=== PATIENT | female | born 1950 | race Caucasian/White ===

== ENCOUNTER 2021-08-24 11:46 | Inpatient (IN) | payer MEDICARE, SELFPAY ==
[2021-08-24] VITALS (29 sets, daily range): BP systolic 98–159; BP diastolic 54–88; PULSE 67–105; RESP 14–27; TEMP 35.7–36.9; O2SAT 85–100; BMI 36.8; BMI 368357.4
--- NOTE | 2021-08-24 11:50 | CM.ED ---
Social Work Note Reason for Referral: STEMI Alert SW responded to STEMI Alert. Pt's brother Forrest Paniagua and neighbor Enrique Granados present at [facility]. SW met with family/friend and provided emotional support. Forrest states that pt is single and has no children. Forrest states he is unaware if pt has LW. Forrest states that pt has no allergies that he is aware of and states that pt has history of High Blood Pressure. Forrest states that pt is not a smoker. [facility] updated RN of this information. Forrest states that pt lives in [place] and [place] lives in [place]. Forrest states that there is a total of 6 siblings - 4 brothers and two sisters. Forrest states that his number is [phone]. Cici Granados, Enrique's , now present at [facility] and states that she can be a second contact if [facility] is not able to get a hold of Forrest. Cici states her number is [phone]. [facility] updated that pt will be going to CT Scan and then to [facility]. Pt's family is able to wait in [facility] waiting area. [facility] updated pt's brother Forrest and neighbors Enrique and Cici. SW led Forrest, Enrique, and Cici to [facility] waiting area. SW to remain available should additional needs arise. Evelia Murphy FORGING PRESS OPERATOR, MEDICAL DIAGNOSTIC RADIOGRAPHER
--- NOTE | 2021-08-24 11:54 | ED.RN ---
PT ARRIVES TO ED VIA EMS, ROSC PRIOR TO ARRIVAL TO ED. PT MOVED TO BED, BAGGING TRANSFERRED FROM EMS TO RESPIRATORY THERAPY. PT PREPPED FOR INTUBATION. EKG COMPLETED, SINUS TACHYCARDIA. PT INTUBATED AT [address] FONTAINE SIZE 7.5 TUBE, 23 CM AT LIP. KAT CATHETER INSERTED AT 1155 BY MALLORY CARDOSO. THREAD TRIMMER PLACED ON ARRIVAL. PT PLACED IN GOWN. PROFESSOR OF RELIGIOUS STUDIES AT BEDSIDE.
--- NOTE | 2021-08-24 11:56 | EKG12_ITS ---
Test Reason : STEMI Blood Pressure : / mmHG Vent. Rate : 108 BPM Atrial Rate : 108 BPM P-R Int : 152 ms QRS Dur : 080 ms QT Int : 356 ms P-R-T Axes : 000 -21 101 degrees QTc Int : 477 ms Sinus tachycardia Nonspecific ST and T wave abnormality Abnormal ECG Confirmed by TRISTAN AL, STAR ([id number]), state editor RADHA OSEI ([id number]) on 08/26/2021 11:02:26 AM Referred By: Gianni Dempsey Confirmed By:STAR HUDSON MD
--- NOTE | 2021-08-24 11:56 | RAD_ITS ---
ACR Level 3 findings have been noted. An addendum which confirms receipt of the report will follow. HISTORY: chest pain, post intubation. TECHNIQUE: XR Chest 1 View. COMPARISON: None. FINDINGS: CARDIOMEDIASTINAL BORDERS: Right mainstem intubation. Endotracheal tube extends to the stomach with the tip excluded from the [id number]. Exaggeration of the cardiac and mediastinal borders secondary to hypoventilatory film. LUNGS: Low lung volumes with patchy opacities in the left lung and mild right basilar opacity. PLEURA: No pleural effusion or pneumothorax seen. OSSEOUS STRUCTURES: Unremarkable. RAD/Chest 1 View (Portable) IMPRESSION: Right mainstem intubation; recommend 6 cm retraction. Satisfactory appearance of nasogastric tube. Low lung volumes with left greater than right atelectasis or pneumonia. Electronically Signed: Staci Jensen MD at 13:01 EDT ,
--- NOTE | 2021-08-24 11:57 | ED.RN ---
HUMERAL HEAD IO INSERTED PER EMS, INFILTRATED ON ARRIVAL TO ED. IO REMOVED. DRESSING PLACED OVER LEFT HUMERAL HEAD SITE.
[2021-08-24] MEDS: 0.9% Normal Saline 1,000 ML 1000 ML IV (12:01)
--- NOTE | 2021-08-24 12:02 | CT_ITS ---
STUDY: CTA CHEST REASON FOR EXAM: Female, 71 years old. Full arrest. CPR RADIATION DOSAGE (If Supplied By Facility): CTDIvol = ( 15.02 ) mGy, DLP = ( 368.73 ) mGycm TECHNIQUE: The examination was performed with the intravenous administration of IV 75mL Isovue-370. Post-processing of the angiographic images was performed, with multiplanar reformation and 3D reconstruction. Individualized dose optimization techniques were used for this CT. COMPARISON: None. FINDINGS: There is an endotracheal tube in place extending 1.7 cm into the right mainstem bronchus. There is an enteric tube in place terminating within the expected region of the distal stomach/proximal duodenum. Motion artifact degrades anatomic detail Normal enhancement of the main pulmonary artery and right and left pulmonary arteries. Normal enhancement of the bilateral peripheral pulmonary arteries. There is no demonstrated pulmonary embolism. There are peripheral calcifications of the descending thoracic aorta. There is no demonstrated aortic dissection. There are calcifications of the coronary arteries. Normal mediastinum. Normal hilar regions. Normal visualized trachea and bronchi. There is dependent consolidation within the upper and lower lobes, most pronounced within the left lower lobe. There are degenerative changes of thoracic spine. Normal visualized upper abdomen. CT/CTA Chest W/WO Contrast IMPRESSION: No demonstrated pulmonary embolism or arterial dissection. Endotracheal tube with in the right mainstem bronchus, recommend retraction by 5 cm. Bilateral dependent consolidation, most pronounced within the left lower lobe. Atherosclerosis. Electronically Signed: Roxane Lezama MD at 13:27 EDT ,
--- NOTE | 2021-08-24 12:02 | CT_ITS ---
STUDY: CT BRAIN WITHOUT CONTRAST REASON FOR EXAM: Female, 71 years old. Changed mental status. CARDIAC ARREST RADIATION DOSAGE (If Supplied By Facility): CTDIvol = ( 44.99 ) mGy, DLP = ( 863.60 ) mGycm TECHNIQUE: Transaxial CT imaging of the brain was performed without administration of intravenous contrast material. Individualized dose optimization techniques were used for this CT. COMPARISON: No relevant priors. FINDINGS: Normal soft tissue structures. Normal calvarium. There is mild cerebral atrophy with widening of the extra-axial spaces and ventricular dilatation. Normal white matter tracts of the cerebral hemispheres. Normal basal ganglia and thalami. Normal brainstem. Normal cerebellum. There is no intracranial hemorrhage. There are no findings of an acute ischemic infarction. Normal visualized paranasal sinuses. CT/Brain/Head without Contrast IMPRESSION: Chronic involutional changes of the brain. Electronically Signed: Roxane Lezama MD at 13:21 EDT ,
[2021-08-24] MEDS: Aspirin 81 MG TAB.CHEW 324 MG PO (12:03)
--- NOTE | 2021-08-24 12:03 | EX.ED.DYSGE1 ---
HPI History of Present Illness Chief Complaint: CPR Informant: EMS Narrative Narrative: Patient is not responding, nonverbal and has I gel airway in place. History is not obtainable from the patient. Family has not yet here. EMS states that they were told last night the patient did not feel well and was having some chest pain. Today she went outside in the yard. Her heard and she evidently fell to the ground. She was not having a pulse or breathing so he started bystander CPR and EMS arrived. CPR was approximately 15 minutes estimated. They found the patient in fine V. fib and then coarse V. fib. She was shocked approximately 4-5 times and about 3 doses of epinephrine. They got return of spontaneous circulation. Initial heart rate was 140s or 150s. I gel was placed. Her heart rate has come down. Her blood pressure is been about 115 or 120. Past medical history: Reportedly high blood pressure only Unknown medications Unknown allergies No recent surgery or travel. Lives at home with unknown smoking status [facility] Medical History HTN (hypertension) Allergy/AdvReac Type Severity Reaction Status Date / Time No Known Allergies Allergy Verified 08/24/21 12:12 Social History Smoking Status: Never smoker ROS ROS ED Review of Systems ROS Unobtainable: due to endotracheal tube and due to mental condition EXAM Physical Exam Const Vital Signs: 08/24/21 11:47 08/24/21 11:51 08/24/21 11:58 Temperature 97.6 F L Temperature Source Temporal Pulse Rate 98 97 Respiratory Rate 16 18 18 Respiratory Depth Respiratory Pattern Blood Pressure 116/66 116/66 128/68 H Blood Pressure Mean 82 88 Pulse Ox 99 85 Oxygen Delivery Method Room Air Room Air Fraction of Inspired Oxygen (FIO2) 08/24/21 12:00 08/24/21 12:04 08/24/21 12:15 Temperature 98.3 F Temperature Source Core Pulse Rate 93 Respiratory Rate 14 Respiratory Depth Normal Respiratory Pattern Normal Blood Pressure 113/69 Blood Pressure Mean 83 Pulse Ox 88 94 98 Oxygen Delivery Method Mechanical Ventilator Mechanical Ventilator Mechanical Ventilator Fraction of Inspired Oxygen (FIO2) 100 08/24/21 12:18 08/24/21 12:53 08/24/21 11:54 Temperature 98.5 F Temperature Source Core Pulse Rate 104 H 97 Respiratory Rate 14 18 Respiratory Depth Respiratory Pattern Normal Blood Pressure 113/69 Blood Pressure Mean 83 Pulse Ox 98 95 Oxygen Delivery Method Room Air Fraction of Inspired Oxygen (FIO2) 100 65 08/24/21 12:00 Temperature Temperature Source Pulse Rate Respiratory Rate Respiratory Depth Respiratory Pattern Blood Pressure Blood Pressure Mean Pulse Ox 87 Oxygen Delivery Method Fraction of Inspired Oxygen (FIO2) 100 Positive well nourished, well developed and obese; Negative for unkempt Constitutional Narrative: Patient has IVs in both arms/hands. IO in the left shoulder but looks a bit swollen around it. I gel is in place. Automatic CPR device is over the patient but is not working at this time as she has a pulse and a heart rate at this time. General Appearance ED: well developed; Negative for unkempt or cyanotic Nutritional Appearance: obese HEENT Reports moist mucous membranes HEENT Narrative: Do not see signs of notable head trauma. Eyes Eyes Narrative: Pupils are about 2 to 3 mm. They do appear to be slightly reactive. Neck Neck Narrative: Thick neck. Very hard to assess for JVD Chest Wall inspection of chest normal Chest Narrative: Good stress is with ambo. Resp No normal respiratory effort Resp Narrative: Relatively clear bilaterally Cardio regular rate and regular rhythm Rate: other Other Details: Heart rate is just about 100. It does appear to be sinus on the monitor. She has palpable peripheral pulses. Peripheral skin color also looks perfused at this time GI normal to inspection, nondistended, normoactive bowel sounds GI Narrative: Obese but otherwise benign. I see no hematomas. Extremity Extremity Narrative: No mottling. No abnormal swelling. No asymmetry. Neuro Neuro Narrative: At this time, patient not responding. There is a tendency toward taking a few breaths independently. Psych Appearance: Negative for unkempt Skin no rashes or lesions noted Skin Narrative: no mottling MDM MDM MDM Narrative Medical decision making narrative: I looked at the patient's plain film of the chest at bedside. It appears as though the tube was about 2 or so centimeters too deep. It was at 23 cm which surprised me that it would look that way on the x-ray. I thought breath sounds were subtly less on the left than the right but they were still present. We pulled back the tube just 1 cm planning to repeat the x-ray. When we pulled back the tube and try to inflate the balloon it felt as though it was in the cords. For this reason we put the balloon back at 23 cm. The repeat x-ray looked slightly improved and her breath sounds did sound better. Since she was oxygenating well, we proceeded to send her to CAT scan as we will get more of a definitive indication of position. When I get the CAT scan images back I looked at those. The tube is too far in. We are going to pull this back 2 cm. She may just have a very short distance between falguni and lips. I did get a call from Dr. Denney as we were putting in orders. He had gone over the EKGs and history with Dr. Dempsey. Plan will be to do a CTA of the chest. She will then go directly to catheterization lab to do a heart cath. We are pending results at this time. I also have hospitalist on page to notify them. Family evidently went up to the Public Administration Teacher. Dr. Denney spoke with him. They stated that patient just did not feel well last night but did not specifically have chest pain. Her heart catheterization showed no obstruction. Final report of CT shows no PE or dissection. Endotracheal tube was in far. We are pulling this back 2 cm in route will repeat image. Patient is only 23 cm and we do not want a pull that back too far. The x-ray was suggesting pulling back 6 cm but this would put her tube only at 17 cm which is very shallow. We will pull this tube back sequentially and repeat imaging. This will likely be done in the ICU. I discussed the case directly with to respiratory therapist and showed them the images and measuring on the CT. We also discussed this with hospitalist and cardiology. They are going to discuss possibility of cooling versus transfer as we cannot do cooling here. We are still pending some blood work at this time. Lab Data Labs: Laboratory Results - last 24 hr 08/24/21 08/24/21 08/24/21 12:00 12:00 12:00 WBC 11.4 H RBC 4.22 Hgb 12.9 Hct 38.7 MCV 91.7 MCH 30.6 MCHC 33.3 RDW Std Deviation 42.6 RDW Coeff of Dougie 12.7 Plt Count 252 MPV 11.3 Immature Gran % (Auto) 4.900 H Neut % (Auto) 58.6 Lymph % (Auto) 26.9 Spencer % (Auto) 7.4 Eos % (Auto) 1.7 Baso % (Auto) 0.5 Absolute Neuts (auto) 6.7 Absolute Lymphs (auto) 3.06 Nucleated RBC % 0 PT 15.3 H INR 1.2 APTT 65.1 H Sodium 139 Potassium 4.1 Chloride 108 H Carbon Dioxide 18.0 L Anion Gap 13 BUN 35 H Creatinine 1.27 H Estim Creat Clear Calc 42.17 Est GFR (MDRD) Af Amer 54 L Est GFR (MDRD) Non-Af 44 L BUN/Creatinine Ratio 27.6 H Glucose 297 H Calcium 8.9 Magnesium 2.1 Troponin I High Sens 283 H* TSH 5.95 H Radiography Diagnostic Testing: Clinical Impression(s) from Imaging Studies Chest X-Ray 08/24/21 11:56 IMPRESSION: Right mainstem intubation; recommend 6 cm retraction. Satisfactory appearance of nasogastric tube. Low lung volumes with left greater than right atelectasis or pneumonia. Electronically Signed: Staci Jensen MD at 13:01 EDT , ADDENDUM: 08/24/21 1324 IMPRESSION: Right mainstem intubation; recommend 6 cm retraction. Satisfactory appearance of nasogastric tube. Low lung volumes with left greater than right atelectasis or pneumonia. N.B. : Suresh Barriga MD, confirmed on 08/24/2021 13:17:20 (ET) that the healthcare facility has received the radiology report. Electronically Signed: Staci Jensen MD at 13:01 EDT , Brain CT 08/24/21 12:02 IMPRESSION: Chronic involutional changes of the brain. Electronically Signed: Roxane Lezama MD at 13:21 EDT , Chest CTA 08/24/21 12:02 IMPRESSION: No demonstrated pulmonary embolism or arterial dissection. Endotracheal tube with in the right mainstem bronchus, recommend retraction by 5 cm. Bilateral dependent consolidation, most pronounced within the left lower lobe. Atherosclerosis. Electronically Signed: Roxane Lezama MD at 13:27 EDT , Chest X-Ray 08/24/21 12:15 IMPRESSION: Endotracheal tube within the right mainstem bronchus, recommend retraction of 4-5 cm. Patchy opacity within the left lower lung may be secondary to underlying atelectasis and/or pneumonia. Electronically Signed: Roxane Lezama MD at 13:29 EDT , Procedures Intubations Intubation Method: orotracheal Intubation Verification: Positive color change (Please see MDM for details regarding intubation and depth of tube. No sedation needed.) Critical Care Time Critical Care Time: Yes Critical care time (excluding procedures): 30-74 minutes and - (52 minutes. Patient care, discussion with consultants and other staff, documentation, reviewing images) Discharge Plan Dx/Rx/DC Orders Clinical Impression: Cardiopulmonary arrest, Respiratory failure, Elevated troponin Disposition Disposition: Acute Care [facility]
[2021-08-24] MEDS: TICAGRELOR 90 MG TABLET 180 MG PO (12:08)
--- NOTE | 2021-08-24 12:11 | ED.RN ---
GHISLAINE CARVER IN GREEN GLASSES CASE IN HER PURSE.
--- NOTE | 2021-08-24 12:11 | ED.RN ---
GOLD [address] IN GREEN GLASSES CASE IN PURSE.
--- NOTE | 2021-08-24 12:13 | ED.RN ---
XRAY PER MINAL REVIEWED. REPORTS ET TUBE NEEDS TO BE WITHDRAWN 1 CM. RESPIRATORY AT BEDSIDE.
--- NOTE | 2021-08-24 12:15 | RAD_ITS ---
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 ET TUBE PLACEMENT#2 TECHNIQUE: Single frontal view of the chest. COMPARISON: 08/24/2021 at 11:58 AM. FINDINGS: There is an endotracheal tube in place extending 0.8 cm into the right mainstem bronchus there is an enteric tube in place terminating caudal to the inferior margin of the image. There is a patchy opacity within the left lower lung. Normal size heart. Normal mediastinum and loco. Normal visualized pulmonary arteries. Normal visualized aortic arch and descending thoracic aorta. Normal visualized thoracic spine. Normal visualized ribs, clavicles, and shoulders. There is no demonstrated abnormality of the visualized soft tissue structures of the upper abdomen. RAD/Chest 1 View (Portable) IMPRESSION: Endotracheal tube within the right mainstem bronchus, recommend retraction of 4-5 cm. Patchy opacity within the left lower lung may be secondary to underlying atelectasis and/or pneumonia. Electronically Signed: Roxane Lezama MD at 13:29 EDT ,
[2021-08-24] MEDS: Heparin Injection (Vial) 5,000 UNIT/ML VIAL 4000 UNIT IV (12:21)
[2021-08-24 12:22] LABS: Absolute Lymphocyte Count 3.06 X10^3/uL (0.83-4.51); Absolute Neutrophil Count 6.7 X10^3/uL (2.0-7.7); Basophil# 0.06 X10^3/uL; Basophil% 0.5 % (0-1); Eosinophil# 0.19 X10^3/uL; Eosinophils% 1.7 % (0-5); Hematocrit 38.7 % (37-47); Hemoglobin 12.9 g/dL (12.0-15.0); Lymphocyte # 3.06 X10^3/ul (0.83-4.51); Lymphocyte % 26.9 % (19-41); Mean Corp Hgb Conc 33.3 g/dL (32-36); Mean Corpuscular Hgb 30.6 pg (27.0-32.0); Mean Corpuscular Volume 91.7 fL (81-99); Mean Platelet Vol. 11.3 fl (6.2-12.0); Monocyte# 0.84 X10^3/uL; Monocyte% 7.4 % (0-10); NRBC Flagged by Analyzer 0 % (0-5); Neutrophil # 6.68 X10^3/uL (2.7-7.7); Neutrophil % 58.6 % (47-70); Platelet Count 252 K/mm3 (150-450); RBC Distribution Width CV 12.7 % (11.6-14.6); RBC Distribution Width SD 42.6 fl (35.1-43.9); Red Blood Count 4.22 M/mm3 (4.2-5.4); White Blood Count 11.4 K/mm3 (4.4-11.0)
[2021-08-24] MEDS: HEPARIN/D5w 25,000 UNITS 25,000 UNITS/250 ML IV.SOLN. 10 UNITS CONT INF (12:22)
[2021-08-24 12:31] LABS: International Normalized Ratio 1.2; Prothrombin Time (Protime)PT. 15.3 SECONDS (11.7-14.9)
[2021-08-24 12:32] LABS: Partial Thromboplast Time 65.1 Seconds (24.1-36.2)
--- NOTE | 2021-08-24 12:54 | ED.RN ---
WHEN RESPIRATORY ATTEMPTED TO WITHDRAW ET TUBE, DIFFICULTY OCCURRED, UNABLE TO WITHDRAW. TUBE REMAINING AT 23CM AT LIP. DR. FONTAINE INFORMED. DR. FONTAINE ORDERS REPEAT XRAY. AIRWAY MANAGED PER RESPIRATORY.
[2021-08-24 13:39] LABS: Anion Gap 13 (5-15); BUN 35 mg/dL (7-18); BUN/Creat Ratio 27.6 RATIO (10-20); Calcium,Total 8.9 mg/dL (8.5-10.1); Chloride 108 mmol/L (98-107); Creatinine, Serum 1.27 mg/dL (0.55-1.02); EST Glomerular Filtration Rate 44 mL/min (>60); Est Glom Filt Rate - Afr Amer 54 mL/min (>60); Estimated Creatinine Clearance 42.17 ml/min; Glucose 297 mg/dL (74-106); Magnesium 2.1 mg/dL (1.6-2.6); Potassium 4.1 mmol/L (3.5-5.1); Sodium Level 139 mmol/L (136-145); Thyroid Stim Hormone (TSH) 5.95 uIU/mL (0.358-3.74); Troponin-I HS (w/2H Reflex) 283 pg/mL (3.0-54.0)
--- NOTE | 2021-08-24 13:50 | CL.D_ITS ---
Patient Name: AYESHA OTTO Study Date: 08/24/2021 Performing: Robbie Denney MD Ht: 68.11 inches 173 cm : 1950 Wt: 242.51 lbs 110 kg Age: 71 Gender: female BSA: 2.22 PROCEDURE(S) PERFORMED [id number])LHC/COR/LV CLINICAL PROFILE AND INDICATIONS Indications: Other Heart Failure: None Stress/Imaging Stress/Image Study Performed: No CAD Presentations: Other: Cardiac arrest CONCLUSIONS Non obstructive coronary arteries Normal LV size, wall motion,and systolic function RECOMMENDATIONS Medical therapy DESCRIPTION OF PROCEDURE The patient arrived to the procedure lab. The risks and benefits of the procedure as well as a full d escription of our services here and current unavailability of surgical backup were fully explained to the patient and/or their significant other prior to the catheterization. The Timeout was completed, verifying the correct patient and procedure. The patient's procedural site was prepped and draped in the usual fashion. Local anesthetic was given subcutaneously to right radial region with Lidocaine 2% . Using a modified Seldinger technique, arterial access was obtained via the right radial artery, a 6 Fr sheath was inserted. Left Coronary Artery selective angiography was performed in multiple views u sing a 5 Fr. 4.0 Marion catheter. Right Coronary Artery selective angiography was then performed in mu ltiple views using a 5 Fr. 4.0 Marion catheter. Left Ventriculography was performed in LOUIS projection using a 5 Fr. Pigtail catheter. LV to AO pullback pressures were then recorded.The arterial sheath was pulled and a TR Band was applied for hemostasis. 8cc of air CORONARY ANGIOGRAPHY DOMINANCE: Right Dominant LEFT HEART ASSESSMENT Left Ventricular Ejection Fraction: by LV Gram 60 % Normal LV wall motion Normal Left Ventricular systolic function LEFT MAIN: Angiographically normal, No significant disease noted LEFT ANTERIOR DESCENDING ARTERY: Mild luminal irregularities less than 30% CIRCUMFLEX ARTERY: Mild luminal irregularities less than 30% RIGHT CORONARY ARTERY: Mild luminal irregularities less than 30% COMPLICATIONS No Complications PROCEDURE MEDICATIONS Oxygen: 60 % FiO2 via ventilator. See Resp Record for Settings Heparin 25,000u / 250ml D5W @ 10 u/hr IV started in ED 08/24/2021 12:53:27 Heparin 25,000u / 250ml D5W @ u/hr discontinued 08/24/2021 12:57:54 SUMMARY OF HEMODYNAMIC DATA Time AIR REST ECG 12:51:08 AO 112/70 (88) SA 13:02:42 LV 110/9, 12 13:09:22 LV 103/12, 14 13:09:29 LV 113/15, 22 13:10:50 LVp 104/27, 53 13:11:00 AOp 121/70 (94) 13:11:05 Signed By Robbie Denney MD On 08/24/2021 13:48:54 Robbie Denney MD
--- NOTE | 2021-08-24 14:02 | PCM.CONS.C ---
Assessment & Plan Assessment/Plan (1) Cardiopulmonary arrest: PLAN: Patient is status post pulmonary arrest. She underwent a cardiac catheterization today which demonstrates essentially normal coronary arteries with preserved ejection fraction. At this point in time it does not appear that a cardiac etiology was responsible for the above. Will continue to follow peripherally. HPI Consult Data Date of Consult: 08/24/21 HPI Narrative HPI Narrative: AYESHA OTTO, is a 71 F who presents to the emergency room with a cardiorespiratory arrest. The patient apparently was not feeling well yesterday but this morning felt well enough to take a power tool and go try to fix a deck in her brother's house. She had no cardiac complaints but then after the brother went in and came back she was apparently lying on the deck foaming at the mouth with a power tool. She had denied any dizziness diaphoresis near syncope or syncope prior to the above. Her EKG was transmitted initially and showed sinus tachycardia and initially was thought to be a STEMI but on further evaluation was not. When she arrived in the emergency room her EKG demonstrated sinus rhythm with no acute changes. After discussion with interventional is in the ER physician the patient was taken emergency to the CAT scan and then brought to the cardiac catheterization lab. [facility] Medical History HTN (hypertension) Allergy/AdvReac Type Severity Reaction Status Date / Time No Known Allergies Allergy Verified 08/24/21 12:12 Social History Smoking Status: Never smoker ROS Review of Systems ROS Unobtainable: due to encephalopathy and due to endotracheal tube Physical Exam Const alert, oriented x3 and no apparent distress General Appearance: cooperative HEENT hearing grossly normal bilaterally Head and Scalp: atraumatic Eyes EOMs intact bilaterally Neck General: normal visual inspection Chest inspection of chest normal and palpation of chest normal Resp normal respiratory effort Auscultation: clear to auscultation bilaterally Cardio regular rate, regular rhythm, S1 normal heart sound and S2 normal heart sound Jugular Venous Distention: JVD GI normal to inspection, nondistended, normoactive bowel sounds Extremity normal capillary refill and no pedal edema Peripheral Pulses: Yes pulses 2+ throughout and femoral pulses present Skin no rashes or lesions noted Neuro oriented x3 and CN's II-XII intact bilaterally Psych Appearance: grossly normal and appropriate Risk Stratification Risk Stratification Applicable: No Objective Data Vital Signs: Vital Signs Temp Pulse Resp BP Pulse Ox O2 Del Method FiO2 98.5 F 89 14 113/69 98 Room Air 100 08/24/21 12:53 08/24/21 13:55 08/24/21 12:53 08/24/21 12:53 08/24/21 12:53 08/24/21 12:53 08/24/21 12:18 Oxygen Delivery Method Room Air Weight: 242 lb 4.608 oz Body Mass Index (BMI) 36.8 Lab / Micro Data Result Diagrams: 08/24/21 12:00 08/24/21 12:00 Labs: Laboratory Results - last 24 hr 08/24/21 12:00: WBC 11.4 H, RBC 4.22, Hgb 12.9, Hct 38.7, MCV 91.7, MCH 30.6, MCHC 33.3, RDW Std Deviation 42.6, RDW Coeff of Dougie 12.7, Plt Count 252, MPV 11.3, Immature Gran % (Auto) 4.900 H, Neut % (Auto) 58.6, Lymph % (Auto) 26.9, [place] % (Auto) 7.4, Eos % (Auto) 1.7, Baso % (Auto) 0.5, Absolute Neuts (auto) 6.7, Absolute Lymphs (auto) 3.06, Nucleated RBC % 0 08/24/21 12:00: Sodium 139, Potassium 4.1, Chloride 108 H, Carbon Dioxide 18.0 L, Anion Gap 13, BUN 35 H, Creatinine 1.27 H, Estim Creat Clear Calc 42.17, Est GFR (MDRD) Af Amer 54 L, Est GFR (MDRD) Non-Af 44 L, BUN/Creatinine Ratio 27.6 H, Glucose 297 H, Calcium 8.9, Magnesium 2.1, Troponin I High Sens 283 H*, TSH 5.95 H 08/24/21 12:00: PT 15.3 H, INR 1.2, APTT 65.1 H Cardiology Labs/Tests 08/24/21 12:00: WBC 11.4 H, RBC 4.22, Hgb 12.9, Hct 38.7, MCV 91.7, MCH 30.6, MCHC 33.3, Plt Count 252, MPV 11.3, Immature Gran % (Auto) 4.900 H, Neut % (Auto) 58.6, Lymph % (Auto) 26.9, [place] % (Auto) 7.4, Eos % (Auto) 1.7, Baso % (Auto) 0.5, Absolute Neuts (auto) 6.7, Nucleated RBC % 0 08/24/21 12:00: Sodium 139, Potassium 4.1, Chloride 108 H, Carbon Dioxide 18.0 L, Anion Gap 13, BUN 35 H, Creatinine 1.27 H, Est GFR (MDRD) Af Amer 54 L, Est GFR (MDRD) Non-Af 44 L, BUN/Creatinine Ratio 27.6 H, Glucose 297 H, Calcium 8.9, Magnesium 2.1 08/24/21 12:00: PT 15.3 H, INR 1.2, APTT 65.1 H Rhythm: EKG: ECHO: Stress Test: Cardiac Cath: PCI: CT Surgery: Holter monitor: EPS: PPM: CXR: Chest CT Scan: Radiography Diagnostic Testing: Radiology Impression Chest X-Ray 08/24/21 11:56 IMPRESSION: Right mainstem intubation; recommend 6 cm retraction. Satisfactory appearance of nasogastric tube. Low lung volumes with left greater than right atelectasis or pneumonia. Electronically Signed: Staci Jensen MD at 13:01 EDT Reading Location ID and State: [facility] / [place] Tel , Service support , ADDENDUM: 08/24/21 1324 IMPRESSION: Right mainstem intubation; recommend 6 cm retraction. Satisfactory appearance of nasogastric tube. Low lung volumes with left greater than right atelectasis or pneumonia. N.B. : Suresh Barriga MD, confirmed on 08/24/2021 13:17:20 (ET) that the healthcare facility has received the radiology report. Electronically Signed: Staci Jensen MD at 13:01 EDT , Brain CT 08/24/21 12:02 IMPRESSION: Chronic involutional changes of the brain. Electronically Signed: Roxane Lezama MD at 13:21 EDT , Chest CTA 08/24/21 12:02 IMPRESSION: No demonstrated pulmonary embolism or arterial dissection. Endotracheal tube with in the right mainstem bronchus, recommend retraction by 5 cm. Bilateral dependent consolidation, most pronounced within the left lower lobe. Atherosclerosis. Electronically Signed: Roxane Lezama MD at 13:27 EDT , Chest X-Ray 08/24/21 12:15 IMPRESSION: Endotracheal tube within the right mainstem bronchus, recommend retraction of 4-5 cm. Patchy opacity within the left lower lung may be secondary to underlying atelectasis and/or pneumonia. Electronically Signed: Roxane Lezama MD at 13:29 EDT ,
[2021-08-24] MEDS: Morphine 4 MG/ML Syringe IV (14:05)
--- NOTE | 2021-08-24 14:05 | CPS ---
pt et tube was left at [address] del castillo with very full remotely piloted vehicle controller balloon problem
--- NOTE | 2021-08-24 14:05 | CPS ---
when et tube moved in ER per dr frost to 22 cm at lip the cuff over inflated with minimal air making the ems helicopter pilot baloon over expand risking it popping. ET tube was placed back at 23 and issue resolved. Upon reaching the floor was instructed by dr del castillo to pull tube back to 21 cm. When this was done the same issue occurred with the ems helicopter pilot balloon being overinflated. Dr. del castillo then informed to pull tube back to 20cm of which same issue occured with overinflated ems helicopter pilot cuff. Then she informed to put tube back at 23 of which then had same issue with cuff being very full when it did not occur before. Was then instructed to put et tube back at 21 even though the ems helicopter pilot cuff very full with minimal air. Patients tidal volume and vitals stable and patient resting easy.
[2021-08-24] MEDS: 0.9% Normal Saline 1,000 ML 70 ML IV (14:10)
[2021-08-24] MEDS: Propofol 10MG/Ml 1,000 MG/100 ML Bottle 6.6 MG CONT INF (14:11)
--- NOTE | 2021-08-24 14:14 | ECHOCS_ITS ---
Reason For Study: Syncope Procedure This was a 2D Doppler, Color Flow transthoracic echocardiogram. The study was technically difficult. Contrast injection was performed. Exam performed portable in ICU/CCU. Left Ventricle Normal LV size. Left ventricular systolic function is normal. The estimated ejection fraction is 55 %. Stage 1 diastolic dysfunction. No regional wall motion abnormalities noted. Right Ventricle Normal RV size. Normal systolic function. Atria Normal left atrium. Normal right atrium. Mitral Valve Normal mitral valve. Tricuspid Valve Normal tricuspid valve. Aortic Valve Normal aortic valve. Pulmonic Valve Normal pulmonic valve. Great Vessels Normal aortic root. The pulmonary artery is normal size. Normal inferior vena cava. Pericardium/Pleural No pericardial effusion. Medication Diluted definity 2ml given slow IV push to enhance endocardial definition. MMode/2D Measurements & Calculations LVIDd: 4.3 cm IVSd: 1.1 cm Ao root diam: 3.2 cm LVIDs: 3.0 cm LVPWd: 1.2 cm RVDd: 2.4 cm FS: 31.2 % LAV(MOD-bp): 48.0 ml LA A4 area: 18.7 cm2 LA dimension(2D): 3.2 cm LAV(MOD-bp) Indexed: 21.7 ml/m2 LAV(MOD-sp2): 40.0 ml LAV(MOD-sp4): 53.0 ml RA A4 area: 13.3 cm2 Time Measurements MV dec time: 0.17 sec Doppler Measurements & Calculations MV E max suresh: 63.6 cm/sec Lat Peak E' Suresh: 9.5 cm/sec Med Peak E' Suresh: 7.2 cm/sec MV A max suresh: 64.2 cm/sec E/E' lat: 6.7 E/E' med: 8.9 MV E/A: 0.99 MV V2 max: 81.2 cm/sec MV dec slope: 377.7 cm/sec2 Ao V2 max: 165.8 cm/sec MV max P.6 mmHg Ao max P.0 mmHg MV V2 mean: 57.2 cm/sec MV mean P.4 mmHg MV V2 VTI: 20.8 cm LV V1 max: 110.7 cm/sec PA V2 max: 122.0 cm/sec LV V1 max P.9 mmHg ECHO/Echo Complete W/ Contrast Interpretation Summary Normal LV size. Left ventricular systolic function is normal. The estimated ejection fraction is 55 %. Stage 1 diastolic dysfunction. Contrast injection was performed. Ordering Physician: Angela Milian Referring Physician: Gianni Dempsey Performed By: Elizabeth Stroud RCS
--- NOTE | 2021-08-24 14:17 | PCM.HP.STD ---
Documented by User: Dr. Angela Milian DO 08/24/21 18:19 HPI - General General Date of Admission: 08/24/21 Date of Service: 08/24/21 Chief Complaint: CPA HPI Narrative Dr. Milian Ms. Otto is a 71-year-old white female who presented to the emergency department [facility] on 08/24/2021 following a cardiopulmonary arrest. Her history is obtained from her family. Evidently he and the patient had been working on replacing deck boards at his house for the last 2 days. Yesterday the patient reported that she had not been feeling well but was nonspecific in her complaints at that time. The patient evidently arrived at his house at 10 AM to help and she reported at that time she had difficulty sleeping and had some chest pain through the night. He reported she told him that she woke up ate something and then was able to get some sleep and was feeling better. She went outside and began using a drill to remove screws from the deck to replace the boards and had me removed approximately 6 screws. She had been outside no longer than 5 to 10 minutes at which time he found her lying on the deck with her eyes open and foaming at the mouth. The brother at that time called a neighbor who came over to his house and started CPR on the patient. She was down for an unknown amount of time before CPR was initiated. EMS was called at that time as well. Upon EMS arrival the patient's rhythm was fine V. fib and then coarse V. fib. CPR was continued and she was given approximately 4-5 shocks and 3 rounds of epinephrine. ROSC was achieved with initial heart rate of 140s to 150s and advanced airway was placed. Her EKG on transport to the hospital was concerning for a STEMI and a STEMI team was called. Estimated CPR time was approximately 15 minutes. Repeat EKG at the emergency department showed resolution of ST elevation. Upon arrival to the emergency department her temperature was 97.6, heart rate 98, blood pressure 116/66, respiratory rate of 16 and her oxygen saturations were 99% with artificial airway at 100%. Her CBC is overall unremarkable showing only a mild white count elevation 11.4. Her coags were unremarkable. Her chemistry panel showed mild hyperchloremia with a chloride of 108 and a serum bicarb of 18, BUN was 35 and serum creatinine was 1.27, transaminases were elevated for an AST of 121 and ALT of 107. Alk phos and bilirubin are normal. Initial troponin was 283 and not unexpectedly her CK was elevated at 264. Hemoglobin A1c was obtained as her initial blood sugar was 297 and was found to be 5.8. Her TSH is 5.95. Her UA is unremarkable. Her serum tox screen is positive for opiates which she was given here and benzodiazepines. Ethyl alcohol level was less than 3. She was taken emergently to the cardiac lab [employer] and was found to have unremarkable coronary disease at less than 30% in any given vessel. On admission a CT of her brain showed only chronic involutional changes. Her CTA showed no pulmonary embolism or arterial dissection, her endotracheal tube was in the right mainstem bronchus, and she had bilateral dependent consolidation most pronounced in the left lower lobe along with atherosclerosis. Given her ET tube being in the right mainstem bronchus her tube was pulled back 3 cm. [employer] Student AYESHA OTTO, is a 71 F who presents to the [facility] emergency department following cardiopulmonary arrest. Per patient's brother, he and the patient have been working to replace deck boards yesterday and today. Yesterday, the patient complained of not feeling well. The patient arrived to her brother's house today at approximately 10 AM and reported to have had difficulty sleeping last night with chest pain. However, the patient woke up this morning, ate something, and was then able to get some sleep. The patient then went outside and began using the drill to remove deck screws. The brother states she had been outside just long enough to remove maybe 6 screws and he found her lying on the deck, eyes open, and foaming at the mouth. The brother then called the neighbor who responded and began CPR. EMS arrived and found the patient in fine V. fib and then coarse V. fib.? She was shocked approximately 4-5 times and about 3 doses of epinephrine.? They got return of spontaneous circulation.? Initial heart rate was 140s or 150s.? I gel was placed.?Her EKG was transmitted initially and showed sinus tachycardia and initially was thought to be a STEMI, and a STEMI alert was called LIC[employer]ED [employer] DIRECT[employer] AND EMBAL[employer]. On arrival, EMS estimated CPR time to be approximately 15 minutes. The patient's initial vital signs on arrival to the emergency department were temperature of 97.6, heart rate 98, blood pressure 116/66, respiratory rate of 16, and oxygen saturation of 99% on room air. Her repeat EKG demonstrated sinus rhythm with no acute changes. The patient remained unresponsive however and was intubated. Per the emergency physician, the patient was somewhat of a difficult intubation. There was also some difficulty inflating the cuff fully when withdrawn from the right main bronchus, as per the chest xray, and was returned to the initial depth of 23cm. The case was discussed with cardiology, and a CTA of the chest was performed enroute to the [employer] and given aspirin, Brilinta, heparin bolus, and 1 L bolus. Catheterization revealed essentially normal coronary arteries with preserved ejection fraction. Laboratory results showed normal CBC, normal electrolytes, and elevated BUN/creatinine at 35 and 1.27. Glucose was also elevated at 297. The patient was admitted to the intensive care unit for further work-up and management. [facility] Medical History GERD (gastroesophageal reflux disease) HTN (hypertension) Hyperlipidemia Obesity (BMI 30-39.9) Allergy/AdvReac Type Severity Reaction Status Date / Time No Known Allergies Allergy Verified 08/24/21 12:12 Family History Father Diabetes Mother Congestive heart disease Brother Diabetes Hypertension Sister Hypertension Family History unable to obtain unable to obtain Surgical History History of arthroscopic knee surgery History of carpal tunnel release History of toe surgery Surgical History unable to obtain unable to obtain Social History household members: none housing: house Smoking Status: Never smoker alcohol intake: current alcohol intake frequency: holidays/special occasions only substance use type: does not use ROS Review of Systems ROS Unobtainable: due to endotracheal tube and due to mental status Vital Signs Vital Signs Vital Signs: 08/24/21 11:47 08/24/21 11:51 08/24/21 11:58 Temperature 97.6 F L Temperature Source Temporal Pulse Rate 98 97 Respiratory Rate 16 18 18 Respiratory Depth Respiratory Pattern Blood Pressure 116/66 116/66 128/68 H Blood Pressure Mean 82 88 Pulse Ox 99 85 Oxygen Delivery Method Room Air Room Air Fraction of Inspired Oxygen (FIO2) 08/24/21 12:00 08/24/21 12:04 08/24/21 12:15 Temperature 98.3 F Temperature Source Core Pulse Rate 93 Respiratory Rate 14 Respiratory Depth Normal Respiratory Pattern Normal Blood Pressure 113/69 Blood Pressure Mean 83 Pulse Ox 88 94 98 Oxygen Delivery Method Mechanical Ventilator Mechanical Ventilator Mechanical Ventilator Fraction of Inspired Oxygen (FIO2) 100 08/24/21 12:18 08/24/21 12:53 08/24/21 11:54 Temperature 98.5 F Temperature Source Core Pulse Rate 104 H 97 Respiratory Rate 14 18 Respiratory Depth Respiratory Pattern Normal Blood Pressure 113/69 Blood Pressure Mean 83 Pulse Ox 98 95 Oxygen Delivery Method Room Air Fraction of Inspired Oxygen (FIO2) 100 65 08/24/21 12:00 08/24/21 13:55 08/24/21 12:25 Temperature Temperature Source Pulse Rate 89 Respiratory Rate Respiratory Depth Respiratory Pattern Blood Pressure Blood Pressure Mean Pulse Ox 87 98 Oxygen Delivery Method Fraction of Inspired Oxygen (FIO2) 100 60 Weight Weight: 109.9 kg Body Mass Index (BMI) 36.8 Physical Exam Const well nourished Constitutional Narrative: Older obese white female lying in bed currently intubated, responsive to noxious stimuli i.e. suctioning with movement of bilateral upper extremities but no spontaneous eye opening or meaningful interaction HEENT normocephalic, head/scalp atraumatic and moist oral mucous membranes HEENT Narrative: ET tube present and secured Eyes conjunctivae normal Eyes Narrative: Pupils are 2 mm and reactive to light bilaterally. No scleral icterus. Significant eye watering Neck no lymphadenopathy and supple Resp no retractions, no use of accessory muscles and clear to auscultation bilaterally Effort and Inspection: symmetric chest movement and mechanically ventilated Cardio regular rate, regular rhythm, S1 normal heart sound, S2 normal heart sound, no murmurs, no rub, no gallops and no clicks GI normal to inspection, nondistended, normoactive bowel sounds, soft to palpation, non-tender and non-distended Extremity normal to inspection and no clubbing, cyanosis or edema Extremity Narrative: 2+ pulses upper and lower extremities Skin no rashes or lesions noted, no wounds, skin turgor normal, no jaundice, no petechiae and no mottling Neuro moves all extremities and deep tendon reflexes 2+ bilaterally Neuro Narrative: Patient spontaneously moves all 4 extremities with suctioning and adjustment of the ET tube but no purposeful or meaningful interaction Motor Exam: no fasciculations and clonus absent Comatose: response to noxious stimuli present Results Lab / Micro Data Result Diagrams: 08/24/21 12:00 08/24/21 12:00 Labs: Laboratory Results - last 24 hr 08/24/21 12:00: WBC 11.4 H, RBC 4.22, Hgb 12.9, Hct 38.7, MCV 91.7, MCH 30.6, MCHC 33.3, RDW Std Deviation 42.6, RDW Coeff of Dougie 12.7, Plt Count 252, MPV 11.3, Immature Gran % (Auto) 4.900 H, Neut % (Auto) 58.6, Lymph % (Auto) 26.9, [place] % (Auto) 7.4, Eos % (Auto) 1.7, Baso % (Auto) 0.5, Absolute Neuts (auto) 6.7, Absolute Lymphs (auto) 3.06, Nucleated RBC % 0 08/24/21 12:00: Sodium 139, Potassium 4.1, Chloride 108 H, Carbon Dioxide 18.0 L, Anion Gap 13, BUN 35 H, Creatinine 1.27 H, Estim Creat Clear Calc 42.17, Est GFR (MDRD) Af Amer 54 L, Est GFR (MDRD) Non-Af 44 L, BUN/Creatinine Ratio 27.6 H, Glucose 297 H, Calcium 8.9, Magnesium 2.1, Troponin I High Sens 283 H*, TSH 5.95 H 08/24/21 12:00: PT 15.3 H, INR 1.2, APTT 65.1 H Radiology Impression Chest X-Ray 08/24/21 11:56 IMPRESSION: Right mainstem intubation; recommend 6 cm retraction. Satisfactory appearance of nasogastric tube. Low lung volumes with left greater than right atelectasis or pneumonia. Electronically Signed: Staci Jensen MD at 13:01 EDT , ADDENDUM: 08/24/21 1324 IMPRESSION: Right mainstem intubation; recommend 6 cm retraction. Satisfactory appearance of nasogastric tube. Low lung volumes with left greater than right atelectasis or pneumonia. N.B. : Suresh Barriga MD, confirmed on 08/24/2021 13:17:20 (ET) that the healthcare facility has received the radiology report. Electronically Signed: Staci Jensen MD at 13:01 EDT , Brain CT 08/24/21 12:02 IMPRESSION: Chronic involutional changes of the brain. Electronically Signed: Roxane Lezama MD at 13:21 EDT , Chest CTA 08/24/21 12:02 IMPRESSION: No demonstrated pulmonary embolism or arterial dissection. Endotracheal tube with in the right mainstem bronchus, recommend retraction by 5 cm. Bilateral dependent consolidation, most pronounced within the left lower lobe. Atherosclerosis. Electronically Signed: Roxane Lezama MD at 13:27 EDT , ADDENDUM: 08/24/21 1409 IMPRESSION: undefined Chest X-Ray 08/24/21 12:15 IMPRESSION: Endotracheal tube within the right mainstem bronchus, recommend retraction of 4-5 cm. Patchy opacity within the left lower lung may be secondary to underlying atelectasis and/or pneumonia. Electronically Signed: Roxane Lezama MD at 13:29 EDT , Assessment & Plan Assessment/Plan (1) Cardiopulmonary arrest: (2) Respiratory failure: (3) Elevated troponin: (4) Elevated serum creatinine: (5) Hyperglycemia: (6) Rib fractures: PLAN: Plan Dr. Milian CPA -Estimated CPR time at least 15 minutes after EMS arrival -Uncertain downtime prior -Etiology uncertain at this time given negative work-up thus far -Check echocardiogram -Check EEG -Will consider further brain imaging depending on response -Check for infectious etiologies -Check procalcitonin -We will hold on empiric antibiotics at this time -Tox screen is overall unimpressive however she did have benzodiazepines on her talk screen and we are unclear where these came from -Cardiac catheterization unremarkable -Consult ICU medicine Acute hypoxic respiratory failure secondary to CPA -Maintain ventilation -Initial ABG showed respiratory acidosis and ventilator changes were made with noted correction on repeat ABG -Repeat ABG in a.m. -Check a.m. chest x-ray -Propofol and fentanyl for sedation -Patient with a ET tube in place however unable to inflate cuff but obtaining adequate volumes on the ventilator -Critical care medicine consulted Rib fractures -Likely related to CPR -Patient on sedation with fentanyl and propofol at this time -We will have to further evaluate once patient is more awake Troponin elevation -Likely related to defibrillation efforts -No reason for further cycle -Cardiac cath was unremarkable Transaminitis -Could be related to arrest however patient does also have fatty liver at baseline -We will trend Hyperglycemia -blood sugar was 297 on arrival -A1c was obtained and found to be 5.8 -We will utilize sliding scale insulin every 6 hours -Accu-Cheks every 6 hours -May be able to discontinue insulin and Accu-Cheks if blood sugars normalize Hypertension -Patient takes atenolol 50 mg at baseline -Hold antihypertensives at this time -As needed medications available GERD -Patient on omeprazole 20 mg at home -We will continue on Protonix 40 mg here Hyperlipidemia -Patient on simvastatin 40 mg at baseline -Continue to hold Obesity -BMI 36.8 -Complicates treatment, prognosis, outcomes -Recommend weight loss DVT prophylaxis -Lovenox subcu daily -SCDs CODE STATUS -Full code [employer] Student Cardiopulmonary arrest ? Estimated CPR time of 15 minutes ? Uncertain etiology, given negative heart cath, head CT, chest CTA, and blood work thus far ? Check echo ? Blood cultures to investigate infectious cause ? Check EEG ? Tox screen, phos, mag, procalcitonin pending ? TSH elevated at 5.95 ? Consult motion study engineer ? Trend CMP, CBC ? Maintain core temperature monitoring Respiratory failure ? Patient remains nonresponsive without spontaneous respirations following ROSC ? Maintain ET tube/OG tube ? Vent settings with tidal volume of 400 ml, per ideal body weight ? ABG shows respiratory acidosis with pH of 7.22 and PaCO2 at 55.9, respirations set to 17 ? Propofol and fentanyl drip for sedation ? Reduce FiO2 as tolerated to keep Spo2 94-99% ? Trend ABGs ? COVID-negative, sputum culture pending Elevated troponin ? Troponin on arrival to 83-->2107 ? Cardiac catheterization revealed no significant disease in left main and less than 30% luminal irregularities in the LAD, circumflex, and RCA with estimated EF of 60% ? Trend serial cardiac enzymes Elevated serum creatinine ? Creatinine 1.27 ? Unsure patient baseline ? Trend BMP ? Gentle hydration with 0.9 normal saline at 70 mL an hour Transaminitis ? Unclear etiology, possibly secondary to cardiopulmonary arrest ? Trend CMP Rib fractures ? Nondisplaced anterior and lateral, as per chest CTA ? Secondary to CPR Hyperglycemia ? Glucose 297 on arrival ? Per family, not diabetic, despite strong family history, likely reactive ? Hemoglobin A1c 5.8 ? Insulin lispro per sliding scale protocol every 6 hours History of hypertension ? Holding home atenolol, per prescription last filled May 2021 ? Hydralazine 10 mg IV as needed 6 hours for systolic blood pressure greater than 160 History of hyperlipidemia ? Holding home simvastatin, per prescription last filled May 2021 History of GERD ? Holding home omeprazole, per prescription last filled June 2021 ? Pantoprazole 40 mg IV daily DVT prophylaxis ? Enoxaparin 40 mg subcu daily ? SCDs CODE STATUS ? Full code Charges/Coding Visit Charges Inpatient E&M: 35693 Init Hosp L3 Documented by User: CHARLEE LAGUNAS 08/24/21 17:37 HPI - General General Date of Admission: 08/24/21 HPI Narrative AYESHA OTTO, is a 71 F who presents to the [facility] emergency department following cardiopulmonary arrest. Per patient's brother, he and the patient have been working to replace [employer] boards yesterday and today. Yesterday, the patient complained of not feeling well. The patient arrived to her brother's house today at approximately 10 AM and reported to have had difficulty sleeping last night with chest pain. However, the patient woke up this morning, ate something, and was then able to get some sleep. The patient then went outside and began using the drill to remove deck screws. The brother states she had been outside just long enough to remove maybe 6 screws and he found her lying on the deck, eyes open, and foaming at the mouth. The brother then called the neighbor who responded and began CPR. EMS arrived and found the patient in fine V. fib and then coarse V. fib.? She was shocked approximately 4-5 times and about 3 doses of epinephrine.? They got return of spontaneous circulation.? Initial heart rate was 140s or 150s.? I gel was placed.?Her EKG was transmitted initially and showed sinus tachycardia and initially was thought to be a STEMI, and a STEMI alert was called [employer]ED [employer] AND EMBAL[employer]. On arrival, EMS estimated CPR time to be approximately 15 minutes. The patient's initial vital signs on arrival to the emergency department were temperature of 97.6, heart rate 98, blood pressure 116/66, respiratory rate of 16, and oxygen saturation of 99% on room air. Her repeat EKG demonstrated sinus rhythm with no acute changes. The patient remained unresponsive however and was intubated. Per the emergency physician, the patient was somewhat of a difficult intubation. There was also some difficulty inflating the cuff fully when withdrawn from the right main bronchus, as per the chest xray, and was returned to the initial depth of 23cm. The case was discussed with cardiology, and a CTA of the chest was performed enroute to the [employer] and given aspirin, Brilinta, heparin bolus, and 1 L bolus. Catheterization revealed essentially normal coronary arteries with preserved ejection fraction. Laboratory results showed normal CBC, normal electrolytes, and elevated BUN/creatinine at 35 and 1.27. Glucose was also elevated at 297. The patient was admitted to the intensive care unit for further work-up and management. [facility] Medical History GERD (gastroesophageal reflux disease) HTN (hypertension) Hyperlipidemia Obesity (BMI 30-39.9) Allergy/AdvReac Type Severity Reaction Status Date / Time No Known Allergies Allergy Verified 08/24/21 12:12 Family History Father Diabetes Mother Congestive heart disease Brother Diabetes Hypertension Sister Hypertension Family History unable to obtain Surgical History History of arthroscopic knee surgery History of carpal tunnel release History of toe surgery Surgical History unable to obtain Social History household members: none housing: house Smoking Status: Never smoker alcohol intake: current alcohol intake frequency: holidays/special occasions only substance use type: does not use Physical Exam Const well nourished Constitutional Narrative: Older, obese, white female intubated. HEENT normocephalic, head/scalp atraumatic and moist oral mucous membranes HEENT Narrative: ET tube present and secured. Eyes conjunctivae normal Eyes Narrative: Pupils are 2 mm and reactive to light bilaterally. No scleral icterus. Neck Neck Narrative: Short, thick neck. Trachea midline. Resp no retractions, no use of accessory muscles and clear to auscultation bilaterally Effort and Inspection: symmetric chest movement and mechanically ventilated Auscultation: Negative for crackles, rales, rhonchi or wheezes Cardio regular rate, regular rhythm, S1 normal heart sound, S2 normal heart sound, no murmurs, no rub, no gallops and no clicks GI normal to inspection, nondistended, normoactive bowel sounds, soft to palpation, non-tender and non-distended Palpation: Negative for tender, guarding or hernia Extremity normal to inspection and no clubbing, cyanosis or edema Skin no rashes or lesions noted, no wounds, skin turgor normal, no jaundice, no petechiae and no mottling Neuro moves all extremities Neuro Narrative: Patient is coughing and attempting to move upper extremities towards ET tube. Motor Exam: no tremor, no fasciculations and clonus absent Comatose: response to noxious stimuli present Pupil Exam: Normal Pupillary Reactivity/Response: bilateral and Mid Position: bilateral Right Pupil Size (mm): 2 Left Pupil Size (mm): 2 Psych Psych Narrative: Patient is nonresponsive. Results Lab / Micro Data Attestation: I reviewed the patient's lab results. Result Diagrams: 08/24/21 12:00 08/24/21 12:00 Assessment & Plan Assessment/Plan (1) Cardiopulmonary arrest: (2) Respiratory failure: (3) Elevated troponin: (4) Elevated serum creatinine: (5) Hyperglycemia: (6) Rib fractures: PLAN: Plan Dr. Milian [employer] HOME INST[employer] Student Cardiopulmonary arrest ? Estimated CPR time of 15 minutes ? Uncertain etiology, given negative heart cath, head CT, chest CTA, and blood work thus far ? Check echo ? Blood cultures to investigate infectious cause ? Check EEG ? Tox screen, phos, mag, procalcitonin pending ? TSH elevated at 5.95 ? Consult motion study engineer ? Trend CMP, CBC ? Maintain core temperature monitoring Respiratory failure ? Patient remains nonresponsive without spontaneous respirations following ROSC ? Maintain ET tube/OG tube ? Vent settings with tidal volume of 400 ml, per ideal body weight ? ABG shows respiratory acidosis with pH of 7.22 and PaCO2 at 55.9, respirations set to 17 ? Propofol and fentanyl drip for sedation ? Reduce FiO2 as tolerated to keep Spo2 94-99% ? Trend ABGs ? COVID-negative, sputum culture pending Elevated troponin ? Troponin on arrival to 83-->2106 ? Cardiac catheterization revealed no significant disease in left main and less than 30% luminal irregularities in the LAD, circumflex, and RCA with estimated EF of 60% ? Trend serial cardiac enzymes Elevated serum creatinine ? Creatinine 1.27 ? Unsure patient baseline ? Trend BMP ? Gentle hydration with 0.9 normal saline at 70 mL an hour Transaminitis ? Unclear etiology, possibly secondary to cardiopulmonary arrest ? Trend CMP Rib fractures ? Nondisplaced anterior and lateral, as per chest CTA ? Secondary to CPR Hyperglycemia ? Glucose 297 on arrival ? Per family, not diabetic, despite strong family history, likely reactive ? Hemoglobin A1c 5.8 ? Insulin lispro per sliding scale protocol every 6 hours History of hypertension ? Holding home atenolol, per prescription last filled May 2021 ? Hydralazine 10 mg IV as needed 6 hours for systolic blood pressure greater than 160 History of hyperlipidemia ? Holding home simvastatin, per prescription last filled May 2021 History of GERD ? Holding home omeprazole, per prescription last filled June 2021 ? Pantoprazole 40 mg IV daily DVT prophylaxis ? Enoxaparin 40 mg subcu daily ? SCDs CODE STATUS ? Full code
[2021-08-24 14:19] LABS: Reflex Troponin-HS? (from REC) Y
[2021-08-24 14:21] LABS: Allen Test Positive; Base Excess -5 mmol/L (-2 to +2); Bicarbonate 22.8 mmol/L (22-26); Blood Gas Specimen Type ART; FI02 60; Mode AC; O2 Delivery Device Adult Vent; PEEP 5; PO2 118 mmHG (75-100); RR 14; SITE L Radial; SO2 98 % (95-99); Total Carbon Dioxide 25 mmol/L; Vt 400; pCO2 55.9 mmHg (35-45); pH 7.22 (7.35-7.45)
[2021-08-24 15:17] LABS: Bacteria 0 SEEN /hpf (None Seen); Mucous, Urine 0 SEEN /hpf (<or=2+); Squamous Epithelial Cells - UA 0 SEEN /hpf (5-10)
--- NOTE | 2021-08-24 15:21 | CPS ---
Addendum entered and electronically signed by Jose Rueda 08/24/21 15:29: @12:10 Original Note: Dr. Prince wanted the ET tube pulled back from 23 centimeters at the lip to 22 centimeters at the lip in ER initially after x-ray confirming tube placement was done. After doing so, re-inflating the cuff caused the packing machine pilot can router balloon to over distend. The tube was placed back at the original placement at 23 centimeters @ the lips.
[2021-08-24 15:26] LABS: Hemoglobin A1c 5.8 % (3.8-5.6)
[2021-08-24 15:43] LABS: AST(SGOT) 121 U/L (15-37); Alanine Aminotransfer ALT/SGPT 107 U/L (13-56); Albumin, Serum 3.3 g/dL (3.2-5.0); Alkaline Phosphatase 83 U/L (45-117); Bilirubin, Direct 0.11 mg/dL (0.00-0.30); Globulin 3.1 g/dL (2.2-4.2); Protein, Total 6.4 g/dL (6.4-8.2); Troponin-I HS 2107 pg/mL (3.0-54.0)
[2021-08-24 15:44] LABS: CPK Total, Creatine Kinase 264 U/L (26-192); Triglycerides 67 mg/dL
[2021-08-24 15:50] LABS: Alcohol, Blood (Medical)-Serum < 3.0 mg/dL
[2021-08-24 16:05] LABS: Color, Urine Yellow (Yellow); Glucose, Dipstick Normal (Normal); Ketone-Dipstick Negative (Negative); Leukocyte Esterase-Dipstick Negative /ul (Negative); Nitrite-Dipstick Negative (Negative); Occult Blood-Urine 50 /ul (Negative); Protein-Dipstick 30 mg/dl (Negative); Urine Bilirubin Dipstick Negative (Negative); Urine Clarity Clear (Clear); Urine Urobilinogen Normal (Normal); Urine pH 6.5 (5.0 - 8.0)
[2021-08-24 16:16] LABS: Red Blood Cells-Urine 0-5 SEEN /hpf (0-5); White Blood Cells 0-5 SEEN /hpf (0-5)
--- NOTE | 2021-08-24 17:02 | TELEMED_ITS ---
[facility] has confirmed receipt of a request for visit. This document confirms receipt of the order initiating the consult. To find the results of the consultation, please view the patient's reports for the scanned Telemed Consult.
[2021-08-24 17:30] LABS: Allen Test Positive; Base Excess -5 mmol/L (-2 to +2); Blood Gas Specimen Type ART; FI02 40; Mode AC; O2 Delivery Device AeroMask; PEEP 5; PO2 77 mmHG (75-100); RR 18; SITE R Brach; SO2 95 % (95-99); Total Carbon Dioxide 21 mmol/L; Vt 400; pCO2 34.8 mmHg (35-45); pH 7.37 (7.35-7.45)
[2021-08-24 17:45] LABS: Amphetamine Urine VISTA NEGATIVE (<1000 ng/mL); Barbiturate Urine VISTA NEGATIVE (< 200 ng/mL); Benzodiazepine Urine VISTA POSITIVE (< 200 ng/mL); Cocaine Urine VISTA NEGATIVE (< 300 ng/mL); Ecstacy Urine VISTA NEGATIVE (< 500 ng/mL); Methadone Urine VISTA NEGATIVE (< 300 ng/mL); PCP Urine VISTA NEGATIVE (< 25 ng/mL); THC Urine VISTA NEGATIVE (< 50 ng/mL); Vista UDS pH Range 5
[2021-08-24 18:48] LABS: Procalcitonin 0.98 ng/mL (0.00-0.09)
[2021-08-24 19:46] LABS: Bedside Glucose 199 mg/dL (74-106)
[2021-08-24] MEDS: 0.9% Saline Lock 10 ML Syringe IV (20:30)
[2021-08-24] MEDS: Chlorhexidine 15 ML PO (20:30)
[2021-08-24] MEDS: levETIRAcetam IV 1,000 MG/100 ML BAG 400 MG IV (20:30)
[2021-08-24] MEDS: CHLORHEXIDINE GLUC 2% CLOTH 1 EACH TOWELETTE TOPICAL (22:00)
[2021-08-24] MEDS: Insulin Lispro 100 UNIT/ML INSULN.PEN SC (23:40)
[2021-08-24 23:56] LABS: Bedside Glucose 206 mg/dL (74-106)
[2021-08-25] VITALS (36 sets, daily range): BP systolic 98–165; BP diastolic 44–102; PULSE 72–84; RESP 18–26; TEMP 36.9–38; O2SAT 92–99
[2021-08-25] MEDS: Propofol 10MG/Ml 1,000 MG/100 ML Bottle 19.8 MG CONT INF (01:02)
[2021-08-25 03:04] LABS: Absolute Lymphocyte Count 0.46 X10^3/uL (0.83-4.51); Absolute Neutrophil Count 11.5 X10^3/uL (2.0-7.7); Basophil# 0.01 X10^3/uL; Basophil% 0.1 % (0-1); Hematocrit 34.3 % (37-47); Hemoglobin 11.4 g/dL (12.0-15.0); Lymphocyte # 0.46 X10^3/ul (0.83-4.51); Lymphocyte % 3.6 % (19-41); Mean Corp Hgb Conc 33.2 g/dL (32-36); Mean Corpuscular Hgb 30.6 pg (27.0-32.0); Mean Platelet Vol. 10.8 fl (6.2-12.0); Monocyte# 0.65 X10^3/uL; Monocyte% 5.1 % (0-10); NRBC Flagged by Analyzer 0 % (0-5); Neutrophil # 11.52 X10^3/uL (2.7-7.7); Neutrophil % 90.6 % (47-70); POSITIVE DIFFERENTIAL YES; Platelet Count 177 K/mm3 (150-450); RBC Distribution Width CV 13.2 % (11.6-14.6); RBC Distribution Width SD 43.9 fl (35.1-43.9); Red Blood Count 3.73 M/mm3 (4.2-5.4); White Blood Count 12.7 K/mm3 (4.4-11.0)
[2021-08-25 03:10] LABS: Differential Indicated SCAN CRITERIA MET
[2021-08-25 03:42] LABS: AST(SGOT) 81 U/L (15-37); Alanine Aminotransfer ALT/SGPT 83 U/L (13-56); Albumin, Serum 2.9 g/dL (3.2-5.0); Alkaline Phosphatase 66 U/L (45-117); Anion Gap 8 (5-15); BUN 36 mg/dL (7-18); BUN/Creat Ratio 31.6 RATIO (10-20); Calcium,Total 8.4 mg/dL (8.5-10.1); Chloride 114 mmol/L (98-107); Creatinine, Serum 1.14 mg/dL (0.55-1.02); EST Glomerular Filtration Rate 50 mL/min (>60); Est Glom Filt Rate - Afr Amer 61 mL/min (>60); Globulin 2.9 g/dL (2.2-4.2); Glucose 157 mg/dL (74-106); Protein, Total 5.8 g/dL (6.4-8.2); Sodium Level 143 mmol/L (136-145); Thyroid Stim Hormone (TSH) 0.68 uIU/mL (0.358-3.74)
[2021-08-25 03:46] LABS: Differential Comment SCANNED
[2021-08-25] MEDS: TITRATION PARAMETER CHANGE 1 EACH IV (05:10)
--- NOTE | 2021-08-25 05:15 | CON.PCM.CC_ITS ---
Assessment & Plan Assessment/Plan (1) Respiratory failure: (2) Cardiopulmonary arrest: PLAN: Plan RECOMMENDATIONS: 1. Continue assist-control mode mechanical ventilation. Wean FiO2 for saturations greater than 90%. 2. Limit sedation as tolerated. 3. Continue Keppra as ordered. 4. Await EEG read. 5. Obtain neurology consultation. 6. Await results of echocardiogram. 7. Continue appropriate ICU prophylaxis. 8. Tube feeds can be initiated today from my perspective. IMPRESSIONS: 1. Acute hypoxemic respiratory failure in the setting of out of hospital cardiac arrest Unclear precipitating etiology. Both cardiac catheterization and CTA chest were unrevealing. ABG is appropriate at this time. Plan to continue assist-control mode of mechanical ventilation and wean FiO2 for saturations greater than 90%. I would recommend limiting sedation as tolerated to best assess the patient's underlying neurologic status. The patient does appear to have infiltrates on her chest imaging. While the findings could be related to the CPR that she received, I am also going to place her empirically on antimicrobials. Cultures are pending. Awaiting results of echocardiogram. 2. Questionable anoxic brain injury The patient is demonstrating myoclonic jerking on examination. However, she does initiate spontaneous breaths and does appear to respond to noxious stimulation. Accordingly, EEG has been completed. The read is currently pending. Recommend obtaining neurology consultation. In the interim, attempt to limit sedation as tolerated. Continue Keppra as ordered. 3. Mild transaminitis/hypertension/GERD/hyperlipidemia/obesity Complicates care, management, recovery and prognosis. Continue supportive measures as noted above. TIME: 40 minutes of critical care time, independent of procedures, was spent ad dressing the patient's acute hypoxemic respiratory failure, out of hospital V. fib cardiac arrest, questionable anoxic brain injury, review of all data and collaboration with the care team. HPI Consult Data Date of Consult: 08/25/21 HPI Narrative Reason for Consultation: Acute respiratory failure HPI Narrative: The patient is a 71-year-old female, with a history as outlined below, who presented to the emergency department on August 24 after experiencing an [id number] cardiac arrest. The patient was found to be in ventricular fibrillation and received ACLS. The patient was apparently working outside on her brother's house when she was found unresponsive. Bystander CPR was initially initiated. The patient was shocked approximately 4-5 times by EMS and received several rounds of epinephrine. ROSC was subsequently achieved. On presentation to the emergency department, the patient was noted to be afebrile and hemodynamically stable. Initial laboratory evaluation revealed a white blood cell count of 11,000. Chemistry profile was notable for a bicarbonate of 18 and creatinine of 1.27. AST and ALT were mildly elevated at 121 and 107, respectively. Troponins were increased to 2107. Urinalysis was unremarkable. Toxicology screen was positive for opiates and benzodiazepines. The patient was ultimately intubated and taken to the cardiac catheterization lab. Cardiac catheterization demonstrated nonobstructive coronary disease with normal LV size, wall motion and systolic function. Subsequent head CT revealed chronic involutional changes of the brain. CTA chest demonstrated right mainstem intubation with normal enhancement of the pulmonary arteries. There is incidental note of dependent consolidation in the upper and lower lobes. Multiple rib fractures were also noted. Post work-up, the patient was transferred to the medical intensive care unit. The patient has been experiencing upper extremity along with facial myoclonic jerking, for which she was placed on Keppra overnight. [facility] Medical History GERD (gastroesophageal reflux disease) HTN (hypertension) Hyperlipidemia Obesity (BMI 30-39.9) Allergy/AdvReac Type Severity Reaction Status Date / Time No Known Allergies Allergy Verified 08/24/21 12:12 Family History Father Diabetes Mother Congestive heart disease Brother Diabetes Hypertension Sister Hypertension Family History unable to obtain Surgical History History of arthroscopic knee surgery History of carpal tunnel release History of toe surgery Surgical History unable to obtain Social History household members: none housing: house Smoking Status: Never smoker alcohol intake: current alcohol intake frequency: holidays/special occasions only substance use type: does not use ROS Review of Systems ROS Unobtainable: due to endotracheal tube and due to mental status Physical Exam Const Constitutional Narrative: The patient has myoclonic jerking of her upper extremities and facial/cervical regions. General Appearance: intubated and patient mechanically ventilated Nutritional Appearance: obese HEENT normocephalic and head/scalp atraumatic Mouth: endotracheal tube in place and OG tube in place Eyes PERRL and conjunctivae normal Neck supple General: trachea midline Chest inspection of chest normal Resp normal respiratory effort Auscultation: Negative for rales, rhonchi or wheezes Cardio regular rate and regular rhythm GI normal to inspection, nondistended, normoactive bowel sounds Extremity no clubbing, cyanosis or edema Skin no rashes or lesions noted Neuro Neuro Narrative: The patient does initiate small tidal volume breaths on spontaneous mode mechanical ventilation. She does demonstrate facial grimacing and appears uncomfortable with noxious stimulation and suctioning. Lab / Micro Data Result Diagrams: 08/25/21 02:55 08/25/21 02:55 Labs: Laboratory Results - last 24 hr 08/24/21 12:00: WBC 11.4 H, RBC 4.22, Hgb 12.9, Hct 38.7, MCV 91.7, MCH 30.6, MCHC 33.3, RDW Std Deviation 42.6, RDW Coeff of Dougie 12.7, Plt Count 252, MPV 11.3, Immature Gran % (Auto) 4.900 H, Neut % (Auto) 58.6, Lymph % (Auto) 26.9, [place] % (Auto) 7.4, Eos % (Auto) 1.7, Baso % (Auto) 0.5, Absolute Neuts (auto) 6.7, Absolute Lymphs (auto) 3.06, Nucleated RBC % 0 08/24/21 12:00: Sodium 139, Potassium 4.1, Chloride 108 H, Carbon Dioxide 18.0 L , Anion Gap 13, BUN 35 H, Creatinine 1.27 H, Estim Creat Clear Calc 42.17, Est GFR (MDRD) Af Amer 54 L, Est GFR (MDRD) Non-Af 44 L, BUN/Creatinine Ratio 27.6 H , Glucose 297 H, Calcium 8.9, Magnesium 2.1, Troponin I High Sens 283 H*, TSH 5.95 H 08/24/21 12:00: PT 15.3 H, INR 1.2, APTT 65.1 H 08/24/21 12:00: Ethyl Alcohol < 3.0 08/24/21 14:45: Total Bilirubin 0.40, Direct Bilirubin 0.11, AST 121 H, ALT 107 H, Alkaline Phosphatase 83, Troponin I High Sens 2107 H*, Total Protein 6.4, Albumin 3.3, Globulin 3.1 08/24/21 14:45: Hemoglobin A1c 5.8 H 08/24/21 14:45: Total Creatine Kinase 264 H, Triglycerides 67 08/24/21 15:08: Urine Color Yellow, Urine Clarity Clear, Urine pH 6.5, Ur Speci fic [place] 1.010, Urine Protein 30 H, Urine Glucose (UA) Normal, Urine Ketones Negative, Urine Occult Blood 50 H, Urine Nitrite Negative, Urine Bilirubin Negative, Urine Urobilinogen Normal, Ur Leukocyte Esterase Negative, Urine RBC 0-5 SEEN, Urine WBC 0-5 SEEN, Ur Squamous Epith Cells 0 SEEN, Urine Bacteria 0 SEEN, Urine Mucus 0 SEEN 08/24/21 17:15: Urine Opiates Screen POSITIVE H, Urine Methadone Screen NEGATIVE, Ur Barbiturates Screen NEGATIVE, Ur Phencyclidine Scrn NEGATIVE, Ur Amphetamines Screen NEGATIVE, MDMA (Ecstasy) Screen NEGATIVE, U Benzodiazepines Scrn POSITIVE H, Urine Cocaine Screen NEGATIVE, U Cannabinoids Screen NEGATIVE, Ur Drug Screen Comment 08/24/21 18:00: Procalcitonin 0.98 H 08/24/21 18:00: Ammonia 36.0 H 08/24/21 19:26: POC Glucose 199 H 08/24/21 23:37: POC Glucose 206 H 08/25/21 02:55: WBC 12.7 H, RBC 3.73 L, Hgb 11.4 L, Hct 34.3 L, MCV 92.0, MCH 30.6, MCHC 33.2, RDW Std Deviation 43.9, RDW Coeff of Dougie 13.2, Plt Count 177, MPV 10.8, Immature Gran % (Auto) 0.600, Neut % (Auto) 90.6 H, Lymph % (Auto) 3.6 L, [place] % (Auto) 5.1, Eos % (Auto) 0.0, Baso % (Auto) 0.1, Absolute Neuts (auto) 11.5 H, Absolute Lymphs (auto) 0.46 L, Nucleated RBC % 0, Differential Comment SCANNED 08/25/21 02:55: Sodium 143, Potassium 4.0, Chloride 114 H, Carbon Dioxide 21.0, Anion Gap 8, BUN 36 H, Creatinine 1.14 H, Estim Creat Clear Calc 80.80, Est GFR (MDRD) Af Amer 61, Est GFR (MDRD) Non-Af 50 L, BUN/Creatinine Ratio 31.6 H, Glucose 157 H, Calcium 8.4 L, Magnesium 2.0, Total Bilirubin 0.40, AST 81 H, ALT 83 H, Alkaline Phosphatase 66, Total Protein 5.8 L, Albumin 2.9 L, Globulin 2.9, Albumin/Globulin Ratio 1.0, TSH 0.68 Micro: Microbiology 08/24/21 15:55 Nasal Secretion SARS-CoV-2 Antigen (Rapid) - Final ABG Data ABG results: ABG 08/24/21 08/24/21 14:12 17:27 Specimen Type ART ART Sample Site L Radial R Brach pH 7.22 L 7.37 Bicarbonate Actual 22.8 20.0 L Total CO2 25 21 Base Excess -5 L -5 L O2 Saturation 98 95 O2 % 60 40 ABG pCO2 55.9 H 34.8 L ABG pO2 118 H 77 [place] Test Positive Positive Respiration Rate 14 18 O2 Delivery Device Adult Vent AeroMask Vent Mode AC AC Tidal Volume 400 400 POC PEEP 5 5 Radiology Impression Chest X-Ray 08/24/21 11:56 IMPRESSION: Right mainstem intubation; recommend 6 cm retraction. Satisfactory appearance of nasogastric tube. Low lung volumes with left greater than right atelectasis or pneumonia. Electronically Signed: Staci Jensen MD at 13:01 EDT Reading Location ID and State: [facility] / [place] Tel , Service support , ADDENDUM: 08/24/21 1324 IMPRESSION: Right mainstem intubation; recommend 6 cm retraction. Satisfactory appearance of nasogastric tube. Low lung volumes with left greater than right atelectasis or pneumonia. N.B. : Suresh Barriga MD, confirmed on 08/24/2021 13:17:20 (ET) that the healthcare facility has received the radiology report. Electronically Signed: Staci Jensen MD at 13:01 EDT , Brain CT 08/24/21 12:02 IMPRESSION: Chronic involutional changes of the brain. Electronically Signed: Roxane Lezama MD at 13:21 EDT , Chest CTA 08/24/21 12:02 IMPRESSION: No demonstrated pulmonary embolism or arterial dissection. Endotracheal tube with in the right mainstem bronchus, recommend retraction by 5 cm. Bilateral dependent consolidation, most pronounced within the left lower lobe. Atherosclerosis. Electronically Signed: Roxane Lezama MD at 13:27 EDT , ADDENDUM: 08/24/21 1409 IMPRESSION: undefined Chest X-Ray 08/24/21 12:15 IMPRESSION: Endotracheal tube within the right mainstem bronchus, recommend retraction of 4-5 cm. Patchy opacity within the left lower lung may be secondary to underlying atelectasis and/or pneumonia. Electronically Signed: Roxane Lezama MD at 13:29 EDT , Charges/Coding Procedures Hospitalists Procedures: [address] [facility] Care 1st Hr
[2021-08-25] MEDS: Propofol 10MG/Ml 1,000 MG/100 ML Bottle 14.7 MG CONT INF ×3 (05:52→17:33)
--- NOTE | 2021-08-25 06:05 | RAD_ITS ---
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 Esophagogastric tube extends the left upper abdomen. Lungs are underexpanded with atelectasis in the retrocardiac left lower lobe. No cavitating process. Slight blunting of the left costophrenic angle. Normal size heart. Normal mediastinum and loco. Normal visualized pulmonary arteries. There is atherosclerotic calcification of the aortic arch with tortuosity. No acute bony process. There is no demonstrated abnormality of the visualized soft tissue structures of the upper abdomen. RAD/Chest 1 View (Portable) IMPRESSION: Left lower lobe atelectasis with trace left pleural effusion. Endotracheal tube terminates 4.4 cm above the falguni. Electronically Signed: Fred Landis MD ([place]) at 10:44 EDT ,
[2021-08-25 06:16] LABS: Bedside Glucose 125 mg/dL (74-106)
--- NOTE | 2021-08-25 09:11 | PCM.PN.CARD ---
Subjective Subjective Patient seen and evaluated. Still on the ventilator. Not really responsive. Objective Data Vital Signs: Vital Signs Temp Pulse Resp BP Pulse Ox O2 Del Method FiO2 99.8 F H 82 18 151/68 H 99 Mechanical Ventilator 25 08/25/21 07:00 08/25/21 07:00 08/25/21 07:00 08/25/21 07:00 08/25/21 07:00 08/25/21 07:00 08/25/21 07:00 Oxygen Delivery Method Mechanical Ventilator Weight: 215 lb 9.793 oz Body Mass Index (BMI) 829373.4 Intake & Output: Intake and Output for Last 24 Hours 08/23/21 08/24/21 08/25/21 23:59 23:59 23:59 Intake Total 1402.47 / 1408.70 1236.06 / 1236.06 Output Total 680 / 680 150 / 150 Balance 722.47 / 728.70 1086.06 / 1086.06 Lab / Micro Data Result Diagrams: 08/25/21 02:55 08/25/21 02:55 Labs: Laboratory Results - last 24 hr 08/24/21 12:00: WBC 11.4 H, RBC 4.22, Hgb 12.9, Hct 38.7, MCV 91.7, MCH 30.6, MCHC 33.3, RDW Std Deviation 42.6, RDW Coeff of Dougie 12.7, Plt Count 252, MPV 11.3, Immature Gran % (Auto) 4.900 H, Neut % (Auto) 58.6, Lymph % (Auto) 26.9, [place] % (Auto) 7.4, Eos % (Auto) 1.7, Baso % (Auto) 0.5, Absolute Neuts (auto) 6.7, Absolute Lymphs (auto) 3.06, Nucleated RBC % 0 08/24/21 12:00: Sodium 139, Potassium 4.1, Chloride 108 H, Carbon Dioxide 18.0 L, Anion Gap 13, BUN 35 H, Creatinine 1.27 H, Estim Creat Clear Calc 42.17, Est GFR (MDRD) Af Amer 54 L, Est GFR (MDRD) Non-Af 44 L, BUN/Creatinine Ratio 27.6 H, Glucose 297 H, Calcium 8.9, Magnesium 2.1, Troponin I High Sens 283 H*, TSH 5.95 H 08/24/21 12:00: PT 15.3 H, INR 1.2, APTT 65.1 H 08/24/21 12:00: Ethyl Alcohol < 3.0 08/24/21 14:45: Total Bilirubin 0.40, Direct Bilirubin 0.11, AST 121 H, ALT 107 H, Alkaline Phosphatase 83, Troponin I High Sens 2107 H*, Total Protein 6.4, Albumin 3.3, Globulin 3.1 08/24/21 14:45: Hemoglobin A1c 5.8 H 08/24/21 14:45: Total Creatine Kinase 264 H, Triglycerides 67 08/24/21 15:08: Urine Color Yellow, Urine Clarity Clear, Urine pH 6.5, Ur Specific [place] 1.010, Urine Protein 30 H, Urine Glucose (UA) Normal, Urine Ketones Negative, Urine Occult Blood 50 H, Urine Nitrite Negative, Urine Bilirubin Negative, Urine Urobilinogen Normal, Ur Leukocyte Esterase Negative, Urine RBC 0-5 SEEN, Urine WBC 0-5 SEEN, Ur Squamous Epith Cells 0 SEEN, Urine Bacteria 0 SEEN, Urine Mucus 0 SEEN 08/24/21 17:15: Urine Opiates Screen POSITIVE H, Urine Methadone Screen NEGATIVE, Ur Barbiturates Screen NEGATIVE, Ur Phencyclidine Scrn NEGATIVE, Ur Amphetamines Screen NEGATIVE, MDMA (Ecstasy) Screen NEGATIVE, U Benzodiazepines Scrn POSITIVE H, Urine Cocaine Screen NEGATIVE, U Cannabinoids Screen NEGATIVE, Ur Drug Screen Comment 08/24/21 18:00: Procalcitonin 0.98 H 08/24/21 18:00: Ammonia 36.0 H 08/24/21 19:26: POC Glucose 199 H 08/24/21 23:37: POC Glucose 206 H 08/25/21 02:55: WBC 12.7 H, RBC 3.73 L, Hgb 11.4 L, Hct 34.3 L, MCV 92.0, MCH 30.6, MCHC 33.2, RDW Std Deviation 43.9, RDW Coeff of Dougie 13.2, Plt Count 177, MPV 10.8, Immature Gran % (Auto) 0.600, Neut % (Auto) 90.6 H, Lymph % (Auto) 3.6 L, [place] % (Auto) 5.1, Eos % (Auto) 0.0, Baso % (Auto) 0.1, Absolute Neuts (auto) 11.5 H, Absolute Lymphs (auto) 0.46 L, Nucleated RBC % 0, Differential Comment SCANNED 08/25/21 02:55: Sodium 143, Potassium 4.0, Chloride 114 H, Carbon Dioxide 21.0, Anion Gap 8, BUN 36 H, Creatinine 1.14 H, Estim Creat Clear Calc 80.80, Est GFR (MDRD) Af Amer 61, Est GFR (MDRD) Non-Af 50 L, BUN/Creatinine Ratio 31.6 H, Glucose 157 H, Calcium 8.4 L, Magnesium 2.0, Total Bilirubin 0.40, AST 81 H, ALT 83 H, Alkaline Phosphatase 66, Total Protein 5.8 L, Albumin 2.9 L, Globulin 2.9, Albumin/Globulin Ratio 1.0, TSH 0.68 08/25/21 05:57: POC Glucose 125 H Micro: Microbiology 08/24/21 15:55 Nasal Secretion SARS-CoV-2 Antigen (Rapid) - Final ABG Data ABG results: ABG 08/24/21 08/24/21 14:12 17:27 Specimen Type ART ART Sample Site L Radial R Brach pH 7.22 L 7.37 Bicarbonate Actual 22.8 20.0 L Total CO2 25 21 Base Excess -5 L -5 L O2 Saturation 98 95 O2 % 60 40 ABG pCO2 55.9 H 34.8 L ABG pO2 118 H 77 [place] Test Positive Positive Respiration Rate 14 18 O2 Delivery Device Adult Vent AeroMask Vent Mode AC AC Tidal Volume 400 400 POC PEEP 5 5 Cardiology Labs/Tests 08/24/21 12:00: WBC 11.4 H, RBC 4.22, Hgb 12.9, Hct 38.7, MCV 91.7, MCH 30.6, MCHC 33.3, Plt Count 252, MPV 11.3, Immature Gran % (Auto) 4.900 H, Neut % (Auto) 58.6, Lymph % (Auto) 26.9, [place] % (Auto) 7.4, Eos % (Auto) 1.7, Baso % (Auto) 0.5, Absolute Neuts (auto) 6.7, Nucleated RBC % 0 08/24/21 12:00: Sodium 139, Potassium 4.1, Chloride 108 H, Carbon Dioxide 18.0 L, Anion Gap 13, BUN 35 H, Creatinine 1.27 H, Est GFR (MDRD) Af Amer 54 L, Est GFR (MDRD) Non-Af 44 L, BUN/Creatinine Ratio 27.6 H, Glucose 297 H, Calcium 8.9, Magnesium 2.1 08/24/21 12:00: PT 15.3 H, INR 1.2, APTT 65.1 H 08/24/21 14:12: pH 7.22 L, Bicarbonate Actual 22.8, Base Excess -5 L, O2 Saturation 98, ABG pCO2 55.9 H, ABG pO2 118 H, Juaquin Test Positive 08/24/21 14:45: Total Bilirubin 0.40, Direct Bilirubin 0.11 08/24/21 14:45: Hemoglobin A1c 5.8 H 08/24/21 14:45: Triglycerides 67 08/24/21 15:08: Urine Color Yellow, Urine Clarity Clear, Urine pH 6.5, Ur Specific [place] 1.010, Urine Protein 30 H, Urine Glucose (UA) Normal, Urine Ketones Negative, Urine Occult Blood 50 H, Urine Nitrite Negative, Urine Bilirubin Negative, Urine Urobilinogen Normal, Ur Leukocyte Esterase Negative, Urine RBC 0-5 SEEN, Urine WBC 0-5 SEEN 08/24/21 17:27: pH 7.37, Bicarbonate Actual 20.0 L, Base Excess -5 L, O2 Saturation 95, ABG pCO2 34.8 L, ABG pO2 77, [place] Test Positive 08/25/21 02:55: WBC 12.7 H, RBC 3.73 L, Hgb 11.4 L, Hct 34.3 L, MCV 92.0, MCH 30.6, MCHC 33.2, Plt Count 177, MPV 10.8, Immature Gran % (Auto) 0.600, Neut % (Auto) 90.6 H, Lymph % (Auto) 3.6 L, [place] % (Auto) 5.1, Eos % (Auto) 0.0, Baso % (Auto) 0.1, Absolute Neuts (auto) 11.5 H, Nucleated RBC % 0 08/25/21 02:55: Sodium 143, Potassium 4.0, Chloride 114 H, Carbon Dioxide 21.0, Anion Gap 8, BUN 36 H, Creatinine 1.14 H, Est GFR (MDRD) Af Amer 61, Est GFR (MDRD) Non-Af 50 L, BUN/Creatinine Ratio 31.6 H, Glucose 157 H, Calcium 8.4 L, Magnesium 2.0, Total Bilirubin 0.40 Rhythm: EKG: ECHO: Stress Test: Cardiac Cath: PCI: CT Surgery: Holter monitor: EPS: PPM: CXR: Chest CT Scan: Radiography Diagnostic Testing: Radiology Impression Chest X-Ray 08/24/21 11:56 IMPRESSION: Right mainstem intubation; recommend 6 cm retraction. Satisfactory appearance of nasogastric tube. Low lung volumes with left greater than right atelectasis or pneumonia. Electronically Signed: Staci Jensen MD at 13:01 EDT , ADDENDUM: 08/24/21 1324 IMPRESSION: Right mainstem intubation; recommend 6 cm retraction. Satisfactory appearance of nasogastric tube. Low lung volumes with left greater than right atelectasis or pneumonia. N.B. : Suresh Barriga MD, confirmed on 08/24/2021 13:17:20 (ET) that the healthcare facility has received the radiology report. Electronically Signed: Staci Jensen MD at 13:01 EDT , Brain CT 08/24/21 12:02 IMPRESSION: Chronic involutional changes of the brain. Electronically Signed: Roxane Lezama MD at 13:21 EDT , Chest CTA 08/24/21 12:02 IMPRESSION: No demonstrated pulmonary embolism or arterial dissection. Endotracheal tube with in the right mainstem bronchus, recommend retraction by 5 cm. Bilateral dependent consolidation, most pronounced within the left lower lobe. Atherosclerosis. Electronically Signed: Roxane Lezama MD at 13:27 EDT , ADDENDUM: 08/24/21 1409 IMPRESSION: undefined Chest X-Ray 08/24/21 12:15 IMPRESSION: Endotracheal tube within the right mainstem bronchus, recommend retraction of 4-5 cm. Patchy opacity within the left lower lung may be secondary to underlying atelectasis and/or pneumonia. Electronically Signed: Roxane Lezama MD at 13:29 EDT , Physical Exam Const Constitutional Narrative: Intubated unresponsive General Appearance: intubated and patient mechanically ventilated Nutritional Appearance: obese HEENT normocephalic and head/scalp atraumatic Mouth: endotracheal tube in place and OG tube in place Eyes PERRL and conjunctivae normal Neck supple General: trachea midline Chest inspection of chest normal Resp normal respiratory effort Auscultation: Negative for rales, rhonchi or wheezes Cardio regular rate and regular rhythm GI normal to inspection, nondistended, normoactive bowel sounds Extremity no clubbing, cyanosis or edema Skin no rashes or lesions noted Neuro Neuro Narrative: The patient does initiate small tidal volume breaths on spontaneous mode mechanical ventilation. She does demonstrate facial grimacing and appears uncomfortable with noxious stimulation and suctioning. Assessment & Plan Assessment/Plan (1) Cardiopulmonary arrest: PLAN: The etiology of the above is not clear at this particular time. There does not appear to be any obvious cardiac reason for this. Her ejection fraction is normal and her coronary arteries does not demonstrate any significant obstruction. The cardiac arrhythmia cannot be completely excluded. The troponin elevation is likely secondary to the severe hypoxia and the CPR. Will await further recovery from the neurologic standpoint. Thank you for allowing me to participate in the care of your patient. Please don't hesitate to call if any issues arise.
[2021-08-25] MEDS: Enoxaparin 40 MG/0.4 ML Syringe SC (10:00)
[2021-08-25] MEDS: Chlorhexidine 15 ML PO ×2 (10:00→21:00)
--- NOTE | 2021-08-25 10:16 | PN.HOSP_ITS ---
Documented by User: Dr. Angela Milian, 08/25/21 14:32 Subjective Subjective Patient remains intubated and sedated. Per discussion with nursing sedation vacation was performed and patient did poorly with periods of apnea. Seems to be riding the ventilator with regards to her respiratory status. Objective Data Objective Data Vital Signs: Vital Signs Temp Pulse Resp BP Pulse Ox O2 Del Method FiO2 99.8 F H 81 18 151/68 H 99 Mechanical Ventilator 25 08/25/21 07:00 08/25/21 07:00 08/25/21 07:00 08/25/21 07:00 08/25/21 07:00 08/25/21 07:00 08/25/21 07:00 Oxygen Delivery Method Mechanical Ventilator Weight: 97.8 kg Body Mass Index (BMI) 394517.4 Intake & Output: Intake and Output for Last 24 Hours 08/23/21 08/24/21 08/25/21 23:59 23:59 23:59 Intake Total 1402.47 / 1408.70 1236.06 / 1236.06 Output Total 680 / 680 795 / 795 Balance 722.47 / 728.70 441.06 / 441.06 Lab / Micro Data Result Diagrams: 08/25/21 02:55 08/25/21 02:55 Labs: Laboratory Results - last 24 hr 08/24/21 12:00: WBC 11.4 H, RBC 4.22, Hgb 12.9, Hct 38.7, MCV 91.7, MCH 30.6, MCHC 33.3, RDW Std Deviation 42.6, RDW Coeff of Dougie 12.7, Plt Count 252, MPV 11.3, Immature Gran % (Auto) 4.900 H, Neut % (Auto) 58.6, Lymph % (Auto) 26.9, Morrill % (Auto) 7.4, Eos % (Auto) 1.7, Baso % (Auto) 0.5, Absolute Neuts (auto) 6.7, Absolute Lymphs (auto) 3.06, Nucleated RBC % 0 08/24/21 12:00: Sodium 139, Potassium 4.1, Chloride 108 H, Carbon Dioxide 18.0 L , Anion Gap 13, BUN 35 H, Creatinine 1.27 H, Estim Creat Clear Calc 42.17, Est GFR (MDRD) Af Amer 54 L, Est GFR (MDRD) Non-Af 44 L, BUN/Creatinine Ratio 27.6 H , Glucose 297 H, Calcium 8.9, Magnesium 2.1, Troponin I High Sens 283 H*, TSH 5.95 H 08/24/21 12:00: PT 15.3 H, INR 1.2, APTT 65.1 H 08/24/21 12:00: Ethyl Alcohol < 3.0 08/24/21 14:45: Total Bilirubin 0.40, Direct Bilirubin 0.11, AST 121 H, ALT 107 H, Alkaline Phosphatase 83, Troponin I High Sens 2107 H*, Total Protein 6.4, Albumin 3.3, Globulin 3.1 08/24/21 14:45: Hemoglobin A1c 5.8 H 08/24/21 14:45: Total Creatine Kinase 264 H, Triglycerides 67 08/24/21 15:08: Urine Color Yellow, Urine Clarity Clear, Urine pH 6.5, Ur Specific [place] 1.010, Urine Protein 30 H, Urine Glucose (UA) Normal, Urine Ketones Negative, Urine Occult Blood 50 H, Urine Nitrite Negative, Urine Bilirubin Negative, Urine Urobilinogen Normal, Ur Leukocyte Esterase Negative, Urine RBC 0-5 SEEN, Urine WBC 0-5 SEEN, Ur Squamous Epith Cells 0 SEEN, Urine Bacteria 0 SEEN, Urine Mucus 0 SEEN 08/24/21 17:15: Urine Opiates Screen POSITIVE H, Urine Methadone Screen NEGATIVE, Ur Barbiturates Screen NEGATIVE, Ur Phencyclidine Scrn NEGATIVE, Ur Amphetamines Screen NEGATIVE, MDMA (Ecstasy) Screen NEGATIVE, U Benzodiazepines Scrn POSITIVE H, Urine Cocaine Screen NEGATIVE, U Cannabinoids Screen NEGATIVE, Ur Drug Screen Comment 08/24/21 18:00: Procalcitonin 0.98 H 08/24/21 18:00: Ammonia 36.0 H 08/24/21 19:26: POC Glucose 199 H 08/24/21 23:37: POC Glucose 206 H 08/25/21 02:55: WBC 12.7 H, RBC 3.73 L, Hgb 11.4 L, Hct 34.3 L, MCV 92.0, MCH 30.6, MCHC 33.2, RDW Std Deviation 43.9, RDW Coeff of Dougie 13.2, Plt Count 177, MPV 10.8, Immature Gran % (Auto) 0.600, Neut % (Auto) 90.6 H, Lymph % (Auto) 3.6 L, Morrill % (Auto) 5.1, Eos % (Auto) 0.0, Baso % (Auto) 0.1, Absolute Neuts (auto) 11.5 H, Absolute Lymphs (auto) 0.46 L, Nucleated RBC % 0, Differential Comment SCANNED 08/25/21 02:55: Sodium 143, Potassium 4.0, Chloride 114 H, Carbon Dioxide 21.0, Anion Gap 8, BUN 36 H, Creatinine 1.14 H, Estim Creat Clear Calc 80.80, Est GFR (MDRD) Af Amer 61, Est GFR (MDRD) Non-Af 50 L, BUN/Creatinine Ratio 31.6 H, Glucose 157 H, Calcium 8.4 L, Magnesium 2.0, Total Bilirubin 0.40, AST 81 H, ALT 83 H, Alkaline Phosphatase 66, Total Protein 5.8 L, Albumin 2.9 L, Globulin 2.9, Albumin/Globulin Ratio 1.0, TSH 0.68 08/25/21 05:57: POC Glucose 125 H Micro: Microbiology 08/24/21 15:55 Nasal Secretion SARS-CoV-2 Antigen (Rapid) - Final ABG Data ABG results: ABG 08/24/21 08/24/21 14:12 17:27 Specimen Type ART ART Sample Site L Radial R Brach pH 7.22 L 7.37 Bicarbonate Actual 22.8 20.0 L Total CO2 25 21 Base Excess -5 L -5 L O2 Saturation 98 95 O2 % 60 40 ABG pCO2 55.9 H 34.8 L ABG pO2 118 H 77 Juaquin Test Positive Positive Respiration Rate 14 18 O2 Delivery Device Adult Vent AeroMask Vent Mode AC AC Tidal Volume 400 400 POC PEEP 5 5 Radiography Diagnostic Testing: Radiology Impression Chest X-Ray 08/24/21 11:56 IMPRESSION: Right mainstem intubation; recommend 6 cm retraction. Satisfactory appearance of nasogastric tube. Low lung volumes with left greater than right atelectasis or pneumonia. Electronically Signed: Staci Jensen MD at 13:01 EDT , ADDENDUM: 08/24/21 1324 IMPRESSION: Right mainstem intubation; recommend 6 cm retraction. Satisfactory appearance of nasogastric tube. Low lung volumes with left greater than right atelectasis or pneumonia. N.B. : Suresh Barriga MD, confirmed on 08/24/2021 13:17:20 (ET) that the healthcare facility has received the radiology report. Electronically Signed: Staci Jensen MD at 13:01 EDT , Brain CT 08/24/21 12:02 IMPRESSION: Chronic involutional changes of the brain. Electronically Signed: Roxane Lezama MD at 13:21 EDT , Chest CTA 08/24/21 12:02 IMPRESSION: No demonstrated pulmonary embolism or arterial dissection. Endotracheal tube with in the right mainstem bronchus, recommend retraction by 5 cm. Bilateral dependent consolidation, most pronounced within the left lower lobe. Atherosclerosis. Electronically Signed: Roxane Lezama MD at 13:27 EDT , ADDENDUM: 08/24/21 1409 IMPRESSION: undefined Chest X-Ray 08/24/21 12:15 IMPRESSION: Endotracheal tube within the right mainstem bronchus, recommend retraction of 4-5 cm. Patchy opacity within the left lower lung may be secondary to underlying atelectasis and/or pneumonia. Electronically Signed: Roxane Lezama MD at 13:29 EDT , Physical Exam Const well nourished Constitutional Narrative: Obese older white female lying in bed currently intubated and sedated ET tube in place and well secured. Nursing at bedside HEENT head/scalp atraumatic and moist oral mucous membranes HEENT Narrative: Dried blood on lips and saliva is [id number] related to manipulation of ET tube and complicated intubation Eyes PERRL and conjunctivae normal Neck no lymphadenopathy and supple Resp no retractions, no use of accessory muscles and clear to auscultation bilaterally Resp Narrative: Ryland intubated and sedated, patient's showing no significant respiratory drive over vent settings Effort and Inspection: symmetric chest movement and mechanically ventilated Auscultation: Negative for crackles, rales, rhonchi or wheezes Cardio regular rate, regular rhythm, S1 normal heart sound, S2 normal heart sound, no murmurs, no rub, no gallops, no clicks and no JVD GI normal to inspection, nondistended, normoactive bowel sounds, soft to palpation, non-tender and non-distended Extremity normal to inspection and no clubbing, cyanosis or edema Skin no rashes or lesions noted, no wounds, skin turgor normal, no jaundice, no petechiae and no mottling Neuro moves all extremities and deep tendon reflexes 2+ bilaterally Motor Exam: no fasciculations and clonus absent Comatose: response to noxious stimuli present Assessment & Plan Assessment/Plan (1) Cardiopulmonary arrest: (2) Respiratory failure: (3) Elevated troponin: (4) Elevated serum creatinine: (5) Hyperglycemia: (6) Rib fractures: PLAN: Plan CPA -Estimated CPR time at least 15 minutes after EMS arrival -Uncertain downtime prior -Etiology uncertain at this time given negative work-up thus far -Echocardiogram is pending -EEG shows generalized suppression of electrical activity over all head regions with no discernible activity of cerebral origin is identified and this EEG suggested severe diffuse bihemispheric cerebral dysfunction -MRI pending for tomorrow -Doubt infectious etiology however work-up is in progress -Continue to hold empiric antibiotics -Toxicology screen shows benzodiazepines-OARRS is negative/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 -Unclear where these were from -Cardiac catheterization unremarkable -Patient critical care input Acute hypoxic respiratory failure secondary to CPA -Maintain ventilation -ABG repeated showed correction acidosis -Chest x-ray stable -Propofol and fentanyl for sedation -Sedation vacations per ICU -Patient with a ET tube in place however unable to inflate cuff but obtaining adequate volumes on the ventilator -Critical care medicine following Rib fractures -Likely related to CPR -Patient on sedation with fentanyl and propofol at this time -We will have to further evaluate once patient is more awake Troponin elevation -Likely related to defibrillation efforts -No reason for further cycle -Cardiac cath was unremarkable Transaminitis -Could be related to arrest however patient does also have fatty liver at [facility] -Trending down Hyperglycemia -blood sugar was 297 on arrival -A1c was obtained and found to be 5.8 -Blood sugars have been stable since admission we will discontinue insulin and blood sugar checks Hypertension -Patient takes atenolol 50 mg at baseline -Hold antihypertensives at this time -As needed medications available GERD -Patient on omeprazole 20 mg at home -We will continue on Protonix 40 mg here Hyperlipidemia -Patient on simvastatin 40 mg at baseline -Continue to hold Obesity -BMI 36.8 -Complicates treatment, prognosis, outcomes -Recommend weight loss DVT prophylaxis -Lovenox subcu daily -SCDs CODE STATUS -Full code Charges/Coding Visit Charges Inpatient E&M: 67713 Subs Hosp L2 Documented by User: CHARLEE LAGUNAS 08/25/21 14:25 Subjective Subjective Patient remains on ventilator with sedation, appears comfortable. Eyes open without tracking, mild monoclonus jerks bilaterally in face and upper body. No purposeful or meaningful interaction. Objective Data Lab / Micro Data Attestation: I reviewed the patient's lab results. Result Diagrams: 08/25/21 02:55 08/25/21 02:55 Physical Exam Const well nourished Constitutional Narrative: Older, obese, white female resting with head of bed elevated and on ventilator. HEENT head/scalp atraumatic and moist oral mucous membranes HEENT Narrative: Saliva is blood-tinged, likely secondary to intubation and subsequent ET tube manipulation. Eyes Eyes Narrative: Patient's eyes are open. No scleral icterus. Eyes do not track movement. Pupils are 2 mm bilaterally and reactive to light equally. Neck no lymphadenopathy, supple and no carotid bruits Neck Narrative: Neck is short and thick. Trachea is midline. Resp no retractions, no use of accessory muscles and clear to auscultation bi laterally Resp Narrative: Patient remains on ventilator with sedation. Auscultation: Negative for crackles, rales, rhonchi or wheezes Cardio regular rate, regular rhythm, S1 normal heart sound, S2 normal heart sound, no murmurs, no rub, no gallops, no clicks and no JVD GI soft to palpation, non-tender and non-distended GI Narrative: Protuberant abdomen. Auscultation: hypoactive bowel sounds Palpation: Negative for tender, guarding or hernia Extremity normal to inspection and no clubbing, cyanosis or edema Extremity Narrative: Left pedal pulse 1+, lt foot cooler to touch. Right pedal pulse and bilateral radial pulses 2+, warm. General Extremity: Negative for edema Skin no rashes or lesions noted, no wounds, skin turgor normal, no jaundice, no pet echiae and no mottling General Skin Exam: no breakdown Neuro Neuro Narrative: Patient is nonresponsive with no purposeful or meaningful interaction. Sedation holiday was performed during the night, and patient was grimacing and restless, per nursing. Bicep and patellar reflexes 2+ bilaterally. No ankle clonus present. Psych Psych Narrative: Patient is nonresponsive with no purposeful or meaningful interaction. 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 Unknown downtime prior to CPR with estimated CPR time of 15 minutes, concerning for anoxic injury ? Uncertain etiology of arrest ? Echo pending ? Investigate infectious etiology, blood and sputum cultures pending ? Tox screen positive for opiates and benzodiazepines. Unclear source of benzodiazepines. ? Procalcitonin mildly elevated at 0.98 ? Line Server consult reviewed, neurology consult initiated ? Trend CMP, CBC ? Maintain core temperature monitoring, mild upward trend, will monitor ? Initiate gastric tube feeds Respiratory failure ? Patient remains nonresponsive following ROSC ? Maintain ET tube/OG tube ? Continue assist?control mode mechanical ventilation ? Wean FiO2 for saturations greater than 90% ? Propofol and fentanyl drip for sedation, limit as tolerated ? Morning chest x-ray shows ET tube 4.4 cm above the falguni, left lower lobe atelectasis with trace pleural effusion Suspected anoxic encephalopathy ? Likely secondary to the above ? Sedation holiday performed, patient grimacing and restless ? No apparent metabolic abnormality, underlying infection, or attributable toxins ? Significant myoclonus last evening, patient loaded with Keppra ? Myoclonus improved, continue Keppra every 12 hours ? EEG report suggests severe diffuse bihemispheric cerebral dysfunction ? Brain MRI tomorrow Elevated troponin ? Troponin on arrival to 83-->2106 ? Cardiac catheterization revealed no significant disease in left main and less than 30% luminal irregularities in the LAD, circumflex, and RCA with estimated EF of 60% ? Likely secondary to CPR and multiple defibrillation ? No need to trend Elevated serum creatinine ? Creatinine 1.14, trending down after one liter 0.9 NS ? Unsure patient baseline ? Trend CMP Transaminitis ? Possibly secondary to cardiopulmonary arrest ? AST and ALT are trending down, 81 and 83 respectively ? Trend CMP Rib fractures ? Nondisplaced anterior and lateral, as per chest CTA ? Secondary to CPR ? Patient remains on sedation ? Will assess as mentation allows Hyperglycemia ? Glucose 157 ? Hemoglobin A1c 5.8 ? Insulin lispro per sliding scale protocol every 6 hours Obesity ? BMI 40.7 ? Complicates treatment, prognosis, outcomes History of hypertension ? Systolic blood pressures 151-160 today ? Holding home atenolol ? Hydralazine 10 mg IV as needed 6 hours for systolic blood pressure greater than 160 History of hyperlipidemia ? Holding home simvastatin History of GERD ? Holding home omeprazole ? Pantoprazole 40 mg IV daily DVT prophylaxis ? Enoxaparin 40 mg subcu daily ? SCDs CODE STATUS ? Full code
[2021-08-25] MEDS: Vital AF 1.2 Cal Liquid 1,000 ML 20 ML GT (11:47)
[2021-08-25 12:30] LABS: Bedside Glucose 100 mg/dL (74-106)
[2021-08-25] MEDS: LORazepam 2 MG/ML Syringe IV (13:44)
[2021-08-25 14:29] LABS: Phosphorus 2.9 mg/dL (2.5-4.9)
[2021-08-25] MEDS: CHLORHEXIDINE GLUC 2% CLOTH 1 EACH TOWELETTE TOPICAL (16:07)
--- NOTE | 2021-08-25 18:15 | RAD_ITS ---
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 oet placement TECHNIQUE: Single AP portable view of the chest. COMPARISON: 5:54 AM. FINDINGS: ET tube terminates 4.8 cm above the falguni. Nasogastric tube traverses the thorax. Terminus lies outside the [id number]-ha-solb. The lungs are clear and expanded. There is no demonstrated pleural abnormality. Normal size heart. Normal mediastinum and loco. Normal visualized pulmonary arteries. Normal visualized aortic arch and descending thoracic aorta. Normal visualized thoracic spine. Normal visualized ribs, clavicles, and shoulders. There is no demonstrated abnormality of the visualized soft tissue structures of the upper abdomen. RAD/Chest 1 View (Portable) IMPRESSION: ET tube 4.8 cm above the falguni. Electronically Signed: Nicol Alejandre MD at 23:55 EDT Reading Location ID and State: [id number] / Tel , Service support ,
--- NOTE | 2021-08-25 20:22 | RAD_ITS ---
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 advanced ET tube TECHNIQUE: Single AP portable view of the chest. COMPARISON: 6:11 PM. FINDINGS: ET tube terminates 1.6 cm above the falguni. NG tube traverses the thorax. Terminus is outside the field of view. Low lung volumes. Evaluation of the lungs is limited due to respiratory motion artifact. No obvious consolidation. There is no demonstrated pleural abnormality. Normal size heart. Normal mediastinum and loco. Normal visualized aortic arch and descending thoracic aorta. RAD/Chest 1 View (Portable) IMPRESSION: Limited study. ET tube terminates 1.6 cm above the falguni. Electronically Signed: Nicol Alejandre MD at 21:59 EDT Reading Location ID and State: [id number] / Tel , Service support ,
--- NOTE | 2021-08-25 22:13 | RAD_ITS ---
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 ET tube adjustment TECHNIQUE: Single AP portable view of the chest. COMPARISON: 8:15 PM. FINDINGS: ET tube terminates 3 cm above the falguni. NG tube traverses the thorax. Terminus is outside the field of view. The lungs are clear and expanded. There is no demonstrated pleural abnormality. Normal size heart. Normal mediastinum and loco. Normal visualized pulmonary arteries. Normal visualized aortic arch and descending thoracic aorta. Normal visualized thoracic spine. Normal visualized ribs, clavicles, and shoulders. There is no demonstrated abnormality of the visualized soft tissue structures of the upper abdomen. RAD/Chest 1 View (Portable) IMPRESSION: ET tube in place. Electronically Signed: Nicol Alejandre MD at 23:37 EDT Reading Location ID and State: [id number] / Tel , Service support ,
[2021-08-25] MEDS: Propofol 10MG/Ml 1,000 MG/100 ML Bottle 20.5 MG CONT INF (22:25)
--- NOTE | 2021-08-25 23:15 | CPS ---
ETT tube withdrawn 2 cmH2O per verbal order from Dr. Shea
[2021-08-26] VITALS (37 sets, daily range): BP systolic 112–190; BP diastolic 46–91; PULSE 76–111; RESP 16–32; TEMP 37.4–38; O2SAT 92–100
[2021-08-26] MEDS: Propofol 10MG/Ml 1,000 MG/100 ML Bottle 20.5 MG CONT INF (02:58)
[2021-08-26 03:22] LABS: ALB/GLOB Ratio 0.8 RATIO (0.9-2.4); AST(SGOT) 72 U/L (15-37); Alanine Aminotransfer ALT/SGPT 68 U/L (13-56); Albumin, Serum 2.5 g/dL (3.2-5.0); Alkaline Phosphatase 63 U/L (45-117); Anion Gap 6 (5-15); BUN 32 mg/dL (7-18); BUN/Creat Ratio 31.1 RATIO (10-20); Calcium,Total 8.7 mg/dL (8.5-10.1); Chloride 113 mmol/L (98-107); Creatinine, Serum 1.03 mg/dL (0.55-1.02); EST Glomerular Filtration Rate 57 mL/min (>60); Est Glom Filt Rate - Afr Amer 68 mL/min (>60); Globulin 3.1 g/dL (2.2-4.2); Glucose 128 mg/dL (74-106); Potassium 3.6 mmol/L (3.5-5.1); Protein, Total 5.6 g/dL (6.4-8.2); Sodium Level 142 mmol/L (136-145)
[2021-08-26 03:40] LABS: Absolute Lymphocyte Count 1.03 X10^3/uL (0.83-4.51); Absolute Neutrophil Count 7.5 X10^3/uL (2.0-7.7); Basophil# 0.02 X10^3/uL; Basophil% 0.2 % (0-1); Eosinophil# 0.09 X10^3/uL; Hematocrit 35.6 % (37-47); Hemoglobin 11.6 g/dL (12.0-15.0); Lymphocyte # 1.03 X10^3/ul (0.83-4.51); Lymphocyte % 10.9 % (19-41); Mean Corp Hgb Conc 32.6 g/dL (32-36); Mean Corpuscular Hgb 30.4 pg (27.0-32.0); Mean Corpuscular Volume 93.4 fL (81-99); Mean Platelet Vol. 11.3 fl (6.2-12.0); Monocyte# 0.84 X10^3/uL; Monocyte% 8.9 % (0-10); NRBC Flagged by Analyzer 0 % (0-5); Neutrophil # 7.45 X10^3/uL (2.7-7.7); Neutrophil % 78.6 % (47-70); Platelet Count 155 K/mm3 (150-450); RBC Distribution Width CV 13.7 % (11.6-14.6); RBC Distribution Width SD 46.5 fl (35.1-43.9); Red Blood Count 3.81 M/mm3 (4.2-5.4); White Blood Count 9.5 K/mm3 (4.4-11.0)
[2021-08-26] MEDS: CHLORHEXIDINE GLUC 2% CLOTH 1 EACH TOWELETTE TOPICAL (05:02)
[2021-08-26] MEDS: TITRATION PARAMETER CHANGE 1 EACH IV ×2 (05:47→08:44)
[2021-08-26] MEDS: Propofol 10MG/Ml 1,000 MG/100 ML Bottle 20.7 MG CONT INF ×2 (06:54→12:17)
--- NOTE | 2021-08-26 06:55 | MRI_ITS ---
ACR Level 3 findings have been noted. An addendum which confirms receipt of the report will follow. STUDY: MRI BRAIN WITHOUT CONTRAST REASON FOR EXAM: Female, 71 years old. anoxia,intubated TECHNIQUE: Standardized multiplanar fat and water weighted pulse sequences were obtained. COMPARISON: None. 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 Single focus of diffusion weighted bright signal in the right central cerebellar region, as along the folia and likely related to hypoxic ischemia rather than an acute infarct. There is mild cerebral atrophy with widening of the extra-axial spaces and ventricular dilatation. There are a limited number of small white matter hyperintensities, distributed throughout the deep white matter tracts of the cerebral hemispheres, consistent with mild chronic white matter ischemic changes. Normal T2* images of the brain without demonstrated susceptibility artifact. There is no demonstrated hemosiderin stain. There is no evidence for recent infarct on diffusion weighted imaging (DWI). Normal bilateral basal ganglia. Normal thalami. There is no extra-axial fluid accumulation. Normal flow voids within the major intracranial circulation suggesting patency by spin echo criteria. There is enlargement of the sella turcica with increased CSF within the sella and flattening of the pituitary gland consistent with an empty sellar syndrome. Normal infundibular stalk, hypothalamus, and optic chiasm. Normal tectal plate and pineal gland. Normal midbrain, david and medulla. Normal cerebellum. Normal basal cisterns. Normal bilateral temporal bones. Normal bilateral internal auditory canals. No demonstrated orbital abnormality, within the constraints of a routine brain study. Normal visualized paranasal sinuses. Normal calvarium and skull base. Normal visualized soft tissue structures. Normal visualized upper cervical spine. MRI/Brain without Contrast IMPRESSION: 1. 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 Electronically Signed: Kaushal Oliva MD at 12:01 EDT ,
[2021-08-26 07:15] LABS: Allen Test Positive; Base Excess -4 mmol/L (-2 to +2); Bicarbonate 20.5 mmol/L (22-26); Blood Gas Specimen Type ART; FI02 25; Mode AC/PC; O2 Delivery Device Adult Vent; PEEP 5; PO2 68 mmHG (75-100); RR 18; SITE R Radial; SO2 94 % (95-99); Total Carbon Dioxide 22 mmol/L; pCO2 33.3 mmHg (35-45)
--- NOTE | 2021-08-26 07:25 | PN.CC_ITS ---
Assessment & Plan Assessment/Plan (1) Respiratory failure: (2) Cardiopulmonary arrest: PLAN: Plan RECOMMENDATIONS: 1. Decrease rate. Continue assist-control mode mechanical ventilation. Wean FiO2 for saturations greater than 90%. 2. Limit sedation as tolerated. 3. Continue Keppra as ordered. 4. Await neurology recommendations 5. MRI scheduled for today 6. Await results of echocardiogram. 7. Continue appropriate ICU prophylaxis. 8. Continue tube feeds IMPRESSIONS: 1. Acute hypoxemic respiratory failure in the setting of out of hospital cardiac arrest Unclear precipitating etiology. Possible benzo overdose. Both cardiac catheterization and CTA chest were unrevealing. ABG is appropriate at this time. Plan to continue assist-control mode of mechanical ventilation and wean FiO2 for saturations greater than 90%. I would recommend limiting sedation as tolerated to best assess the patient's underlying neurologic status. The patient does appear to have infiltrates on her chest imaging. While the findings could be related to the CPR that she received, I am also going to place her empirically on antimicrobials. Cultures are pending. Awaiting results of echocardiogram. 2. Probable anoxic brain injury The patient is demonstrating myoclonic jerking on examination. However, she does initiate spontaneous breaths and does appear to respond to noxious stimulation. Accordingly, EEG has been completed showing severe anoxic injury. Recommend obtaining neurology consultation. In the interim, attempt to limit sedation as tolerated. Continue Keppra as ordered. Patient does have reflexes, so brain will not be initiated. ABG shows adequate oxygenation and ventilation on the current settings, but will decrease respiratory rate to attempt to stimulate spontaneous respiratory effort 3. Mild transaminitis/hypertension/GERD/hyperlipidemia/obesity Complicates care, management, recovery and prognosis. Continue supportive measures as noted above. TIME: 33 minutes of critical care time, independent of procedures, was spent addressing the patient's acute hypoxemic respiratory failure, out of hospital V. fib cardiac arrest, questionable anoxic brain injury, review of all data and collaboration with the care team. Subjective Subjective Patient did okay overnight from a hemodynamic standpoint. Patient does remain on the ventilator. There was some concern about tube placement leading to multiple adjustments with x-rays. Patient has maintained her saturations throughout. Patient does continue to have a cough and gag reflex. Myoclonic jerking was improved with increased sedation. Patient continues to tolerate tube feeds. [facility] has been notified per nursing. Objective Data Objective Data Vital Signs: Vital Signs Temp Pulse Resp BP Pulse Ox O2 Del Method FiO2 37.9 C H 80 18 135/53 H 95 Mechanical Ventilator 25 08/26/21 07:00 08/26/21 07:02 08/26/21 07:02 08/26/21 07:00 08/26/21 07:02 08/26/21 07:00 08/26/21 07:00 Oxygen Delivery Method Mechanical Ventilator Weight: 98.8 kg Body Mass Index (BMI) 230414.4 Intake & Output: Intake and Output for Last 24 Hours 08/24/21 08/25/21 08/26/21 23:59 23:59 23:59 Intake Total 1402.47 / 1408.70 2727.72 / 2810.72 707.65 / 707.65 Output Total 680 / 680 990 / 990 0 / 0 Balance 722.47 / 728.70 1737.72 / 1820.72 707.65 / 707.65 Lab / Micro Data Attestation: I reviewed the patient's lab results. Result Diagrams: 08/26/21 02:45 08/26/21 02:45 Labs: Laboratory Results - last 24 hr 08/25/21 02:55: Phosphorus 2.9 08/25/21 11:49: POC Glucose 100 08/26/21 02:45: WBC 9.5, RBC 3.81 L, Hgb 11.6 L, Hct 35.6 L, MCV 93.4, MCH 30.4, MCHC 32.6, RDW Std Deviation 46.5 H, RDW Coeff of Dougie 13.7, Plt Count 155, MPV 11.3, Immature Gran % (Auto) 0.400, Neut % (Auto) 78.6 H, Lymph % (Auto) 10.9 L, [place] % (Auto) 8.9, Eos % (Auto) 1.0, Baso % (Auto) 0.2, Absolute Neuts (auto) 7.5, Absolute Lymphs (auto) 1.03, Nucleated RBC % 0 08/26/21 02:45: Sodium 142, Potassium 3.6, Chloride 113 H, Carbon Dioxide 23.0, Anion Gap 6, BUN 32 H, Creatinine 1.03 H, Estim Creat Clear Calc 38.90, Est GFR (MDRD) Af Amer 68, Est GFR (MDRD) Non-Af 57 L, BUN/Creatinine Ratio 31.1 H, Glucose 128 H, Calcium 8.7, Total Bilirubin 0.50, AST 72 H, ALT 68 H, Alkaline Phosphatase 63, Total Protein 5.6 L, Albumin 2.5 L, Globulin 3.1, Albumin/Globulin Ratio 0.8 L Micro: Microbiology 08/24/21 15:30 Sputum, Induced/Lukens Gram Stain - Final 08/24/21 15:30 Sputum, Induced/Lukens Respiratory Culture - Preliminary Appears to be normal respiratory guerita. Further studies to follow. 08/24/21 15:55 Nasal Secretion SARS-CoV-2 Antigen (Rapid) - Final ABG Data ABG results: ABG 08/26/21 07:08 Specimen Type ART Sample Site R Radial pH 7.40 Bicarbonate Actual 20.5 L Total CO2 22 Base Excess -4 L O2 Saturation 94 L O2 % 25 ABG pCO2 33.3 L ABG pO2 68 L J[place]quin Test Positive Respiration Rate 18 O2 Delivery Device Adult Vent Vent Mode AC/PC POC PEEP 5 Clinical Comments Attestation: I personally reviewed and interpreted this ABG as follows: Interpretation: Fully compensated metabolic acidosis with increased AA gradient Radiography Diagnostic Testing: Radiology Impression Chest X-Ray 08/25/21 06:05 IMPRESSION: Left lower lobe atelectasis with trace left pleural effusion. Endotracheal tube terminates 4.4 cm above the falguni. Electronically Signed: Fred Landis MD ([place]) at 10:44 EDT , Chest X-Ray 08/25/21 18:15 IMPRESSION: ET tube 4.8 cm above the falguni. Electronically Signed: Nicol Alejandre MD at 23:55 EDT Reading Location ID and State: [id number] / Tel , Service support , Chest X-Ray 08/25/21 20:22 IMPRESSION: Limited study. ET tube terminates 1.6 cm above the falguni. Electronically Signed: Nicol Alejandre MD at 21:59 EDT Reading Location ID and State: [place] / Tel , Service support , Chest X-Ray 08/25/21 22:13 IMPRESSION: ET tube in place. Electronically Signed: Nicol Alejandre MD at 23:37 EDT Reading Location ID and State: [place] / Tel , Service support , Rhythm Strip Rhythm Strip: Sinus Rhythm Rate: 83 Physical Exam Const Constitutional Narrative: Myoclonic jerking of the left facial and cervical area with stimulation only. General Appearance: intubated and patient mechanically ventilated Nutritional Appearance: obese HEENT normocephalic and head/scalp atraumatic Eyes PERRL and conjunctivae normal Neck supple General: trachea midline Chest inspection of chest normal Resp normal respiratory effort Auscultation: Negative for rales, rhonchi or wheezes Cardio regular rate, regular rhythm, S1 normal heart sound, S2 normal heart sound, no murmurs, no rub and no gallops GI normal to inspection, nondistended, normoactive bowel sounds Extremity no clubbing, cyanosis or edema Skin no rashes or lesions noted Neuro Neuro Narrative: The patient does initiate small tidal volume breaths on spontaneous mode mec hanical ventilation. She does demonstrate facial grimacing and appears uncomfortable with noxious stimulation and suctioning. Positive cough and gag reflexes. Psych Mood & Affect: flat affect Charges/Coding Procedures Hospitalists Procedures: 06533 Critial Care 1st Hr
--- NOTE | 2021-08-26 07:30 | PN.HOSP_ITS ---
Subjective Subjective Follow-up on acute hypoxic respite failure/acute cardiopulmonary arrest: Patient was seen and examined. She is running a low-grade temperature. Remains intubated. She is however able to go about the events. She has a gag reflex. She remains on propofol and fentanyl Objective Data Objective Data Vital Signs: Vital Signs Temp Pulse Resp BP Pulse Ox O2 Del Method FiO2 100.3 F H 80 18 135/53 H 95 Mechanical Ventilator 25 08/26/21 07:00 08/26/21 07:02 08/26/21 07:02 08/26/21 07:00 08/26/21 07:02 08/26/21 07:00 08/26/21 07:00 Oxygen Delivery Method Mechanical Ventilator Weight: 98.8 kg Body Mass Index (BMI) 931671.4 Intake & Output: Intake and Output for Last 24 Hours 08/24/21 08/25/21 08/26/21 23:59 23:59 23:59 Intake Total 1402.47 / 1408.70 2727.72 / 2810.72 707.65 / 707.65 Output Total 680 / 680 990 / 990 0 / 0 Balance 722.47 / 728.70 1737.72 / 1820.72 707.65 / 707.65 Lab / Micro Data Result Diagrams: 08/26/21 02:45 08/26/21 02:45 Labs: Laboratory Results - last 24 hr 08/25/21 02:55: Phosphorus 2.9 08/25/21 11:49: POC Glucose 100 08/26/21 02:45: WBC 9.5, RBC 3.81 L, Hgb 11.6 L, Hct 35.6 L, MCV 93.4, MCH 30.4, MCHC 32.6, RDW Std Deviation 46.5 H, RDW Coeff of Dougie 13.7, Plt Count 155, MPV 11.3, Immature Gran % (Auto) 0.400, Neut % (Auto) 78.6 H, Lymph % (Auto) 10.9 L, [place] % (Auto) 8.9, Eos % (Auto) 1.0, Baso % (Auto) 0.2, Absolute Neuts (auto) 7.5, Absolute Lymphs (auto) 1.03, Nucleated RBC % 0 08/26/21 02:45: Sodium 142, Potassium 3.6, Chloride 113 H, Carbon Dioxide 23.0, Anion Gap 6, BUN 32 H, Creatinine 1.03 H, Estim Creat Clear Calc 38.90, Est GFR (MDRD) Af Amer 68, Est GFR (MDRD) Non-Af 57 L, BUN/Creatinine Ratio 31.1 H, Glucose 128 H, Calcium 8.7, Total Bilirubin 0.50, AST 72 H, ALT 68 H, Alkaline Phosphatase 63, Total Protein 5.6 L, Albumin 2.5 L, Globulin 3.1, Albumin/Globulin Ratio 0.8 L Micro: Microbiology 08/24/21 15:30 Sputum, Induced/Lukens Gram Stain - Final 08/24/21 15:30 Sputum, Induced/Lukens Respiratory Culture - Preliminary Appears to be normal respiratory guerita. Further studies to follow. 08/24/21 15:55 Nasal Secretion SARS-CoV-2 Antigen (Rapid) - Final ABG Data ABG results: ABG 08/26/21 07:08 Specimen Type ART Sample Site R Radial pH 7.40 Bicarbonate Actual 20.5 L Total CO2 22 Base Excess -4 L O2 Saturation 94 L O2 % 25 ABG pCO2 33.3 L ABG pO2 68 L Juaquin Test Positive Respiration Rate 18 O2 Delivery Device Adult Vent Vent Mode AC/PC POC PEEP 5 Clinical Comments Radiography Diagnostic Testing: Radiology Impression Chest X-Ray 08/25/21 06:05 IMPRESSION: Left lower lobe atelectasis with trace left pleural effusion. Endotracheal tube terminates 4.4 cm above the falguni. Electronically Signed: Fred Landis MD ([place]) at 10:44 EDT , Chest X-Ray 08/25/21 18:15 IMPRESSION: ET tube 4.8 cm above the falguni. Electronically Signed: Nicol Alejandre MD at 23:55 EDT Reading Location ID and State: [id number] / Tel , Service support , Chest X-Ray 08/25/21 20:22 IMPRESSION: Limited study. ET tube terminates 1.6 cm above the falguni. Electronically Signed: Nicol Alejandre MD at 21:59 EDT Reading Location ID and State: [place] Tel , Service support , Chest X-Ray 08/25/21 22:13 IMPRESSION: ET tube in place. Electronically Signed: Nicol Alejandre MD at 23:37 EDT Reading Location ID and State: [place] Tel , Service support , Physical Exam Narrative Physical exam: General: Sedated, on mechanical ventilator HEENT: Atraumatic Oral: Moist Mucosa Neck: Supple Lungs: Diminished to auscultation Cardiovascular: HS I+II, regular, no murmurs Abdomen: Bowel Sounds Present, Soft, Non Tender Extremities: No edema Skin: No rashes, No breakdown Neurological: Grossly intact Psych/Mental Status: Appropriate Assessment & Plan Assessment/Plan (1) Cardiopulmonary arrest: (2) Respiratory failure: (3) Elevated troponin: (4) Elevated serum creatinine: (5) Hyperglycemia: (6) Rib fractures: PLAN: Plan 1. Acute cardiopulmonary arrest, status post CPR; patient remains intubated, Patient with some brainstem function; EEG showed severe diffuse bihemispheric cerebral dysfunction MRI brain is pending Electric[employer] following. SOC Tele-neurology consulted. 2. Acute hypoxic respiratory failure secondary to #1, remains intubated 3. Myoclonus, appears resolved, on propofol and fentanyl 4. Elevated troponins secondary to CPR, cardiac cath is unremarkable 2D-ECHO pending 4. Acute rib fractures, s/p CPR, nondisplaced, 5th and 6th anterior rib fractures 5. Elevated transaminitis secondary to #1, levels are slightly improved 6. Hypertension, fairly uncontrolled, continue to monitor, hydralazine as needed 7. GERD, continue PPI 8. DVT PPx - Lovenox SC Charges/Coding Visit Charges Inpatient E&M: 58811 Subs Hosp L3
--- NOTE | 2021-08-26 07:39 | PN.CARD_ITS ---
Subjective Subjective Patient seen and evaluated. Status quo. Objective Data Vital Signs: Vital Signs Temp Pulse Resp BP Pulse Ox O2 Del Method FiO2 100.3 F H 80 18 135/53 H 95 Mechanical Ventilator 25 08/26/21 07:00 08/26/21 07:02 08/26/21 07:02 08/26/21 07:00 08/26/21 07:02 08/26/21 07:00 08/26/21 07:00 Oxygen Delivery Method Mechanical Ventilator Weight: 217 lb 13.067 oz Body Mass Index (BMI) 144347.4 Intake & Output: Intake and Output for Last 24 Hours 08/24/21 08/25/21 08/26/21 23:59 23:59 23:59 Intake Total 1402.47 / 1408.70 2727.72 / 2810.72 707.65 / 707.65 Output Total 680 / 680 990 / 990 0 / 0 Balance 722.47 / 728.70 1737.72 / 1820.72 707.65 / 707.65 Lab / Micro Data Result Diagrams: 08/26/21 02:45 08/26/21 02:45 Labs: Laboratory Results - last 24 hr 08/25/21 02:55: Phosphorus 2.9 08/25/21 11:49: POC Glucose 100 08/26/21 02:45: WBC 9.5, RBC 3.81 L, Hgb 11.6 L, Hct 35.6 L, MCV 93.4, MCH 30.4, MCHC 32.6, RDW Std Deviation 46.5 H, RDW Coeff of Dougie 13.7, Plt Count 155, MPV 11.3, Immature Gran % (Auto) 0.400, Neut % (Auto) 78.6 H, Lymph % (Auto) 10.9 L, [place] % (Auto) 8.9, Eos % (Auto) 1.0, Baso % (Auto) 0.2, Absolute Neuts (auto) 7.5, Absolute Lymphs (auto) 1.03, Nucleated RBC % 0 08/26/21 02:45: Sodium 142, Potassium 3.6, Chloride 113 H, Carbon Dioxide 23.0, Anion Gap 6, BUN 32 H, Creatinine 1.03 H, Estim Creat Clear Calc 38.90, Est GFR (MDRD) Af Amer 68, Est GFR (MDRD) Non-Af 57 L, BUN/Creatinine Ratio 31.1 H, Glucose 128 H, Calcium 8.7, Total Bilirubin 0.50, AST 72 H, ALT 68 H, Alkaline Phosphatase 63, Total Protein 5.6 L, Albumin 2.5 L, Globulin 3.1, Albumin/Globulin Ratio 0.8 L Micro: Microbiology 08/24/21 15:30 Sputum, Induced/Lukens Gram Stain - Final 08/24/21 15:30 Sputum, Induced/Lukens Respiratory Culture - Preliminary Appears to be normal respiratory guerita. Further studies to follow. ABG Data ABG results: ABG 08/26/21 07:08 Specimen Type ART Sample Site R Radial pH 7.40 Bicarbonate Actual 20.5 L Total CO2 22 Base Excess -4 L O2 Saturation 94 L O2 % 25 ABG pCO2 33.3 L ABG pO2 68 L Juaquin Test Positive Respiration Rate 18 O2 Delivery Device Adult Vent Vent Mode AC/PC POC PEEP 5 Clinical Comments Rhythm Strip Rhythm Strip: Sinus Rhythm Rate: 83 Cardiology Labs/Tests 08/25/21 02:55: Phosphorus 2.9 08/26/21 02:45: WBC 9.5, RBC 3.81 L, Hgb 11.6 L, Hct 35.6 L, MCV 93.4, MCH 30.4, MCHC 32.6, Plt Count 155, MPV 11.3, Immature Gran % (Auto) 0.400, Neut % (Auto) 78.6 H, Lymph % (Auto) 10.9 L, [place] % (Auto) 8.9, Eos % (Auto) 1.0, Baso % (Auto) 0.2, Absolute Neuts (auto) 7.5, Nucleated RBC % 0 08/26/21 02:45: Sodium 142, Potassium 3.6, Chloride 113 H, Carbon Dioxide 23.0, Anion Gap 6, BUN 32 H, Creatinine 1.03 H, Est GFR (MDRD) Af Amer 68, Est GFR (MDRD) Non-Af 57 L, BUN/Creatinine Ratio 31.1 H, Glucose 128 H, Calcium 8.7, Total Bilirubin 0.50 08/26/21 07:08: pH 7.40, Bicarbonate Actual 20.5 L, Base Excess -4 L, O2 Saturation 94 L, ABG pCO2 33.3 L, ABG pO2 68 L, Juaquin Test Positive Rhythm: EKG: ECHO: Stress Test: Cardiac Cath: PCI: CT Surgery: Holter monitor: EPS: PPM: CXR: Chest CT Scan: Radiography Diagnostic Testing: Radiology Impression Chest X-Ray 08/25/21 06:05 IMPRESSION: Left lower lobe atelectasis with trace left pleural effusion. Endotracheal tube terminates 4.4 cm above the falguni. Electronically Signed: Fred Landis MD ([place]) at 10:44 EDT , Chest X-Ray 08/25/21 18:15 IMPRESSION: ET tube 4.8 cm above the falguni. Electronically Signed: Nicol Alejandre MD at 23:55 EDT Reading Location ID and State: [id number] / Tel , Service support , Chest X-Ray 08/25/21 20:22 IMPRESSION: Limited study. ET tube terminates 1.6 cm above the falguni. Electronically Signed: Nicol Alejandre MD at 21:59 EDT Reading Location ID and State: [place] MD Tel , Service support , Chest X-Ray 08/25/21 22:13 IMPRESSION: ET tube in place. Electronically Signed: Nicol Alejandre MD at 23:37 EDT Reading Location ID and State: [place] MD Tel , Service support , Physical Exam Const Constitutional Narrative: Myoclonic jerking of the left facial and cervical area with stimulation only. General Appearance: intubated and patient mechanically ventilated Nutritional Appearance: obese HEENT normocephalic and head/scalp atraumatic Eyes PERRL and conjunctivae normal Neck supple General: trachea midline Chest inspection of chest normal Resp normal respiratory effort Auscultation: Negative for rales, rhonchi or wheezes Cardio regular rate, regular rhythm, S1 normal heart sound, S2 normal heart sound, no murmurs, no rub and no gallops GI normal to inspection, nondistended, normoactive bowel sounds Extremity no clubbing, cyanosis or edema Skin no rashes or lesions noted Neuro Neuro Narrative: The patient does initiate small tidal volume breaths on spontaneous mode mechanical ventilation. She does demonstrate facial grimacing and appears uncomfortable with noxious stimulation and suctioning. Positive cough and gag reflexes. Assessment & Plan Assessment/Plan (1) Cardiopulmonary arrest: PLAN: The etiology of the above is not clear at this particular time. There does not appear to be any obvious cardiac reason for this. Her ejection fraction is normal and her coronary arteries does not demonstrate any significant obstruction. The cardiac arrhythmia cannot be completely excluded. The troponin elevation is likely secondary to the severe hypoxia and the CPR. Will await further recovery from the neurologic standpoint. We will sign off at this time. Please reconsult as necessary. Thank you for allowing me to participate in the care of your patient. Please don't hesitate to call if any issues arise.
--- NOTE | 2021-08-26 08:10 | CPS ---
Patient placed on MRI Transport Vent to acclimate, RN aware. Vt set around 400, pressure at 24, rate around 16-18, peep of 5, 65% FiO2. PIP was around 21 and sat of 96. Patient tolerated well. Switched back to 980 Vent at 0840.
[2021-08-26] MEDS: Chlorhexidine 15 ML PO ×2 (08:38→21:00)
[2021-08-26] MEDS: Enoxaparin 40 MG/0.4 ML Syringe SC (08:38)
--- NOTE | 2021-08-26 09:41 | NURSING ---
sedation medications and tube feed placed on hold at this time for MRI. Pt transported to MRI with RT and Cate window tinter.
--- NOTE | 2021-08-26 09:56 | CASEMGMT ---
RN CM NOTE: Pt remains intubated, nonresponsive, and with no purposeful or meaningful interaction per MD note. RN CM assessment deferred at this time. [place] SIMSN RN CM
[2021-08-26] MEDS: Acetaminophen 650 MG/20 ML UDC GT (11:34)
[2021-08-26] MEDS: 0.9% Saline Lock 10 ML Syringe IV (11:35)
[2021-08-26] MEDS: Vital AF 1.2 Cal Liquid 1,000 ML 55 ML GT (14:19)
[2021-08-26] MEDS: Propofol 10MG/Ml 1,000 MG/100 ML Bottle 17.8 MG CONT INF ×2 (16:18→21:10)
--- NOTE | 2021-08-26 16:19 | CHAPLAIN ---
Type of Pastoral Visit _x__ Initial Visit ___ Follow-up Visit ___ On-call Visit ___ General Patient Visit ___ Spiritual Assessment ___ Family Conference ___ Bereavement ___ Rapid Response ___ Code Blue ___ Other (describe below) Pastoral Care Referral From ___ Patient _x__ Family ___ Nurse ___ Physician ___ Instructional Design Specialist ___ Nurse Orthopaedic ___ Other (describe below) Sacrament/Intervention _x__ Active listening ___ Anointing ___ Anabaptist ___ Bereavement ___ Communion ___ [place] exploration ___ ___ Life review _x__ Prayer ___ Reconciliation ___ Sacrament of Sick _x__ Supportive presence ___ Wedding ___ Other (describe below) Pastoral Comments met with two brothers and a sister of patient; patient is unresponsive; patient is ; siblings state that they are waiting for more information from MRI and from doctor evaluation; siblings state we have never been in this situation before and are not sure what to expect; affirmation of siblings presence in room for patient, the right to ask questions, and the ongoing offer of support through presence and prayer by this business management specialist; brother requests prayer for patient; pt was raised Roman Catholic but is said to be non practicing
[2021-08-26] MEDS: LORazepam 2 MG/ML Syringe IV (19:00)
[2021-08-27] VITALS (32 sets, daily range): BP systolic 109–139; BP diastolic 47–73; PULSE 85–102; RESP 15–29; TEMP 37.5–38; O2SAT 89–97
[2021-08-27] MEDS: Propofol 10MG/Ml 1,000 MG/100 ML Bottle 20.7 MG CONT INF (00:31)
[2021-08-27] MEDS: Propofol 10MG/Ml 1,000 MG/100 ML Bottle 23.7 MG CONT INF ×5 (04:26→19:00)
[2021-08-27 04:42] LABS: Absolute Lymphocyte Count 1.05 X10^3/uL (0.83-4.51); Absolute Neutrophil Count 5.8 X10^3/uL (2.0-7.7); Basophil# 0.02 X10^3/uL; Basophil% 0.3 % (0-1); Eosinophil# 0.26 X10^3/uL; Eosinophils% 3.3 % (0-5); Hematocrit 35.7 % (37-47); Hemoglobin 11.4 g/dL (12.0-15.0); Lymphocyte # 1.05 X10^3/ul (0.83-4.51); Lymphocyte % 13.3 % (19-41); Mean Corp Hgb Conc 31.9 g/dL (32-36); Mean Corpuscular Hgb 30.2 pg (27.0-32.0); Mean Corpuscular Volume 94.4 fL (81-99); Mean Platelet Vol. 11.2 fl (6.2-12.0); Monocyte# 0.67 X10^3/uL; Monocyte% 8.5 % (0-10); NRBC Flagged by Analyzer 0 % (0-5); Neutrophil # 5.83 X10^3/uL (2.7-7.7); Neutrophil % 73.7 % (47-70); Platelet Count 162 K/mm3 (150-450); RBC Distribution Width CV 13.5 % (11.6-14.6); RBC Distribution Width SD 47.1 fl (35.1-43.9); Red Blood Count 3.78 M/mm3 (4.2-5.4); White Blood Count 7.9 K/mm3 (4.4-11.0)
--- NOTE | 2021-08-27 06:46 | PN.CC_ITS ---
Assessment & Plan Assessment/Plan (1) Respiratory failure: (2) Cardiopulmonary arrest: PLAN: Plan RECOMMENDATIONS: 1. Continue pressure control mode mechanical ventilation. Wean FiO2 for saturations greater than 90%. 2. Limit sedation as tolerated. 3. Continue Keppra as ordered. 4. Await neurology recommendations 5. Family meeting to discuss goals of therapy. Nursing aware 6. [facility] being updated by nursing 7. Continue appropriate ICU prophylaxis. 8. Continue tube feeds IMPRESSIONS: 1. Acute hypoxemic respiratory failure in the setting of out of hospital cardiac arrest Unclear precipitating etiology. Possible benzo overdose. Both cardiac catheterization and CTA chest were unrevealing. ABG is appropriate at this time. Plan to continue assist-control mode of mechanical ventilation and wean FiO2 for saturations greater than 90%. I would recommend limiting sedation as tolerated to best assess the patient's underlying neurologic status. The patient does appear to have infiltrates on her chest imaging. Anticipate completion of 7 days of antibiotics 2. Probable anoxic brain injury The patient is demonstrating myoclonic jerking on examination. However, she does initiate spontaneous breaths and does appear to respond to noxious s timulation. Accordingly, EEG has been completed showing severe anoxic injury. Recommend obtaining neurology consultation. In the interim, attempt to limit sedation as tolerated. Continue Keppra as ordered. Patient does have reflexes, so brain will not be initiated. Previous ABG showed current settings are adequate. Patient does have spinal reflexes 72 hours after presentation. Low clinical suspicion for progression to brain . Cannot exclude devastating anoxic injuries. Will attempt to arrange a family meeting to discuss goals of therapy. 3. Mild transaminitis/hypertension/GERD/hyperlipidemia/obesity Complicates care, management, recovery and prognosis. Continue supportive measures as noted above. TIME: 32 minutes of critical care time, independent of procedures, was spent addressing the patient's acute hypoxemic respiratory failure, out of hospital V. fib cardiac arrest, questionable anoxic brain injury, review of all data and collaboration with the care team. Subjective Subjective Patient did okay overnight from a hemodynamic standpoint. Patient remains on 30% FiO2 with good saturations. Patient did have to be initiated on propofol and fentanyl secondary to continued myoclonus and hypoxia. Patient is having spontaneous respirations, cough and gag at this time. Patient is not responding to loud stimulus and has myoclonus to noxious stimulus. No spontaneous movement noted. Objective Data Objective Data Vital Signs: Vital Signs Temp Pulse Resp BP Pulse Ox O2 Del Method O2 Flow Rate 37.6 C H 86 21 H 126/56 H 93 Mechanical Ventilator 3 08/27/21 04:00 08/27/21 04:46 08/27/21 04:46 08/27/21 04:00 08/27/21 04:46 08/27/21 04:00 08/26/21 17:00 FiO2 30 08/27/21 04:00 Oxygen Flow Rate (L/min) 3 Oxygen Delivery Method Mechanical Ventilator Weight: 99.1 kg Body Mass Index (BMI) 571821.4 Intake & Output: Intake and Output for Last 24 Hours 08/25/21 08/26/21 08/27/21 23:59 23:59 23:59 Intake Total 2727.72 / 2810.72 2787.30 / 3155.00 907.97 / 907.97 Output Total 990 / 990 120 / 135 15 / 15 Balance 1737.72 / 1820.72 2667.30 / 3020.00 892.97 / 892.97 Lab / Micro Data Attestation: I reviewed the patient's lab results. Result Diagrams: 08/27/21 04:15 08/26/21 02:45 Labs: Laboratory Results - last 24 hr 08/27/21 04:15: WBC 7.9, RBC 3.78 L, Hgb 11.4 L, Hct 35.7 L, MCV 94.4, MCH 30.2, MCHC 31.9 L, RDW Std Deviation 47.1 H, RDW Coeff of Dougie 13.5, Plt Count 162, MPV 11.2, Immature Gran % (Auto) 0.900, Neut % (Auto) 73.7 H, Lymph % (Auto) 13.3 L, [place] % (Auto) 8.5, Eos % (Auto) 3.3, Baso % (Auto) 0.3, Absolute Neuts (auto) 5.8, Absolute Lymphs (auto) 1.05, Nucleated RBC % 0 Micro: Microbiology 08/24/21 15:08 Blood Culture (Wb) - Right Hand Blood Culture - Preliminary No growth in 48 hours. 08/24/21 14:45 Blood Culture (Wb) - Left Hand Blood Culture - Preliminary No growth in 48 hours. 08/24/21 15:30 Sputum, Induced/Lukens Gram Stain - Final 08/24/21 15:30 Sputum, Induced/Lukens Respiratory Culture - Preliminary Appears to be normal respiratory guerita. Further studies to follow. 08/24/21 15:55 Nasal Secretion SARS-CoV-2 Antigen (Rapid) - Final ABG Data ABG results: ABG 08/26/21 07:08 Specimen Type ART Sample Site R Radial pH 7.40 Bicarbonate Actual 20.5 L Total CO2 22 Base Excess -4 L O2 Saturation 94 L O2 % 25 ABG pCO2 33.3 L ABG pO2 68 L Juaquin Test Positive Respiration Rate 18 O2 Delivery Device Adult Vent Vent Mode AC/PC POC PEEP 5 Clinical Comments Radiography Diagnostic Testing: Radiology Impression Echocardiogram 08/24/21 14:14 Interpretation Summary Normal LV size. Left ventricular systolic function is normal. The estimated ejection fraction is 55 %. Stage 1 diastolic dysfunction. Contrast injection was performed. Ordering Physician: Angela Milian Referring Physician: Gianni Dempsey Performed By: Elizabeth Stroud RCS Brain MRI 08/26/21 06:55 IMPRESSION: 1. 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 Electronically Signed: Kaushal Oliva MD at 12:01 EDT , ADDENDUM: 08/26/21 1248 IMPRESSION: 1. 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 N.B. : Lina Olivares;[phone], WALKER, confirmed on 08/26/2021 12:41:40 (ET) that the healthcare facility has received the radiology report. Electronically Signed: Kaushal Oliva MD at 12:01 EDT , Rhythm Strip Rhythm Strip: Sinus Rhythm Rate: 94 Ectopy: None Physical Exam Const Constitutional Narrative: Myoclonic jerking of the left facial and cervical area with stimulation only. General Appearance: intubated and patient mechanically ventilated Nutritional Appearance: obese HEENT normocephalic and head/scalp atraumatic Eyes PERRL and conjunctivae normal Neck supple General: trachea midline Chest inspection of chest normal Resp normal respiratory effort Auscultation: Negative for rales, rhonchi or wheezes Cardio regular rate, regular rhythm, S1 normal heart sound, S2 normal heart sound, no murmurs, no rub and no gallops GI normal to inspection, nondistended, normoactive bowel sounds Extremity no clubbing, cyanosis or edema Skin no rashes or lesions noted Neuro Neuro Narrative: The patient does initiate small tidal volume breaths (200 cc) on spontaneous mo de mechanical ventilation. She does demonstrate facial grimacing and predominantly left facial myoclonus with noxious stimulation and suctioning. Positive cough and gag reflexes. Psych Mood & Affect: flat affect Charges/Coding Procedures Hospitalists Procedures: 84553 Critial Care 1st Hr
--- NOTE | 2021-08-27 07:11 | PN.HOSP_ITS ---
Subjective Subjective Follow-up on acute hypoxic respite failure/acute cardiopulmonary arrest: Patient was seen and examined.?Continues to have myoclonic jerks especially with stimulation. Fentanyl drip was stopped briefly;resumed back on. She was continued on propofol. Her vitals have remained stable. Sputum cultures are negative. Blood cultures are negative. Objective Data Objective Data Vital Signs: Vital Signs Temp Pulse Resp BP Pulse Ox O2 Del Method O2 Flow Rate 99.6 F H 90 17 119/55 L 95 Mechanical Ventilator 3 08/27/21 07:00 08/27/21 07:00 08/27/21 07:00 08/27/21 07:00 08/27/21 07:00 08/27/21 07:00 08/26/21 17:00 FiO2 30 08/27/21 07:00 Oxygen Flow Rate (L/min) 3 Oxygen Delivery Method Mechanical Ventilator Weight: 99.1 kg Body Mass Index (BMI) 939834.4 Intake & Output: Intake and Output for Last 24 Hours 08/25/21 08/26/21 08/27/21 23:59 23:59 23:59 Intake Total 2727.72 / 2810.72 2787.30 / 3155.00 960.37 / 960.37 Output Total 990 / 990 120 / 135 15 / 15 Balance 1737.72 / 1820.72 2667.30 / 3020.00 945.37 / 945.37 Lab / Micro Data Result Diagrams: 08/27/21 04:15 08/27/21 04:15 Labs: Laboratory Results - last 24 hr 08/27/21 04:15: WBC 7.9, RBC 3.78 L, Hgb 11.4 L, Hct 35.7 L, MCV 94.4, MCH 30.2, MCHC 31.9 L, RDW Std Deviation 47.1 H, RDW Coeff of Dougie 13.5, Plt Count 162, MPV 11.2, Immature Gran % (Auto) 0.900, Neut % (Auto) 73.7 H, Lymph % (Auto) 13.3 L, [place] % (Auto) 8.5, Eos % (Auto) 3.3, Baso % (Auto) 0.3, Absolute Neuts (auto) 5.8, Absolute Lymphs (auto) 1.05, Nucleated RBC % 0 Micro: Microbiology 08/24/21 15:08 Blood Culture (Wb) - Right Hand Blood Culture - Preliminary No growth in 48 hours. 08/24/21 14:45 Blood Culture (Wb) - Left Hand Blood Culture - Preliminary No growth in 48 hours. 08/24/21 15:30 Sputum, Induced/Lukens Gram Stain - Final 08/24/21 15:30 Sputum, Induced/Lukens Respiratory Culture - Preliminary Appears to be normal respiratory guerita. Further studies to follow. 08/24/21 15:55 Nasal Secretion SARS-CoV-2 Antigen (Rapid) - Final ABG Data ABG results: ABG 08/26/21 07:08 Specimen Type ART Sample Site R Radial pH 7.40 Bicarbonate Actual 20.5 L Total CO2 22 Base Excess -4 L O2 Saturation 94 L O2 % 25 ABG pCO2 33.3 L ABG pO2 68 L Juaquin Test Positive Respiration Rate 18 O2 Delivery Device Adult Vent Vent Mode AC/PC POC PEEP 5 Clinical Comments Radiography Diagnostic Testing: Radiology Impression Echocardiogram 08/24/21 14:14 Interpretation Summary Normal LV size. Left ventricular systolic function is normal. The estimated ejection fraction is 55 %. Stage 1 diastolic dysfunction. Contrast injection was performed. Ordering Physician: Angela Milian Referring Physician: Gianni Dempsey Performed By: Elizabeth Stroud RCS Brain MRI 08/26/21 06:55 IMPRESSION: 1. 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 Electronically Signed: Kaushal Oliva MD at 12:01 EDT , ADDENDUM: 08/26/21 1248 IMPRESSION: 1. 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 N.B. : Lina Olivares;[phone], WALKER, confirmed on 08/26/2021 12:41:40 (ET) that the healthcare facility has received the radiology report. Electronically Signed: Kaushal Oliva MD at 12:01 EDT , Rhythm Strip Rhythm Strip: Sinus Rhythm Rate: 94 Ectopy: None Physical Exam Narrative Physical exam: General: Sedated, on mechanical ventilator HEENT: Atraumatic Oral: Moist Mucosa Neck: Supple Lungs: Diminished to auscultation Cardiovascular: HS I+II, regular, no murmurs Abdomen: Bowel Sounds Present, Soft, Non Tender Extremities: No edema Skin: No rashes, No breakdown Neurological: Grossly intact Psych/Mental Status: Appropriate Assessment & Plan Assessment/Plan (1) Cardiopulmonary arrest: (2) Respiratory failure: (3) Elevated troponin: (4) Elevated serum creatinine: (5) Hyperglycemia: (6) Rib fractures: PLAN: Plan 1. Acute cardiopulmonary arrest, status post CPR; patient remains intubated, Patient with some brainstem function; EEG showed severe diffuse bihemispheric cerebral dysfunction MRI brain showed mild to moderate bilateral occipital/parietal and posterior regions of the bilateral frontal lobe hypoxic ischemic changes. Employee Communications Manager and SOC Tele-neurology consulted. 2. Acute hypoxic respiratory failure secondary to #1, remains intubated 3. Myoclonus secondary to #1, appears stable on fentanyl and propofol 4. Elevated troponins secondary to CPR, cardiac cath is unremarkable 2D-ECHO shows EF 55%, stage I diastolic dysfunction 5. Acute rib fractures, s/p CPR, nondisplaced, 5th and 6th anterior rib fractures 6. Elevated transaminitis secondary to #1, levels are slightly improved 7. Hypertension, controlled, continue to monitor, hydralazine as needed 8. GERD, continue PPI 9. DVT PPx - Lovenox SC Charges/Coding Visit Charges Inpatient E&M: 77018 Subs Hosp L2
[2021-08-27] MEDS: Chlorhexidine 15 ML PO ×2 (07:35→20:27)
[2021-08-27] MEDS: CHLORHEXIDINE GLUC 2% CLOTH 1 EACH TOWELETTE TOPICAL (07:51)
[2021-08-27] MEDS: Enoxaparin 40 MG/0.4 ML Syringe SC (07:51)
[2021-08-27 08:02] LABS: ALB/GLOB Ratio 0.7 RATIO (0.9-2.4); AST(SGOT) 61 U/L (15-37); Alanine Aminotransfer ALT/SGPT 55 U/L (13-56); Albumin, Serum 2.5 g/dL (3.2-5.0); Alkaline Phosphatase 73 U/L (45-117); Anion Gap 5 (5-15); BUN 25 mg/dL (7-18); BUN/Creat Ratio 26.3 RATIO (10-20); Calcium,Total 8.7 mg/dL (8.5-10.1); Chloride 111 mmol/L (98-107); Creatinine, Serum 0.95 mg/dL (0.55-1.02); EST Glomerular Filtration Rate 62 mL/min (>60); Est Glom Filt Rate - Afr Amer 75 mL/min (>60); Estimated Creatinine Clearance 42.17 ml/min; Globulin 3.5 g/dL (2.2-4.2); Glucose 132 mg/dL (74-106); Potassium 3.7 mmol/L (3.5-5.1); Sodium Level 141 mmol/L (136-145)
[2021-08-27] MEDS: Vital AF 1.2 Cal Liquid 1,000 ML 55 ML GT (08:04)
--- NOTE | 2021-08-27 10:50 | CASEMGMT ---
WALKER BONILLA met with family for initial transition planning/care coordination assessment as patient is currently on ventilator. WALKER BONILLA introduced self and role at [facility]. Family willing to participate in assessment and is able to answer all questions appropriately. Family present is brothers Forrest and Joshua with Sister Loli. Care providers, pharmacy, and demographics verified. Family met with hospitalist and plant custodian to discuss care options. Family asking questions regarding levels of care for patient. RN IRENE explained levels of care and reinforced options that were provided by doctors. Family state they has no further needs or concerns at this time. CM to follow for discharge planning needs that may arise. PCP: [facility] Specialists: Family not aware of any specialist Preferred Pharmacy: Family unsure of preferred pharmacy, usually gets meds mail ordered Insurance: M[facility] Prescription Benefit: yes Living Will/HPOA: family unaware of advance directives. LNOK: Patient has 5 siblings from oldest to youngest 1. Jt 2. Jaspreet 3. Joshua 4. Loli 5. Forrest Living Arrangements: Patient lives alone in a first floor condo with 1 step or ramp to enter. Per family, patient was independent at home prior to current illness Transportation: self, siblings DME/HHC: Per family they are unaware of any DME in the home. No previous HHC or SNF. Disposition Plan: TBD by course of treatment. Family to discuss levels of care and options. Evelia OLIVEROS, RN, CM
--- NOTE | 2021-08-27 11:00 | CHAPLAIN ---
Type of Pastoral Visit ___ Initial Visit ___ Follow-up Visit ___ On-call Visit ___ General Patient Visit ___ Spiritual Assessment _x__ Family Conference ___ Bereavement ___ Rapid Response ___ Code Blue ___ Other (describe below) Pastoral Care Referral From ___ Patient ___ Family _x__ Nurse ___ Physician ___ Technical Sales Representative ___ Shoe Ironer ___ Other (describe below) Sacrament/Intervention _x__ Active listening ___ Anointing ___ Sikhism ___ Bereavement ___ Communion ___ [place] exploration ___ ___ Life review _x__ Prayer ___ Reconciliation ___ Sacrament of Sick _x__ Supportive presence ___ Wedding ___ Other (describe below) Pastoral Comments immediately after family conference with Gwendolyn and RN, the RN notified this director of student financial services of need for support and prayer for family that is required to make medical decisions of life consequence for the patient who is intubated; sat with family as they processed thoughts and feelings; family is tearful; these three siblings also have two more brothers that they want to consult before a final decision is made; these siblings are next of kin; situation for patient is grave; family is still in shock over events as they describe their sister as the active one among us; brother asks for prayer; presence, time, support, and prayer given; offer of ongoing presence and support to family is given
--- NOTE | 2021-08-27 14:17 | CASEMGMT ---
RN CM requested by family to discuss care. RN CM reinforced options that were presented by Dr. Vela and Dr. Stern. RN CM answered question regarding different levels of care including hospice and LTACH. RN CM provided emotional support to family. CM remains available to family for further support.
[2021-08-27] MEDS: Propofol 10MG/Ml 1,000 MG/100 ML Bottle 29.6 MG CONT INF (22:20)
[2021-08-28] VITALS (35 sets, daily range): BP systolic 105–138; BP diastolic 47–68; PULSE 76–92; RESP 12–407; TEMP 36.9–37.9; O2SAT 91–94
[2021-08-28] MEDS: Propofol 10MG/Ml 1,000 MG/100 ML Bottle 29.6 MG CONT INF ×3 (01:43→06:49)
[2021-08-28] MEDS: Vital AF 1.2 Cal Liquid 1,000 ML 55 ML GT ×2 (02:15→20:26)
--- NOTE | 2021-08-28 05:55 | NURSING ---
0220- temperature randall catheter exchanged at this time d/t leaking. 1120 mL fiona urine drained immediately after placement.
--- NOTE | 2021-08-28 06:49 | PCM.PN.INT ---
Assessment & Plan Assessment/Plan (1) Respiratory failure: (2) Cardiopulmonary arrest: PLAN: Plan RECOMMENDATIONS: 1. Continue pressure control mode mechanical ventilation. Wean FiO2 for saturations greater than 90%. 2. Limit sedation as tolerated. 3. Continue Keppra as ordered. 4. Could consider repeat consultation with neurology if family requests 5. Await results of family meeting to discuss goals of therapy. Nursing aware 6. [employer] has signed off indicating donation is not anticipated 7. Continue appropriate ICU prophylaxis. 8. Possible palliative measures later today IMPRESSIONS: 1. Acute hypoxemic respiratory failure in the setting of out of hospital cardiac arrest Unclear precipitating etiology. Possible benzo overdose. Both cardiac catheterization and CTA chest were unrevealing. ABG is appropriate at this time. Plan to continue assist-control mode of mechanical ventilation and wean FiO2 for saturations greater than 90%. Patient's myoclonic jerking has limited the ability to decrease sedation. Unclear if patient will protect her airway on extubation. 2. Probable anoxic brain injury The patient is demonstrating myoclonic jerking on examination. However, she does initiate spontaneous breaths and does appear to respond to noxious stimulation. Accordingly, EEG has been completed showing severe anoxic injury. Recommend obtaining neurology consultation. In the interim, attempt to limit sedation as tolerated. Continue Keppra as ordered. Patient will likely not progress to brain . Patient has had an EEG stating no status epilepticus. Could consider discontinuation of sedation, but concerns that myoclonus will be distressing for the family. Extended conversation yesterday about the grim prognosis. Awaiting response/decision 3. Mild transaminitis/hypertension/GERD/hyperlipidemia/obesity Complicates care, management, recovery and prognosis. Continue supportive measures as noted above. TIME: 34 minutes of critical care time, independent of procedures, was spent addressing the patient's acute hypoxemic respiratory failure, out of hospital V. fib cardiac arrest, questionable anoxic brain injury, review of all data and collaboration with the care team. Subjective Subjective Patient did okay overnight from a hemodynamic standpoint. Patient continues to have spinal reflexes, no myoclonic jerking is noted with any decrease in sedation. Meeting yesterday with sister and 2 brothers for over 60 minutes. Multiple options for proceeding including trach and PEG, extubation with no reintubation and palliative extubation were all reviewed. Family also had extensive conversation with case management with similar results. Objective Data Objective Data Vital Signs: Vital Signs Temp Pulse Resp BP Pulse Ox O2 Del Method O2 Flow Rate 36.9 C 85 15 118/62 91 Mechanical Ventilator 3 08/28/21 04:00 08/28/21 06:00 08/28/21 06:00 08/28/21 06:00 08/28/21 06:00 08/28/21 06:00 08/26/21 17:00 FiO2 30 08/28/21 06:00 Oxygen Flow Rate (L/min) 3 Oxygen Delivery Method Mechanical Ventilator Weight: 102.9 kg Body Mass Index (BMI) 101367.4 Intake & Output: Intake and Output for Last 24 Hours 08/26/21 08/27/21 08/28/21 23:59 23:59 23:59 Intake Total 2787.30 / 3155.00 3999.97 / 4039.57 1305.31 / 1305.31 Output Total 120 / 135 110 / 110 1375 / 1375 Balance 2667.30 / 3020.00 3889.97 / 3929.57 -69.69 / -69.69 Lab / Micro Data Lab results narrative: Downtime overnight. Laboratory data from today was reviewed. Hemoglobin and white blood cell count remained stable. There is no signs of renal dysfunction noted and potassium is acceptable. Result Diagrams: 08/27/21 04:15 08/27/21 04:15 Labs: Laboratory Results - last 24 hr 08/27/21 04:15: Sodium 141, Potassium 3.7, Chloride 111 H, Carbon Dioxide 25.0, Anion Gap 5, BUN 25 H, Creatinine 0.95, Estim Creat Clear Calc 42.17, Est GFR (MDRD) Af Amer 75, Est GFR (MDRD) Non-Af 62, BUN/Creatinine Ratio 26.3 H, Glucose 132 H, Calcium 8.7, Total Bilirubin 0.40, AST 61 H, ALT 55, Alkaline Phosphatase 73, Total Protein 6.0 L, Albumin 2.5 L, Globulin 3.5, Albumin/Globulin Ratio 0.7 L Micro: Microbiology 08/24/21 15:30 Sputum, Induced/Lukens Gram Stain - Final 08/24/21 15:30 Sputum, Induced/Lukens Respiratory Culture - Final 08/24/21 15:08 Blood Culture (Wb) - Right Hand Blood Culture - Preliminary No growth in 48 hours. 08/24/21 14:45 Blood Culture (Wb) - Left Hand Blood Culture - Preliminary No growth in 48 hours. 08/24/21 15:55 Nasal Secretion SARS-CoV-2 Antigen (Rapid) - Final Rhythm Strip Rhythm Strip: Sinus Rhythm Rate: 86 Ectopy: None Physical Exam Const Constitutional Narrative: Less myoclonic jerking of the left facial and cervical area with stimulation only, but on propofol at 50 mics. General Appearance: intubated and patient mechanically ventilated Nutritional Appearance: obese HEENT normocephalic and head/scalp atraumatic Eyes PERRL and conjunctivae normal Neck supple General: trachea midline Chest inspection of chest normal Resp normal respiratory effort Auscultation: Negative for rales, rhonchi or wheezes Cardio regular rate, regular rhythm, S1 normal heart sound, S2 normal heart sound, no murmurs, no rub and no gallops GI normal to inspection, nondistended, normoactive bowel sounds Extremity no clubbing, cyanosis or edema Skin no rashes or lesions noted Neuro Neuro Narrative: The patient does initiate small tidal volume breaths (250 cc) on spontaneous mode mechanical ventilation. She does demonstrate facial grimacing and predominantly left facial myoclonus with noxious stimulation and suctioning. Positive cough, corneal and gag reflexes. Psych Mood & Affect: flat affect Charges/Coding Procedures Hospitalists Procedures: 18077 Critial Care 1st Hr
[2021-08-28 07:20] LABS: ALB/GLOB Ratio 0.7 RATIO (0.9-2.4); AST(SGOT) 53 U/L (15-37); Alanine Aminotransfer ALT/SGPT 49 U/L (13-56); Albumin, Serum 2.4 g/dL (3.2-5.0); Alkaline Phosphatase 78 U/L (45-117); Anion Gap 7 (5-15); BUN 24 mg/dL (7-18); BUN/Creat Ratio 31.2 RATIO (10-20); Calcium,Total 8.9 mg/dL (8.5-10.1); Chloride 110 mmol/L (98-107); Creatinine, Serum 0.77 mg/dL (0.55-1.02); EST Glomerular Filtration Rate 79 mL/min (>60); Est Glom Filt Rate - Afr Amer 96 mL/min (>60); Estimated Creatinine Clearance 40.07 ml/min; Globulin 3.6 g/dL (2.2-4.2); Glucose 133 mg/dL (74-106); Potassium 4.1 mmol/L (3.5-5.1); Sodium Level 142 mmol/L (136-145)
[2021-08-28] MEDS: Chlorhexidine 15 ML PO ×2 (07:44→21:28)
[2021-08-28] MEDS: TITRATION PARAMETER CHANGE 1 EACH IV (07:44)
--- NOTE | 2021-08-28 08:06 | PN.HOSP_ITS ---
Subjective Subjective Follow-up on acute hypoxic respite failure/acute cardiopulmonary arrest: Patient was seen and examined.?No acute events overnight. Remains intubated on minimal oxygen requirement. No purposeful movements. Patient failed a spontaneous awakening trial with hypoxia, vent dyssynchrony and myoclonus. Resumed on propofol and fentanyl. Objective Data Objective Data Vital Signs: Vital Signs Temp Pulse Resp BP Pulse Ox O2 Del Method O2 Flow Rate 98.9 F 84 14 118/52 L 94 Mechanical Ventilator 3 08/28/21 08:00 08/28/21 08:00 08/28/21 08:00 08/28/21 08:00 08/28/21 08:00 08/28/21 08:00 08/26/21 17:00 FiO2 30 08/28/21 08:00 Oxygen Flow Rate (L/min) 3 Oxygen Delivery Method Mechanical Ventilator Weight: 102.9 kg Body Mass Index (BMI) 795785.4 Intake & Output: Intake and Output for Last 24 Hours 08/26/21 08/27/21 08/28/21 23:59 23:59 23:59 Intake Total 2787.30 / 3155.00 3999.97 / 4039.57 1385.81 / 1385.81 Output Total 120 / 135 110 / 110 1375 / 1375 Balance 2667.30 / 3020.00 3889.97 / 3929.57 10.81 / 10.81 Lab / Micro Data Result Diagrams: 08/27/21 04:15 08/28/21 03:25 Labs: Laboratory Results - last 24 hr 08/28/21 03:25: Sodium 142, Potassium 4.1, Chloride 110 H, Carbon Dioxide 25.0, Anion Gap 7, BUN 24 H, Creatinine 0.77, Estim Creat Clear Calc 40.07, Est GFR (MDRD) Af Amer 96, Est GFR (MDRD) Non-Af 79, BUN/Creatinine Ratio 31.2 H, Glucose 133 H, Calcium 8.9, Total Bilirubin 0.40, AST 53 H, ALT 49, Alkaline Phosphatase 78, Total Protein 6.0 L, Albumin 2.4 L, Globulin 3.6, Albumin/Globul in Ratio 0.7 L 08/28/21 03:25: Sodium Cancelled, Potassium Cancelled, Chloride Cancelled, Carbon Dioxide Cancelled, Anion Gap Cancelled, BUN Cancelled, Creatinine Can celled, Estim Creat Clear Calc Cancelled, Est GFR (MDRD) Af Amer Cancelled, Est GFR (MDRD) Non-Af Cancelled, BUN/Creatinine Ratio Cancelled, Glucose Cancelled, Calcium Cancelled, Total Bilirubin Cancelled, AST Cancelled, ALT Cancelled, Alkaline Phosphatase Cancelled, Total Protein Cancelled, Albumin Cancelled, Globulin Cancelled, Albumin/Globulin Ratio Cancelled Micro: Microbiology 08/24/21 15:30 Sputum, Induced/Lukens Gram Stain - Final 08/24/21 15:30 Sputum, Induced/Lukens Respiratory Culture - Final 08/24/21 15:08 Blood Culture (Wb) - Right Hand Blood Culture - Preliminary No growth in 48 hours. 08/24/21 14:45 Blood Culture (Wb) - Left Hand Blood Culture - Preliminary No growth in 48 hours. 08/24/21 15:55 Nasal Secretion SARS-CoV-2 Antigen (Rapid) - Final Rhythm Strip Rhythm Strip: Sinus Rhythm Rate: 86 Ectopy: None Physical Exam Narrative Physical exam: General: Sedated, on mechanical ventilator HEENT: Atraumatic Oral: Moist Mucosa Neck: Supple Lungs: Diminished to auscultation Cardiovascular: HS I+II, regular, no murmurs Abdomen: Bowel Sounds Present, Soft, Non Tender Extremities: No edema Assessment & Plan Assessment/Plan (1) Cardiopulmonary arrest: (2) Respiratory failure: (3) Elevated troponin: (4) Elevated serum creatinine: (5) Hyperglycemia: (6) Rib fractures: PLAN: Plan 1. Acute cardiopulmonary arrest, status post CPR; patient remains intubated, Patient with some brainstem function; but overall with probable anoxic brain injury EEG showed severe diffuse bihemispheric cerebral dysfunction MRI brain showed mild to moderate bilateral occipital/parietal and posterior regions of the bilateral frontal lobe hypoxic ischemic changes. Car Cooper and SOC Tele-neurology consulted. Family meeting held for the second day; family leaning towards palliative extubation - waiting on a friend to get here. 2. Acute hypoxic respiratory failure secondary to #1, remains intubated 3. Myoclonus secondary to #1, appears stable on fentanyl and propofol 4. Elevated troponins secondary to CPR, cardiac cath is unremarkable 2D-ECHO shows EF 55%, stage I diastolic dysfunction 5. Acute rib fractures, s/p CPR, nondisplaced, 5th and 6th anterior rib f ractures 6. Elevated transaminitis secondary to #1, levels are slightly improved 7. Hypertension, controlled, continue to monitor, hydralazine as needed 8. GERD, continue PPI 9. DVT PPx - Lovenox SC 10. Code status - DNR-CCA, no intubation Family meeting held today to talk about patient's goals of care and CODE STATUS. Family updated on her clinical condition. Car Cooper, myself, nursing, case management present. Family agreed to make care DNR CCA, pending a terminal extubation. Time spent discussing CODE STATUS 16 minutes Charges/Coding Visit Charges Inpatient E&M: 36559 Subs Hosp L3 Procedures Hospitalists Procedures: 19569 Advncd Care Plan 30 Min
[2021-08-28] MEDS: Propofol 10MG/Ml 1,000 MG/100 ML Bottle 30.9 MG CONT INF ×5 (09:47→21:46)
[2021-08-28] MEDS: Enoxaparin 40 MG/0.4 ML Syringe SC (11:34)
--- NOTE | 2021-08-28 12:11 | CHAPLAIN ---
Type of Pastoral Visit ___ Initial Visit _x__ Follow-up Visit ___ On-call Visit ___ General Patient Visit ___ Spiritual Assessment ___ Family Conference ___ Bereavement ___ Rapid Response ___ Code Blue ___ Other (describe below) Pastoral Care Referral From ___ Patient _x__ Family _x__ Nurse ___ Physician ___ Medical Record Consultant ___ Retail Wireless Associate ___ Other (describe below) Sacrament/Intervention _x__ Active listening ___ Anointing ___ Synagogue ___ Bereavement ___ Communion ___ [place] exploration ___ _x__ Life review _x__ Prayer ___ Reconciliation ___ Sacrament of Sick _x__ Supportive presence ___ Wedding ___ Other (describe below) Pastoral Comments met with all five siblings of patient in the patient's room; introduced self and role to two brothers not previously met; offer of presence and support; asked questions about patient so that family members could process her life and their relationship to her; two siblings were expressive although three brothers were silent; one brother spoke of understanding the reality of pt situation and that the comfort is in knowing that she will be with our parents; family welcomes prayers at this time; brought a lap blanket and explained significant of those who make and pray over them; pt herself made quilts and had a favorite color purple so a blanket with various purple colors was given; family states their appreciation for support and kindness
[2021-08-28 13:26] LABS: Basophil% 0.6 % (0-1); Eosinophils% 4.9 % (0-5); Hematocrit 34.1 % (37-47); Hemoglobin 11.1 g/dL (12.0-15.0); Lymphocyte % 15.4 % (19-41); Mean Corp Hgb Conc 32.6 g/dL (32-36); Mean Corpuscular Hgb 30.4 pg (27.0-32.0); Mean Corpuscular Volume 93.4 fL (81-99); Mean Platelet Vol. 11.3 fl (6.2-12.0); Monocyte% 8.8 % (0-10); Neutrophil % 68.9 % (47-70); Platelet Count 157 K/mm3 (150-450); RBC Distribution Width CV 13.5 % (11.6-14.6); RBC Distribution Width SD 46.2 fl (35.1-43.9); Red Blood Count 3.65 M/mm3 (4.2-5.4); White Blood Count 6.5 K/mm3 (4.4-11.0)
[2021-08-28 13:27] LABS: Absolute Neutrophil Count 4.5 X10^3/uL (2.0-7.7); Basophil# 0.04 X10^3/uL; Eosinophil# 0.32 X10^3/uL; Monocyte# 0.57 X10^3/uL; Neutrophil # 4.49 X10^3/uL (2.7-7.7)
[2021-08-28] MEDS: LORazepam 2 MG/ML Syringe IV (22:01)
[2021-08-29] VITALS (32 sets, daily range): BP systolic 108–139; BP diastolic 46–61; PULSE 68–88; RESP 14–20; TEMP 37.3–38; O2SAT 90–94
[2021-08-29] MEDS: Propofol 10MG/Ml 1,000 MG/100 ML Bottle 30.9 MG CONT INF ×2 (00:43→03:30)
[2021-08-29] MEDS: CHLORHEXIDINE GLUC 2% CLOTH 1 EACH TOWELETTE TOPICAL (03:13)
[2021-08-29] MEDS: LORazepam 2 MG/ML Syringe IV ×7 (03:14→22:56)
[2021-08-29 04:51] LABS: Absolute Lymphocyte Count 0.76 X10^3/uL (0.83-4.51); Absolute Neutrophil Count 3.5 X10^3/uL (2.0-7.7); Basophil# 0.02 X10^3/uL; Basophil% 0.4 % (0-1); Eosinophil# 0.34 X10^3/uL; Eosinophils% 6.5 % (0-5); Hematocrit 30.4 % (37-47); Hemoglobin 9.6 g/dL (12.0-15.0); Lymphocyte # 0.76 X10^3/ul (0.83-4.51); Lymphocyte % 14.5 % (19-41); Mean Corp Hgb Conc 31.6 g/dL (32-36); Mean Corpuscular Hgb 29.9 pg (27.0-32.0); Mean Corpuscular Volume 94.7 fL (81-99); Mean Platelet Vol. 10.9 fl (6.2-12.0); Monocyte# 0.53 X10^3/uL; Monocyte% 10.1 % (0-10); NRBC Flagged by Analyzer 0 % (0-5); Neutrophil # 3.49 X10^3/uL (2.7-7.7); Neutrophil % 66.8 % (47-70); POSITIVE COUNT YES; Platelet Count 143 K/mm3 (150-450); RBC Distribution Width CV 13.7 % (11.6-14.6); RBC Distribution Width SD 47.5 fl (35.1-43.9); Red Blood Count 3.21 M/mm3 (4.2-5.4); White Blood Count 5.2 K/mm3 (4.4-11.0)
[2021-08-29 04:52] LABS: Differential Indicated SCAN CRITERIA MET
[2021-08-29 05:09] LABS: ALB/GLOB Ratio 0.6 RATIO (0.9-2.4); AST(SGOT) 78 U/L (15-37); Alanine Aminotransfer ALT/SGPT 73 U/L (13-56); Albumin, Serum 2.1 g/dL (3.2-5.0); Alkaline Phosphatase 85 U/L (45-117); Anion Gap 5 (5-15); BUN 18 mg/dL (7-18); BUN/Creat Ratio 23.3 RATIO (10-20); Calcium,Total 8.8 mg/dL (8.5-10.1); Chloride 112 mmol/L (98-107); Creatinine, Serum 0.77 mg/dL (0.55-1.02); Differential Comment SCANNED; EST Glomerular Filtration Rate 79 mL/min (>60); Est Glom Filt Rate - Afr Amer 95 mL/min (>60); Estimated Creatinine Clearance 40.07 ml/min; Globulin 3.4 g/dL (2.2-4.2); Glucose 123 mg/dL (74-106); Platelet Estimate ADEQUATE (ADEQ); Potassium 3.7 mmol/L (3.5-5.1); Protein, Total 5.5 g/dL (6.4-8.2); Sodium Level 143 mmol/L (136-145)
--- NOTE | 2021-08-29 06:20 | PCM.PN.INT ---
Assessment & Plan Assessment/Plan (1) Respiratory failure: (2) Cardiopulmonary arrest: PLAN: Plan RECOMMENDATIONS: 1. Continue assist control mode mechanical ventilation. Wean FiO2 for saturations greater than 90%. 2. Schedule Ativan. Continue to wean propofol. 3. Increase Keppra as ordered. 4. Await family gathering prior to palliative extubation 5. Consider inpatient hospice consultation as myoclonic jerking will be difficult to control 6. CODE STATUS to be DNR Comfort Care arrest until palliative extubation IMPRESSIONS: 1. Acute hypoxemic respiratory failure in the setting of out of hospital cardiac arrest Unclear precipitating etiology. Possible benzo overdose versus V. fib arrest. Both cardiac catheterization and CTA chest were unrevealing. ABG has been appropriate on previous investigations. Plan to continue assist-control mode of mechanical ventilation and wean FiO2 for saturations greater than 90%. Patient's myoclonic jerking has limited the ability to decrease sedation. Unclear if patient will protect her airway on extubation. 2. Probable anoxic brain injury The patient is demonstrating myoclonic jerking on examination. However, she does initiate spontaneous breaths and does appear to respond to noxious stimulation. Accordingly, EEG has been completed showing severe anoxic injury. Recommend obtaining neurology consultation. In the interim, attempt to limit sedation as tolerated. Continue Keppra as ordered. Patient will likely not progress to brain . Patient has had an EEG stating no status epilepticus. Significant concern patient's myoclonus may make the dying process very stressful for the family. Patient will be titrated up on Ativan, weaning propofol to off. We will also increase patient's Keppra dosing to see if this can help. Could consider inpatient hospice referral for more advanced recommendations 3. Mild transaminitis/hypertension/GERD/hyperlipidemia/obesity Complicates care, management, recovery and prognosis. Continue supportive measures as noted above. TIME: 31 minutes of critical care time, independent of procedures, was spent addressing the patient's acute hypoxemic respiratory failure, out of hospital V. fib cardiac arrest, questionable anoxic brain injury, review of all data and collaboration with the care team. Subjective Subjective Extensive discussion with the family yesterday about goals of therapy. Patient transition to DNR Comfort Care arrest for now, but family is currently gathering and anticipate palliative extubation in the next 24 to 48 hours. No change in neurologic or hemodynamic status overnight. However, attempts at decreasing propofol have been unsuccessful thus far. Nursing is reporting with any small changes in propofol patient starts to have myoclonic jerking. Objective Data Objective Data Vital Signs: Vital Signs Temp Pulse Resp BP Pulse Ox O2 Del Method O2 Flow Rate 37.4 C H 70 14 114/47 L 93 Mechanical Ventilator 3 08/29/21 04:00 08/29/21 05:40 08/29/21 05:40 08/29/21 04:00 08/29/21 05:40 08/29/21 04:00 08/26/21 17:00 FiO2 35 08/29/21 05:40 Oxygen Flow Rate (L/min) 3 Oxygen Delivery Method Mechanical Ventilator Weight: 101.9 kg Body Mass Index (BMI) 035780.4 Intake & Output: Intake and Output for Last 24 Hours 08/27/21 08/28/21 08/29/21 23:59 23:59 23:59 Intake Total 3999.97 / 4039.57 4614.81 / 4730.71 479.63 / 479.63 Output Total 110 / 110 2600 / 2750 675 / 675 Balance 3889.97 / 3929.57 2014.81 / 1980.71 -195.37 / -195.37 Lab / Micro Data Attestation: I reviewed the patient's lab results. Result Diagrams: 08/29/21 04:43 08/29/21 04:43 Labs: Laboratory Results - last 24 hr 08/28/21 03:25: WBC 6.5, RBC 3.65 L, Hgb 11.1 L, Hct 34.1 L, MCV 93.4, MCH 30.4, MCHC 32.6, RDW Std Deviation 46.2 H, RDW Coeff of Dougie 13.5, Plt Count 157, MPV 11.3, Immature Gran % (Auto) 1.400 H, Neut % (Auto) 68.9, Lymph % (Auto) 15.4 L, [place] % (Auto) 8.8, Eos % (Auto) 4.9, Baso % (Auto) 0.6, Absolute Neuts (auto) 4.5, Absolute Lymphs (auto) 1.00 08/28/21 03:25: Sodium 142, Potassium 4.1, Chloride 110 H, Carbon Dioxide 25.0, Anion Gap 7, BUN 24 H, Creatinine 0.77, Estim Creat Clear Calc 40.07, Est GFR (MDRD) Af Amer 96, Est GFR (MDRD) Non-Af 79, BUN/Creatinine Ratio 31.2 H, Glucose 133 H, Calcium 8.9, Total Bilirubin 0.40, AST 53 H, ALT 49, Alkaline Phosphatase 78, Total Protein 6.0 L, Albumin 2.4 L, Globulin 3.6, Albumin/Globulin Ratio 0.7 L 08/28/21 03:25: Sodium Cancelled, Potassium Cancelled, Chloride Cancelled, Carbon Dioxide Cancelled, Anion Gap Cancelled, BUN Cancelled, Creatinine Cancelled, Estim Creat Clear Calc Cancelled, Est GFR (MDRD) Af Amer Cancelled, Est GFR (MDRD) Non-Af Cancelled, BUN/Creatinine Ratio Cancelled, Glucose Cancelled, Calcium Cancelled, Total Bilirubin Cancelled, AST Cancelled, ALT Cancelled, Alkaline Phosphatase Cancelled, Total Protein Cancelled, Albumin Cancelled, Globulin Cancelled, Albumin/Globulin Ratio Cancelled 08/29/21 04:43: WBC 5.2, RBC 3.21 L, Hgb 9.6 L, Hct 30.4 L, MCV 94.7, MCH 29.9, MCHC 31.6 L, RDW Std Deviation 47.5 H, RDW Coeff of Dougie 13.7, Plt Count 143 L, MPV 10.9, Immature Gran % (Auto) 1.700 H, Neut % (Auto) 66.8, Lymph % (Auto) 14.5 L, [place] % (Auto) 10.1 H, Eos % (Auto) 6.5 H, Baso % (Auto) 0.4, Absolute Neuts (auto) 3.5, Absolute Lymphs (auto) 0.76 L, Nucleated RBC % 0, Differential Comment SCANNED, Platelet Estimate ADEQUATE 08/29/21 04:43: Sodium 143, Potassium 3.7, Chloride 112 H, Carbon Dioxide 26.0, Anion Gap 5, BUN 18, Creatinine 0.77, Estim Creat Clear Calc 40.07, Est GFR (MDRD) Af Amer 95, Est GFR (MDRD) Non-Af 79, BUN/Creatinine Ratio 23.3 H, Glucose 123 H, Calcium 8.8, Total Bilirubin 0.40, AST 78 H, ALT 73 H, Alkaline Phosphatase 85, Total Protein 5.5 L, Albumin 2.1 L, Globulin 3.4, Albumin/Globulin Ratio 0.6 L Micro: Microbiology 08/24/21 15:30 Sputum, Induced/Lukens Gram Stain - Final 08/24/21 15:30 Sputum, Induced/Lukens Respiratory Culture - Final 08/24/21 15:08 Blood Culture (Wb) - Right Hand Blood Culture - Preliminary No growth in 48 hours. 08/24/21 14:45 Blood Culture (Wb) - Left Hand Blood Culture - Preliminary No growth in 48 hours. 08/24/21 15:55 Nasal Secretion SARS-CoV-2 Antigen (Rapid) - Final Rhythm Strip Rhythm Strip: Sinus Tach Rate: 108 Ectopy: None Physical Exam Const Constitutional Narrative: Less myoclonic jerking of the left facial and cervical area with stimulation only, but on propofol at 30 mics. General Appearance: intubated and patient mechanically ventilated Nutritional Appearance: obese HEENT normocephalic and head/scalp atraumatic Eyes PERRL and conjunctivae normal Neck supple General: trachea midline Chest inspection of chest normal Resp normal respiratory effort Auscultation: Negative for rales, rhonchi or wheezes Cardio regular rate, regular rhythm, S1 normal heart sound, S2 normal heart sound, no murmurs, no rub and no gallops GI normal to inspection, nondistended, normoactive bowel sounds Extremity no clubbing, cyanosis or edema Skin no rashes or lesions noted Neuro Neuro Narrative: The patient does initiate small tidal volume breaths (250 cc) on spontaneous mode mechanical ventilation. She does demonstrate facial grimacing and predominantly left facial myoclonus with noxious stimulation and suctioning. Positive cough, corneal and gag reflexes. Psych Mood & Affect: flat affect Charges/Coding Procedures Hospitalists Procedures: 79980 Critial Care 1st Hr
[2021-08-29] MEDS: Propofol 10MG/Ml 1,000 MG/100 ML Bottle 24.7 MG CONT INF (07:00)
--- NOTE | 2021-08-29 08:33 | PCM.PN.HOSP ---
Subjective Subjective Follow-up on acute hypoxic respite failure/acute cardiopulmonary arrest: Patient was seen and examined.? Patient's remains intubated on minimal oxygen requirements. Attempt at weaning off propofol overnight resulted in worsening myoclonic jerks. Her Keppra has been increased and she is on scheduled Ativan. Objective Data Objective Data Vital Signs: Vital Signs Temp Pulse Resp BP Pulse Ox O2 Del Method O2 Flow Rate 99.3 F H 68 14 115/48 L 92 Mechanical Ventilator 3 08/29/21 06:00 08/29/21 06:47 08/29/21 06:47 08/29/21 06:00 08/29/21 06:47 08/29/21 06:00 08/26/21 17:00 FiO2 35 08/29/21 06:47 Oxygen Flow Rate (L/min) 3 Oxygen Delivery Method Mechanical Ventilator Weight: 101.9 kg Body Mass Index (BMI) 078210.4 Intake & Output: Intake and Output for Last 24 Hours 08/27/21 08/28/21 08/29/21 23:59 23:59 23:59 Intake Total 3999.97 / 4039.57 4614.81 / 4730.71 511.13 / 511.13 Output Total 110 / 110 2600 / 2750 950 / 950 Balance 3889.97 / 3929.57 2014.81 / 1980.71 -438.87 / -438.87 Lab / Micro Data Result Diagrams: 08/29/21 04:43 08/29/21 04:43 Labs: Laboratory Results - last 24 hr 08/28/21 03:25: WBC 6.5, RBC 3.65 L, Hgb 11.1 L, Hct 34.1 L, MCV 93.4, MCH 30.4, MCHC 32.6, RDW Std Deviation 46.2 H, RDW Coeff of Dougie 13.5, Plt Count 157, MPV 11.3, Immature Gran % (Auto) 1.400 H, Neut % (Auto) 68.9, Lymph % (Auto) 15.4 L, [place] % (Auto) 8.8, Eos % (Auto) 4.9, Baso % (Auto) 0.6, Absolute Neuts (auto) 4.5, Absolute Lymphs (auto) 1.00 08/29/21 04:43: WBC 5.2, RBC 3.21 L, Hgb 9.6 L, Hct 30.4 L, MCV 94.7, MCH 29.9, MCHC 31.6 L, RDW Std Deviation 47.5 H, RDW Coeff of Dougie 13.7, Plt Count 143 L, MPV 10.9, Immature Gran % (Auto) 1.700 H, Neut % (Auto) 66.8, Lymph % (Auto) 14.5 L, [place] % (Auto) 10.1 H, Eos % (Auto) 6.5 H, Baso % (Auto) 0.4, Absolute Neuts (auto) 3.5, Absolute Lymphs (auto) 0.76 L, Nucleated RBC % 0, Differential Comment SCANNED, Platelet Estimate ADEQUATE 08/29/21 04:43: Sodium 143, Potassium 3.7, Chloride 112 H, Carbon Dioxide 26.0, Anion Gap 5, BUN 18, Creatinine 0.77, Estim Creat Clear Calc 40.07, Est GFR (MDRD) Af Amer 95, Est GFR (MDRD) Non-Af 79, BUN/Creatinine Ratio 23.3 H, Glucose 123 H, Calcium 8.8, Total Bilirubin 0.40, AST 78 H, ALT 73 H, Alkaline Phosphatase 85, Total Protein 5.5 L, Albumin 2.1 L, Globulin 3.4, Albumin/Globulin Ratio 0.6 L Micro: Microbiology 08/24/21 15:30 Sputum, Induced/Lukens Gram Stain - Final 08/24/21 15:30 Sputum, Induced/Lukens Respiratory Culture - Final 08/24/21 15:08 Blood Culture (Wb) - Right Hand Blood Culture - Preliminary No growth in 48 hours. 08/24/21 14:45 Blood Culture (Wb) - Left Hand Blood Culture - Preliminary No growth in 48 hours. 08/24/21 15:55 Nasal Secretion SARS-CoV-2 Antigen (Rapid) - Final Rhythm Strip Rhythm Strip: Sinus Tach Rate: 108 Ectopy: None Physical Exam Narrative Physical exam: General: Sedated, on mechanical ventilator HEENT: Atraumatic, ET tube Oral: Moist Mucosa Neck: Supple Lungs: Diminished to auscultation Cardiovascular: HS I+II, regular, no murmurs Abdomen: Bowel Sounds Present, Soft, Non Tender Extremities: No edema Assessment & Plan Assessment/Plan (1) Cardiopulmonary arrest: (2) Respiratory failure: (3) Elevated troponin: (4) Elevated serum creatinine: (5) Hyperglycemia: (6) Rib fractures: PLAN: Plan 1. Acute cardiopulmonary arrest, status post CPR; patient remains intubated, Patient with some brainstem function; but overall with probable anoxic brain injury EEG showed severe diffuse bihemispheric cerebral dysfunction MRI brain showed mild to moderate bilateral occipital/parietal and posterior regions of the bilateral frontal lobe hypoxic ischemic changes. Supervisor Delivery Department and SOC Tele-neurology consulted. Multiple family meetings in the last few days, family leaning towards palliative extubation - waiting on a friend to get here. 2. Acute hypoxic respiratory failure secondary to #1, remains intubated 3. Anoxic brain injury, s/p #1, management as in #1 4. Myoclonus secondary to #1, worsening when sedation is being weaned off Keppra increased to 1 g every 12, continue with scheduled Ativan Repeat EEG stat, Continue on fentanyl and propofol 5. Elevated troponins secondary to CPR, cardiac cath is unremarkable 2D-ECHO shows EF 55%, stage I diastolic dysfunction 6. Acute rib fractures, s/p CPR, nondisplaced, 5th and 6th anterior rib fractures 7. Elevated transaminitis secondary to #1, levels are slightly improved 8. Hypertension, controlled, continue to monitor, hydralazine as needed 9. GERD, continue PPI 10. DVT PPx - Lovenox SC 11. Code status - DNR-CCA, no intubation Charges/Coding Visit Charges Inpatient E&M: 68387 [facility] Hosp L3
[2021-08-29] MEDS: 0.9% Saline Lock 10 ML Syringe IV ×3 (08:36→16:41)
[2021-08-29] MEDS: Enoxaparin 40 MG/0.4 ML Syringe SC (10:27)
[2021-08-29] MEDS: Chlorhexidine 15 ML PO ×2 (10:28→21:45)
[2021-08-29] MEDS: Propofol 10MG/Ml 1,000 MG/100 ML Bottle 15.4 MG CONT INF ×2 (11:12→15:57)
--- NOTE | 2021-08-29 15:08 | CASEMGMT ---
Social Work SW met with pt's brother, sister in law and niece in pts room. Emotional support provided to pt's family as they process pt's sudden illness and poor recovery expectation. SW will remain available for additional support as needed. EFRAÍN José
--- NOTE | 2021-08-29 15:46 | CHAPLAIN ---
Type of Pastoral Visit ___ Initial Visit _x__ Follow-up Visit ___ On-call Visit ___ General Patient Visit ___ Spiritual Assessment ___ Family Conference ___ Bereavement ___ Rapid Response ___ Code Blue ___ Other (describe below) Pastoral Care Referral From ___ Patient _x__ Family _x__ Nurse ___ Physician ___ Insulation Board Calender Operator ___ Senior Cyber Intelligence Analyst ___ Other (describe below) Sacrament/Intervention ___ Active listening ___ Anointing ___ Nondenominational ___ Bereavement ___ Communion ___ [place] exploration ___ ___ Life review _x__ Prayer ___ Reconciliation ___ Sacrament of Sick _x__ Supportive presence ___ Wedding ___ Other (describe below) Pastoral Comments family members have gathered in room of patient again this afternoon; two other family members have come today and others are still expected; decision for withdrawal of care is pending; offered presence and prayer again with family; offered further support as desired
[2021-08-29] MEDS: Vital AF 1.2 Cal Liquid 1,000 ML 55 ML GT (15:57)
[2021-08-29] MEDS: Propofol 10MG/Ml 1,000 MG/100 ML Bottle 12.3 MG CONT INF (22:46)
[2021-08-30] VITALS (22 sets, daily range): BP systolic 117–153; BP diastolic 50–69; PULSE 73–108; RESP 14–26; TEMP 37.4–38; O2SAT 82–95
[2021-08-30] MEDS: LORazepam 2 MG/ML Syringe IV ×10 (02:06→23:04)
--- NOTE | 2021-08-30 02:36 | NURSING ---
Turning and oral care performed asynchronus with scheduled times due to myoclonus. Done around periods of scheduled Ativan to minimize stimulation between medication administration times.
[2021-08-30] MEDS: Propofol 10MG/Ml 1,000 MG/100 ML Bottle 12.3 MG CONT INF (03:20)
[2021-08-30] MEDS: 0.9% Saline Lock 10 ML Syringe IV ×2 (04:51→10:55)
[2021-08-30 05:34] LABS: ALB/GLOB Ratio 0.6 RATIO (0.9-2.4); AST(SGOT) 67 U/L (15-37); Alanine Aminotransfer ALT/SGPT 77 U/L (13-56); Albumin, Serum 2.2 g/dL (3.2-5.0); Alkaline Phosphatase 102 U/L (45-117); Anion Gap 5 (5-15); BUN 22 mg/dL (7-18); BUN/Creat Ratio 30.5 RATIO (10-20); Chloride 112 mmol/L (98-107); Creatinine, Serum 0.72 mg/dL (0.55-1.02); EST Glomerular Filtration Rate 85 mL/min (>60); Est Glom Filt Rate - Afr Amer 103 mL/min (>60); Estimated Creatinine Clearance 40.07 ml/min; Globulin 3.9 g/dL (2.2-4.2); Glucose 136 mg/dL (74-106); Protein, Total 6.1 g/dL (6.4-8.2); Sodium Level 143 mmol/L (136-145)
--- NOTE | 2021-08-30 06:46 | PCM.PN.INT ---
Assessment & Plan Assessment/Plan (1) Respiratory failure: (2) Cardiopulmonary arrest: PLAN: Plan RECOMMENDATIONS: 1. Continue assist control mode mechanical ventilation. Wean FiO2 for saturations greater than 90%. 2. Increase Ativan. Continue Depakote and Keppra. Continue to wean propofol. 3. Anticipate palliative extubation later today 4. Confirm timing of palliative extubation with family 5. Consider inpatient hospice consultation as myoclonic jerking will be difficult to control 6. CODE STATUS to be DNR Comfort Care arrest until palliative extubation IMPRESSIONS: 1. Acute hypoxemic respiratory failure in the setting of out of hospital cardiac arrest Unclear precipitating etiology. Possible benzo overdose versus V. fib arrest of unclear etiology. Both cardiac catheterization and CTA chest were unrevealing. ABG has been appropriate on previous investigations. Plan to continue assist-control mode of mechanical ventilation and wean FiO2 for saturations greater than 90%. Patient's myoclonic jerking has limited the ability to decrease sedation. Unclear if patient will protect her airway on extubation. 2. Probable anoxic brain injury The patient is demonstrating myoclonic jerking on examination. However, she does initiate spontaneous breaths and does appear to respond to noxious stimulation. Accordingly, EEG has been completed showing severe anoxic injury. Recommend obtaining neurology consultation. In the interim, attempt to limit sedation as tolerated. Continue Keppra as ordered. Patient will likely not progress to brain . Patient has had an EEG stating no status epilepticus, but repeat is still pending. Significant increase in antiepileptics yesterday.. Significant concern patient's myoclonus may make the dying process very stressful for the family. Patient will be titrated up on Ativan, weaning propofol to off. Could consider inpatient hospice referral for more advanced recommendations 3. Mild transaminitis/hypertension/GERD/hyperlipidemia/obesity Complicates care, management, recovery and prognosis. Continue supportive measures as noted above. Patient is starting to become significantly edematous, so we will hold tube feeds TIME: 32 minutes of critical care time, independent of procedures, was spent addressing the patient's acute hypoxemic respiratory failure, out of hospital V. fib cardiac arrest, questionable anoxic brain injury, review of all data and collaboration with the care team. Subjective Subjective Patient did okay overnight from a hemodynamic standpoint. Nursing is reporting that the family members have arrived. Multiple medication changes yesterday, but patient continues to have significant myoclonus when propofol is dropped below 20 mics. Patient has tolerated tube feeds. Objective Data Objective Data Vital Signs: Vital Signs Temp Pulse Resp BP Pulse Ox O2 Del Method O2 Flow Rate 37.9 C H 73 14 123/53 H 92 Mechanical Ventilator 3 08/30/21 02:00 08/30/21 04:30 08/30/21 04:30 08/30/21 02:00 08/30/21 04:30 08/30/21 02:00 08/26/21 17:00 FiO2 35 08/30/21 04:30 Oxygen Flow Rate (L/min) 3 Oxygen Delivery Method Mechanical Ventilator Weight: 101.6 kg Body Mass Index (BMI) 089397.4 Intake & Output: Intake and Output for Last 24 Hours 08/28/21 08/29/21 08/30/21 23:59 23:59 23:59 Intake Total 4614.81 / 4730.71 4339.79 / 4434.59 227.8 / 227.8 Output Total 2600 / 2750 1775 / 1815 115 / 115 Balance 201481 / 1980.71 2564.79 / 2619.59 112.8 / 112.8 Lab / Micro Data Attestation: I reviewed the patient's lab results. Result Diagrams: 08/29/21 04:43 08/30/21 05:11 Labs: Laboratory Results - last 24 hr 08/30/21 05:11: Sodium 143, Potassium 4.0, Chloride 112 H, Carbon Dioxide 26.0, Anion Gap 5, BUN 22 H, Creatinine 0.72, Estim Creat Clear Calc 40.07, Est GFR (MDRD) Af Amer 103, Est GFR (MDRD) Non-Af 85, BUN/Creatinine Ratio 30.5 H, Glucose 136 H, Calcium 9.0, Total Bilirubin 0.30, AST 67 H, ALT 77 H, Alkaline Phosphatase 102, Total Protein 6.1 L, Albumin 2.2 L, Globulin 3.9, Albumin/Globulin Ratio 0.6 L Micro: Microbiology 08/24/21 14:45 Blood Culture (Wb) - Left Hand Blood Culture - Final No growth in 5 days. 08/24/21 15:30 Sputum, Induced/Lukens Gram Stain - Final 08/24/21 15:30 Sputum, Induced/Lukens Respiratory Culture - Final 08/24/21 15:08 Blood Culture (Wb) - Right Hand Blood Culture - Preliminary No growth in 48 hours. 08/24/21 15:55 Nasal Secretion SARS-CoV-2 Antigen (Rapid) - Final Rhythm Strip Rhythm Strip: Sinus Rhythm Rate: 81 Ectopy: None Physical Exam Const Constitutional Narrative: Less myoclonic jerking of the left facial and cervical area with stimulation only, but on propofol at 20 mics. General Appearance: intubated and patient mechanically ventilated Nutritional Appearance: obese HEENT normocephalic and head/scalp atraumatic Eyes PERRL and conjunctivae normal Neck supple General: trachea midline Chest inspection of chest normal Resp normal respiratory effort Auscultation: Negative for rales, rhonchi or wheezes Cardio regular rate, regular rhythm, S1 normal heart sound, S2 normal heart sound, no murmurs, no rub and no gallops GI normal to inspection, nondistended, normoactive bowel sounds Extremity General Extremity: edema; Negative for clubbing Skin no rashes or lesions noted Neuro Neuro Narrative: The patient does initiate tidal volume breaths (350 cc) on spontaneous mode mechanical ventilation. She does demonstrate facial grimacing and predominantly left facial myoclonus with noxious stimulation and suctioning. Positive cough, corneal and gag reflexes. Psych Mood & Affect: flat affect Charges/Coding Procedures Hospitalists Procedures: 64297 Critial Care 1st Hr
[2021-08-30] MEDS: Chlorhexidine 15 ML PO (10:03)
[2021-08-30] MEDS: Enoxaparin 40 MG/0.4 ML Syringe SC (10:03)
[2021-08-30] MEDS: Morphine 4 MG/ML Syringe IV ×3 (13:27→23:03)
[2021-08-30] MEDS: Atropine Sulfate 1% 2 ml Bottle 4 DRP PO ×4 (13:34→23:04)
--- NOTE | 2021-08-30 14:33 | CHAPLAIN ---
Type of Pastoral Visit ___ Initial Visit ___ Follow-up Visit ___ On-call Visit ___ General Patient Visit ___ Spiritual Assessment _x__ Family Conference _x__ Bereavement ___ Rapid Response ___ Code Blue ___ Other (describe below) Pastoral Care Referral From ___ Patient _x__ Family ___ Nurse ___ Physician ___ Back Up Worker ___ Sonar Technician ___ Other (describe below) Sacrament/Intervention ___ Active listening ___ Anointing ___ Confucianist ___ Bereavement ___ Communion ___ [place] exploration ___ ___ Life review _x__ Prayer ___ Reconciliation ___ Sacrament of Sick _x__ Supportive presence ___ Wedding ___ Other (describe below) Pastoral Comments met with family members after patient was extubated; many family members present in room; most were gathered around the bed; offer of support; family is of Yazidi background; quoted [place] and the Our Father; most in attendance joined in praying the Our Father and expressed gratitude for the presence and support;
[2021-08-30] MEDS: Morphine 2 MG/ML Syringe IV ×7 (14:38→21:03)
--- NOTE | 2021-08-30 16:49 | PCM.PN.HOSP ---
Subjective Subjective Follow-up on acute hypoxic respite failure/acute cardiopulmonary arrest: Patient was seen and examined.? Her repeat EEG showed some evidence of seizure activity; discussed with teleneurology on phone, this indicates very poor prognosis in the backdrop of severe anoxic brain injury. Patient continues to have myoclonic jerks overnight resulting in inability to withdraw propofol. Her Keppra has been increased to 1 g twice daily. Depakote added. Ativan made every 2 as needed with a dose increase. Family members as well as friends around. Patient will be terminally extubated. Objective Data Objective Data Vital Signs: Vital Signs Temp Pulse Resp BP Pulse Ox O2 Del Method O2 Flow Rate 100.2 F H 88 14 144/61 H 90 Nasal Cannula 3 08/30/21 13:00 08/30/21 13:00 08/30/21 13:00 08/30/21 13:00 08/30/21 13:19 08/30/21 13:19 08/26/21 17:00 FiO2 35 08/30/21 11:09 Oxygen Flow Rate (L/min) 3 Oxygen Delivery Method Nasal Cannula Weight: 101.6 kg Body Mass Index (BMI) 486778.4 Intake & Output: Intake and Output for Last 24 Hours 08/28/21 08/29/21 08/30/21 23:59 23:59 23:59 Intake Total 4614.81 / 4730.71 4339.79 / 4434.59 760.56 / 760.56 Output Total 2600 / 2750 1775 / 1815 465 / 465 Balance 2014.81 / 1980.71 2564.79 / 2619.59 295.56 / 295.56 Lab / Micro Data Result Diagrams: 08/29/21 04:43 08/30/21 05:11 Labs: Laboratory Results - last 24 hr 08/30/21 05:11: Sodium 143, Potassium 4.0, Chloride 112 H, Carbon Dioxide 26.0, Anion Gap 5, BUN 22 H, Creatinine 0.72, Estim Creat Clear Calc 40.07, Est GFR (MDRD) Af Amer 103, Est GFR (MDRD) Non-Af 85, BUN/Creatinine Ratio 30.5 H, Glucose 136 H, Calcium 9.0, Total Bilirubin 0.30, AST 67 H, ALT 77 H, Alkaline Phosphatase 102, Total Protein 6.1 L, Albumin 2.2 L, Globulin 3.9, Albumin/Globulin Ratio 0.6 L Micro: Microbiology 08/24/21 15:08 Blood Culture (Wb) - Right Hand Blood Culture - Final No growth in 5 days. 08/24/21 14:45 Blood Culture (Wb) - Left Hand Blood Culture - Final No growth in 5 days. 08/24/21 15:30 Sputum, Induced/Lukens Gram Stain - Final 08/24/21 15:30 Sputum, Induced/Lukens Respiratory Culture - Final 08/24/21 15:55 Nasal Secretion SARS-CoV-2 Antigen (Rapid) - Final Rhythm Strip Rhythm Strip: Sinus Rhythm Rate: 81 Ectopy: None Physical Exam Narrative Physical exam: General: Sedated, on mechanical ventilator HEENT: Atraumatic, ET tube Oral: Moist Mucosa Neck: Supple Lungs: Diminished to auscultation Cardiovascular: HS I+II, regular, no murmurs Abdomen: Bowel Sounds Present, Soft, Non Tender Extremities: No edema Assessment & Plan Assessment/Plan (1) Cardiopulmonary arrest: (2) Respiratory failure: (3) Elevated troponin: (4) Elevated serum creatinine: (5) Hyperglycemia: (6) Rib fractures: PLAN: Plan 1. Anoxic brain injury secondary to cardiopulmonary arrest Patient with myoclonic jerks and seizure activity indicating poor prognosis Palliative extubation today, comfort measures in place 2. Acute cardiopulmonary arrest, status post CPR Patient with some brainstem function; but overall with probable anoxic brain injury EEG showed severe diffuse bihemispheric cerebral dysfunction MRI brain showed mild to moderate bilateral occipital/parietal and posterior regions of the bilateral frontal lobe hypoxic ischemic changes. Director Workforce Management and SOC Tele-neurology consulted. 3. Acute hypoxic respiratory failure secondary to #1, patient to be extubated today 4. Myoclonus secondary to #1, worsening when sedation is being weaned off Keppra increased to 1.5 g every 12h, continue with scheduled increase Ativan Fentanyl and propofol to be weaned off 5. Elevated troponins secondary to CPR, cardiac cath is unremarkable 2D-ECHO shows EF 55%, stage I diastolic dysfunction 6. Acute rib fractures, s/p CPR, nondisplaced, 5th and 6th anterior rib fractures 7. Elevated transaminitis secondary to #1, levels are slightly improved 8. Hypertension, controlled, continue to monitor, hydralazine as needed 9. GERD, continue PPI 10. DVT PPx - Lovenox SC 11. Code status - DNR-CCA, no intubation Charges/Coding Visit Charges Inpatient E&M: 87374 Subs Hosp L3
[2021-08-31] VITALS (7 sets, daily range): BP systolic 62–157; BP diastolic 42–63; PULSE 49–126; RESP 16–32; TEMP 38.2–39.8; O2SAT 25–80
[2021-08-31] MEDS: Morphine 4 MG/ML Syringe IV ×8 (00:03→15:29)
[2021-08-31] MEDS: LORazepam 2 MG/ML Syringe IV ×5 (01:18→15:26)
[2021-08-31] MEDS: Atropine Sulfate 1% 2 ml Bottle 4 DRP PO ×4 (02:50→13:39)
[2021-08-31] MEDS: Ketorolac 30 MG/ML Syringe IV ×2 (06:45→15:23)
[2021-08-31] MEDS: morphine 10 MG/ML Syringe IV ×3 (09:49→13:41)
[2021-08-31] MEDS: Acetaminophen 650 MG Suppository RC ×2 (09:59→15:23)
--- NOTE | 2021-08-31 16:52 | NURSING ---
Asystole noted on monitor. No heart sounds auscultated by this RN. Verified w/ Supa CARDOSO. Time of 1651. Several family at bedside, emotional support given.
--- NOTE | 2021-08-31 16:59 | PCM.DEATH ---
Preliminary Cause of Preliminary Cause of Preliminary Cause of : Anoxic brain injury Acute cardiopulmonary arrest Date of Admission: 08/24/21 Date of : 08/31/21 Principle Diagnosis Problem List: Active and Suspected Problems (Updated 08/24/21 @ 17:[address] Angela Milian, DO) Rib fractures (Acute) Hyperglycemia (Acute) Elevated serum creatinine (Acute) Cardiopulmonary arrest (Acute) Respiratory failure (Acute) Elevated troponin (Acute) Hospital Course 71-year-old female who had an out of hospital cardiac arrest. Patient was found down by her brother for an unknown period of time. The EMS were called. She underwent cardiopulmonary resuscitation for about 15 to 20 minutes with her rhythm predominantly being in V. fib arrest. She finally had return of spontaneous circulation. Patient was intubated in the emergency room. Admitted to ICU and managed on mechanical ventilator with minimal oxygen requirement. She was also started on IV Keppra. Medical Office Coordinator and cardiology were consulted. Patient had elevated troponin. She underwent cardiac catheterization that showed clean coronaries. Patient underwent MRI that showed mild to moderate abnormal signal distribution of bilateral occipital lobes extending superior along the parietal and posterior regions of the bilateral frontal lobes. Patient had an initial EEG that showed generalized suppression of electrical activity all over the head regions. Patient was found to be having severe myoclonic jerks. This was subsided with IV propofol and fentanyl drips. It was difficult to be weaned off the sedatives as a micromanages were worse. Several family meetings were held. Family stated that the patient would not want to be like this. Some friends from [place] were coming in to see patient before palliative extubation was to be held. Finally when everybody had seen the patient, patient was terminally extubated. She passed on 08/31/21 at 1652 with her family by her bedside. Visit Charges Inpatient E&M: 71212 [facility] Hosp
--- NOTE | 2021-08-31 17:08 | NURSING ---
No IV fluids given during last hour of life.
== END 2021-08-31 18:31 | DRG 286 ==
LOC: ED 13:03 → ICU 13:47
PROVIDERS: Internal Medicine; Admitting Provider Specialist; Emergency Provider Emergency Medicine; Referring Provider Specialist; Visit Provider Internal Medicine
DX: I46.9 Cardiac arrest, cause unspecified (principal); J96.01 Acute respiratory failure with hypoxia; G93.1 Anoxic brain damage, not elsewhere classified; Z68.41 Body mass index [BMI] 40.0-44.9, adult; E87.2 Acidosis; M96.89 Other intraoperative and postprocedural complications and disorders of the musculoskeletal system; G25.3 Myoclonus; K76.0 Fatty (change of) liver, not elsewhere classified; I10 Essential (primary) hypertension; E78.5 Hyperlipidemia, unspecified; K21.9 Gastro-esophageal reflux disease without esophagitis; G93.89 Other specified disorders of brain; E66.9 Obesity, unspecified; R00.0 Tachycardia, unspecified; R73.9 Hyperglycemia, unspecified; R74.01 Elevation of levels of liver transaminase levels; R77.8 Other specified abnormalities of plasma proteins; T42.4X4A Poisoning by benzodiazepines, undetermined, initial encounter; Z51.5 Encounter for palliative care; Z66 Do not resuscitate; Y84.8 Other medical procedures as the cause of abnormal reaction of the patient, or of later complication, without mention of misadventure at the time of the procedure
CPT/HCPCS: 31500; 31720; 36415; 36600; 51702; 70450; 70551; 71045; 71275; 80048; 80053; 80076; 80307; 81001; 82077; 82140; 82550; 82803; 82962; 83036; 83735; 84100; 84145; 84443; 84478; 84484; 85025; 85610; 85730; 87040; 87070; 87205; 87811; 93005; 93306; 93458; 94002; 94003; 95819; 97802; 99251; 99285; J7030; J7040; Q9957; Q9967; A4216; C1769; C1894; C8929; G0463; J3010